=== PATIENT | female | born 1970 | race Caucasian/White ===

== ENCOUNTER 2016-07-07 13:45 | Emergency (ER) | payer OTHER ==
[2016-07-07 14:40] VITALS: BP 127/65
--- NOTE | 2016-07-07 14:41 | ER Document Report ---
ED Medical Screen (RME) - General Stated Complaint: POSSIBLE CONCUSSION Notes: pt was kneeling on her couch hanging a picture when she lost her balance and fell back and hit the back of her head on the edge of her coffee table. -LOC scalp hematoma confusion and drowsiness, dizziness for 15-20 minutesafter her fall nausea without vomiting headache is not on any blood thinners headache currently 3/5 took ibuprofen last night and today with minimal relief PMH: SLE TRAVEL OUTSIDE OF THE [place] IN LAST 30 DAYS: No - Related Data Allergies/Adverse Reactions: sulfamethoxazole [From ] Allergy (Verified 07/07/16 14:37) trimethoprim [From Febra] Allergy (Verified 07/07/16 14:37) Past Medical History Endocrine Medical History: Reports: Hx Diabetes Mellitus Type 2, Hx Hypothyroidism Psychiatric Medical History: Reports: Hx Attention Deficit Hyperactivity Disorder Past Surgical History: Reports: Hx Abdominal Surgery - gastric bypass,hernia, Hx Section, Hx Cholecystectomy, Hx Gastric Bypass Surgery, Hx Herniorrhaphy - With mesh, Hx Thyroid Surgery - Immunizations Immunizations up to date: Yes Hx Diphtheria, Pertussis, Tetanus Vaccination: No
--- NOTE | 2016-07-07 17:13 | ER Document Report ---
[id number] Notes: The patient is a 45-year-old female who presents with mild swelling at the back of her head where she hit it on a corner table last night. She did not lose consciousness. She took Motrin with relief of her symptoms and her headache resolved. She denies neck pain, left inner use, numbness, tingling, ataxia, blurry vision, nausea or vomiting. TRAVEL OUTSIDE OF THE [place] IN LAST 30 DAYS: No - Related Data Allergies/Adverse Reactions: sulfamethoxazole [From ] Allergy (Verified 07/07/16 14:37) trimethoprim [From Febra] Allergy (Verified 07/07/16 14:37) Past Medical History - General Information source: Patient - Social History Smoking Status: Current Every Day Smoker Chew tobacco use (# tins/day): No Frequency of alcohol use: None Drug Abuse: None Family History: Malignancy, Other Patient has suicidal ideation: No Patient has homicidal ideation: No Endocrine Medical History: Reports: Hx Diabetes Mellitus Type 2, Hx Hypothyroidism Renal/ Medical History: Denies: Hx Peritoneal Dialysis Psychiatric Medical History: Reports: Hx Attention Deficit Hyperactivity Disorder Past Surgical History: Reports: Hx Abdominal Surgery - gastric bypass,hernia, Hx Section, Hx Cholecystectomy, Hx Gastric Bypass Surgery, Hx Herniorrhaphy - With mesh, Hx Thyroid Surgery - Immunizations Immunizations up to date: Yes Hx Diphtheria, Pertussis, Tetanus Vaccination: No Review of Systems - Review of Systems Notes: REVIEW OF SYSTEMS: CONSTITUTIONAL: -fevers, -chills EENT: -eye pain, -difficulty swallowing, -nasal congestion CARDIOVASCULAR:-chest pain, -syncope. RESPIRATORY: -cough, -SOB GASTROINTESTINAL: -abdominal pain, - nausea, -vomiting, -diarrhea GENITOURINARY: -dysuria, -hematuria MUSCULOSKELETAL: -back pain, -neck pain SKIN: -rash or skin lesions. HEMATOLOGIC: -easy bruising or bleeding. LYMPHATIC: -swollen, enlarged glands. NEUROLOGICAL: -altered mental status or loss of consciousness, +headache, - neurologic symptoms PSYCHIATRIC: -anxiety, -depression. ALL OTHER SYSTEMS REVIEWED AND NEGATIVE. Physical Exam - Vital signs Vitals: Temp Pulse Resp BP Pulse Ox 98.1 F 80 18 127/65 H 96 07/07/16 14:37 07/07/16 14:37 07/07/16 14:37 07/07/16 14:37 07/07/16 14:37 - Notes Notes: PHYSICAL EXAMINATION: GENERAL: Well-appearing, well-nourished and in no acute distress. HEAD: Small hematoma over right parietal area, no open wounds, normocephalic. EYES: Pupils equal round and reactive to light, extraocular movements intact, sclera anicteric, conjunctiva are normal. ENT: nares patent, oropharynx clear without exudates. Moist mucous membranes. NECK: Normal range of motion, supple without lymphadenopathy LUNGS: Breath sounds clear to auscultation bilaterally and equal. No wheezes rales or rhonchi. HEART: Regular rate and rhythm without murmurs ABDOMEN: Soft, nontender, normoactive bowel sounds. No guarding, no rebound. No masses appreciated. EXTREMITIES: Normal range of motion, no pitting or edema. No cyanosis. NEUROLOGICAL: Cranial nerves grossly intact. Normal speech, normal gait. Normal sensory, motor, and reflex exams. PSYCH: Normal mood, normal affect. SKIN: Warm, Dry, normal turgor, no rashes or lesions noted. Course - Re-evaluation Re-evalutation: CT head ordered before I could see patient. No intracranial bleeding or skull fracture on CT had. Small right parietal hematoma. Instructed patient symptomatically management and given concussion precautions. She understands. - Vital Signs Vital signs: Temp Pulse Resp BP Pulse Ox 98.1 F 80 18 127/65 H 96 07/07/16 16:05 07/07/16 16:05 07/07/16 16:05 07/07/16 16:05 07/07/16 16:05 Discharge - Discharge Clinical Impression: Hematoma Head injury Qualifiers: Encounter type: initial encounter Qualified Code(s): S09.90XA - Unspecified injury of head, initial encounter Condition: Good Disposition: HOME, SELF-CARE Additional Instructions: Concussion You have suffered a concussion -- a temporary loss of certain brain functions due to a mild brain injury. The recovery is usually rapid and complete. The temporary problems occurring with a concussion can include loss of consciousness, dizziness, nausea, vomiting, and confusion. Repeat concussions can cause brain damage. In the future, avoid activities that will cause a blow to your head. Wear a helmet for sports such as snowboarding, biking, or skating. It's important that someone be with you for the first 24 hours. During this time, do not exercise or drive a vehicle. Do not take any pain medication stronger than acetaminophen unless prescribed by the physician. Any significant changes should be reported immediately to the physician. Signs of a problem may include: (1) Mental confusion (2) Incoordination or staggering (3) Repeated or forceful vomiting (4) Clear or bloody drainage from ear, mouth, or nose (5) Severe headache, not relieved by acetaminophen or prescribed pain medication (6) Failure to improve in 24 hours
== END 2016-07-07 16:30 | disposition home or self-care (01) ==
LOC: ER 13:45
DX: S09.90XA Unspecified injury of head, initial encounter (principal); R22.0 Localized swelling, mass and lump, head; R51 Headache; F17.210 Nicotine dependence, cigarettes, uncomplicated; X58.XXXA Exposure to other specified factors, initial encounter
CPT/HCPCS: 70450; 99283

== ENCOUNTER 2019-12-01 19:38 | Inpatient (IN) | payer OTHER ==
[2019-12-01] MEDS ORDERED: DEXTROSE 5%-WATER 250 ML with NOREPINEPHRINE BITARTRATE 4 MG IV PRN ×4 (20:09→22:57)
[2019-12-01] MEDS ORDERED: RINGERS LACTATED IV ONE (20:14)
[2019-12-01] MEDS ORDERED: VANCOMYCIN HCL INJ 1000 MG VIAL IV ONE (20:14)
[2019-12-01] MEDS ORDERED: PIPERACILLIN/TAZOBACTAM 4.5 GM VIAL IV ONE (20:14)
--- NOTE | 2019-12-01 20:23 | ER Document Report ---
ED General - General Chief Complaint: Respiratory Arrest Stated Complaint: RESPIRATORY DISTRESS TRAVEL OUTSIDE OF THE [place] IN LAST 30 DAYS: No - HPI Notes: Chief complaint: Cardiorespiratory arrest HPI: 49-year-old female with past history of gastric bypass surgery and SLE found down on the floor at home by family under undetermined circumstances. Family members felt that she was not breathing did not have a pulse and they initiated bystander CPR. EMS was called. Upon their arrival patient had a thready pulse and was still not breathing. They did not administer Narcan. They checked the blood sugar and reported this was 140. They attempted orotracheal intubation and patient vomited a large amount and I suspect that she aspirated. They subsequently placed an I-GEL airway. They were unable to obtain peripheral IV access and placed on intraosseous line. They administered a liter of saline and transported the patient. Her systolic blood pressure was 80 during transport. No other information is immediately available for this patient. - Related Data Allergies/Adverse Reactions: sulfamethoxazole [From ] Allergy (Verified 12/01/19 20:16) trimethoprim [From Febra] Allergy (Verified 12/01/19 20:16) Past Medical History - General Information source: Emergency Med Personnel, [facility] Records - Social History Smoking Status: Unknown if Ever Smoked Family History: Malignancy, Other Endocrine Medical History: Reports: Hx Diabetes Mellitus Type 2, Hx Hypothyroidism Renal/ Medical History: Denies: Hx Peritoneal Dialysis Musculoskeletal Medical History: Reports Hx Systemic Lupus Erythematosus Psychiatric Medical History: Reports: Hx Attention Deficit Hyperactivity Disorder Past Surgical History: Reports: Hx Abdominal Surgery - gastric bypass,hernia, Hx Section, Hx Cholecystectomy, Hx Gastric Bypass Surgery, Hx Herniorrhaphy - With mesh, Hx Thyroid Surgery - Immunizations Immunizations up to date: Yes Hx Diphtheria, Pertussis, Tetanus Vaccination: No Review of Systems - Review of Systems -: Yes ROS unobtainable due to patient's medical condition Physical Exam - Vital signs Vitals: Temp 93.4 F L 12/01/19 19:40 - Notes Notes: GENERAL: Obese middle-aged female with I-GEL airway in place being bagged on arrival. SKIN: Pale, cool and diaphoretic. Multiple abrasions noted over both upper extremities. HEAD: Normocephalic atraumatic. EYES: Pupils are mid position equal and sluggishly reactive to light. Gaze is conjugate. Conjunctivae and sclerae clear. EARS: CANALS AND TMS CLEAR. NOSE: CLEAR. MOUTH: I-GEL tube in mouth. Moist mucosa. Good dentition. No stridor or edema. No drooling. NECK: Semirigid c-collar in situ. No masses or thyromegaly. No adenopathy. Carotids 2+ without bruits. No JVD. BACK: Not examined initially. CHEST: Patient is being bagged at this time. Breath sounds clear and symmetrical. HEART: Regular rhythm. No murmur gallop or rub. ABDOMEN: Soft obese nontender without masses, organomegaly or rebound. Healed midline surgical scar present bowel sounds normally active. No bruits. GENITALIA: Normal female. EXTREMITIES: IO line is present in the left pretibial region. No edema. No calf tenderness. Cap refill less than 1.5 seconds. Dorsalis pedis and posterior tibial pulses 3+ and symmetrical. NEUROLOGICAL: GCS 3T. No posturing. Course - Re-evaluation Re-evalutation: 12/01/19 21:47 This lady was intubated upon presentation with report that she had had a cardiorespiratory arrest in the field. She was persistently unresponsive. Rapid sequence intubation was accomplished without difficulty. Patient is on mechanical ventilation. She has had 30 cc/kg of crystalloid per sepsis protocol. Blood cultures were drawn. She is hypothermic. We empirically gave her IV antibiotic coverage with Zosyn and vancomycin. Her lactate was approximately 3.5. She also has a new elevation of creatinine to 2.0 consistent with acute kidney injury. Her EKG showed some QT prolongation but no axis shift. She had no acute ST or T wave changes. Her initial troponin is within normal range. Her urine tox screen was remarkable for opiates. We subsequently found out that there were suicide notes in the home and patient had access to tramadol and this is a suspected agent that she ingested. She is continuing to require support with Levophed. Patient has been accepted for admission to the critical care unit. - Vital Signs Vital signs: Temp Pulse Resp BP Pulse Ox 93.4 F L 15 113/84 100 12/01/19 20:51 12/01/19 20:51 12/01/19 20:51 12/01/19 20:41 - Laboratory Result Diagrams: 12/01/19 20:22 12/01/19 20:22 Laboratory results interpreted by me: 12/01/19 12/01/19 12/01/19 20:09 20:22 20:22 RBC 3.56 L MCV 103 H MCH 34.7 H RDW 15.1 H Lymph % (Auto) 11.7 L Seg Neutrophils % 83.9 H Carbonic Acid ABG pH ABG pCO2 Sodium 136.0 L Chloride 96 L Creatinine 2.01 H Est GFR ( Amer) 32 L Est GFR (MDRD) Non-Af 26 L Glucose 132 H POC Glucose Lactic Acid AST 83 H Total Protein 9.1 H Urine Protein 100 H Salicylates Acetaminophen 12/01/19 12/01/19 12/01/19 20:22 20:22 20:32 RBC MCV MCH RDW Lymph % (Auto) Seg Neutrophils % Carbonic Acid 1.75 H ABG pH 7.18 L* ABG pCO2 58.1 H Sodium Chloride Creatinine Est GFR ( Amer) Est GFR (MDRD) Non-Af Glucose POC Glucose Lactic Acid 3.9 H AST Total Protein Urine Protein Salicylates < 1.0 L Acetaminophen < 10 L 12/01/19 21:06 RBC MCV MCH RDW Lymph % (Auto) Seg Neutrophils % Carbonic Acid ABG pH ABG pCO2 Sodium Chloride Creatinine Est GFR ( Amer) Est GFR (MDRD) Non-Af Glucose POC Glucose 114 H Lactic Acid AST Total Protein Urine Protein Salicylates Acetaminophen - EKG Interpretation by Me Additional EKG results interpreted by me: 12/01/19 20:29 Twelve-lead EKG from 1956 hrs. is reviewed contemporaneously by me showing normal sinus rhythm with a rate of 73 and a QRS axis of +17 degrees. QT interval is prolonged with a corrected QT of 543 ms. There are no acute ST/T wa ve changes present. When compared to prior tracing from 12/31/2013 we note interval development of QT prolongation. Indication for current study: Status post cardiopulmonary arrest. Procedures - Intubation Orotracheal Airway evaluation: Copious secretions, Neck immobility, Obese Mallampati Classification: Class 3 Medications: Etomidate, Succinylcholine Intubation method: Orotracheal Blade type: Other - [place] scope Blade size: 3 Equipment used: Glidescope ETT size: 7.5 ETT secured at: Teeth ETT secured at (cm): 22 Breath Sounds after Intubation: Equal End tidal CO2 confirmed: Yes Ventilator settings: SIMV Intubation Complications: No complications Critical Care Note - Critical Care Note Total time excluding time spent on procedures (mins): 75 - Patient presented status post cardiorespiratory arrest. I have intubated her. Sepsis protocol initiated. She is hypothermic. Levophed IV for shock. Discharge - Discharge Clinical Impression: Cardiopulmonary arrest with successful resuscitation Opiate overdose Qualifiers: Encounter type: initial encounter Injury intent: undetermined intent Qualified Code(s): T40.604A - Poisoning by unspecified narcotics, undetermined, initial encounter Condition: Critical Disposition: ADMITTED INPATIENT Admitting Provider: Malcolm Mccrary Unit Admitted: ICU
[2019-12-01 20:33] LABS: APPEARANCE,URINE CLEAR; BILIRUBIN,URINE NEGATIVE (NEGATIVE); COLOR,URINE YELLOW; GLUCOSE, URINE NEGATIVE (NEGATIVE); KETONES,URINE NEGATIVE (NEGATIVE); PROTEIN,URINE 100 mg/dL (NEGATIVE); URINE SPECIFIC GRAVITY 1.008; UROBILINOGEN,URINE NEGATIVE mg/dL (<2.0)
[2019-12-01 20:44] LABS: ABSOLUTE MONOCYTES (AUTO) 0.3 10^3/uL (0.1-1.4); ABSOLUTE NEUT (AUTO) 7.1 10^3/uL (1.7-8.2); BASOPHILS % (AUTO) 0.3 % (0-2); EOSINOPHILS % (AUTO) 0.1 % (0-6); HEMATOCRIT 36.6 % (36.0-47.0); HEMOGLOBIN 12.3 g/dL (12.0-15.5); LYMPHOCYTES % (AUTO) 11.7 % (13-45); MEAN CORPUSCULAR HEMOGLOBIN 34.7 pg (27.0-33.4); MEAN CORPUSCULAR HGB CONC 33.7 g/dL (32.0-36.0); MEAN CORPUSCULAR VOLUME 103 fl (80-97); PLATELET COUNT 239 10^3/uL (150-450); RED BLOOD COUNT 3.56 10^6/uL (3.72-5.28); RED CELL DISTRIBUTION WIDTH 15.1 % (11.5-14.0); SEGMENTED NEUTROPHILS % (AUTO) 83.9 % (42-78); TOTAL CELLS COUNTED % (AUTO) 100 %; WHITE BLOOD COUNT 8.5 10^3/uL (4.0-10.5)
[2019-12-01] MEDS ORDERED: ETOMIDATE INJ/PF 20 MG/10 ML SDV IV ONE (20:45)
[2019-12-01] MEDS ORDERED: SUCCINYLCHOLINE CHLORIDE INJ 200 MG/10 ML VIAL IV ONE (20:45)
[2019-12-01 20:51] LABS: INTERNATIONAL RATION (INR) 1.01; PROTHROMBIN TIME 13.3 SEC (11.4-15.4)
--- NOTE | 2019-12-01 20:53 | RADIOLOGY REPORT (SQ) ---
EXAM DESCRIPTION: XR CHEST 1 VIEW COMPLETED DATE/TME: 12/01/2019 20:10 CLINICAL HISTORY: 49 years, Female, post-intubation COMPARISON: Prior study from 04/23/2015 NUMBER OF VIEWS: 2 TECHNIQUE: 2 frontal radiographs of the chest were acquired. LIMITATIONS: None. FINDINGS: Endotracheal tube tip is located within the trachea, approximately 3.4 cm above the parveen. Enteric drainage tube tip curls within the gastric fundus. Cardiac and mediastinal contours are stable. Lungs are clear. No pleural effusion or pneumothorax. There is diffuse gaseous distention of visualized bowel loops throughout the imaged upper abdomen. The stomach is also distended with gas. IMPRESSION: Clear lungs. Endotracheal tube tip is located within the trachea, approximately 3.4 cm above the parveen. Diffuse dilatation of bowel loops throughout the imaged upper abdomen, indeterminate. copyright 2010 [employer]- All Rights Reserved
[2019-12-01 21:09] LABS: ALKALINE PHOSPHATASE 121 U/L (38-126); ANION GAP 13 (5-19); ASPARTATE AMINO TRANSFERASE 83 U/L (14-36); BILIRUBIN,DIRECT 0.3 mg/dL (0.0-0.4); BILIRUBIN,TOTAL 0.6 mg/dL (0.2-1.3); BLOOD UREA NITROGEN 14 mg/dL (7-20); CARBON DIOXIDE 27 mmol/L (22-30); CHLORIDE 96 mmol/L (98-107); GLUCOSE 132 mg/dL (75-110); POTASSIUM 4.2 mmol/L (3.6-5.0); TOTAL PROTEIN 9.1 g/dL (6.3-8.2)
[2019-12-01 21:11] LABS: ACETAMINOPHEN < 10 ug/mL (10-30); ALCOHOL < 10 mg/dL (NONE DETECTED); SALICYLATE < 1.0 mg/dL (2.0-20.0)
[2019-12-01 21:26] LABS: URINE AMPHETAMINES SCREEN NEGATIVE; URINE BARBITURATES SCREEN NEGATIVE; URINE BENZODIAZEPINES SCREEN NEGATIVE; URINE COCAINE SCREEN NEGATIVE; URINE MARIJUANA (THC) SCREEN NEGATIVE; URINE METHADONE SCREEN NEGATIVE; URINE PHENCYCLIDINE SCREEN NEGATIVE
[2019-12-01 21:27] LABS: ARTERIAL BLOOD BASE EXCESS -7.4 mmol/L; ARTERIAL BLOOD H2CO3 1.75 mmol/L (1.05-1.35); ARTERIAL BLOOD HCO3 21.4 mmol/L (20-24); ARTERIAL BLOOD O2 SATURATION 95.5 % (94-98); ARTERIAL BLOOD PCO2 58.1 mmHg (35-45); ARTERIAL BLOOD PO2 96.4 mmHg (80-100); ARTERIAL BLOOD TOTAL CO2 23.2 mmol/L (21-25)
[2019-12-01 21:29] LABS: ARTERIAL BLOOD FIO2 100%; ARTERIAL BLOOD PH 7.18 (7.35-7.45)
[2019-12-01] MEDS ORDERED: DEXTROSE 50%-WATER 25 GM/50 ML DISP.SYRIN IV PRN ×4 (22:57→23:03)
[2019-12-01] MEDS ORDERED: DEXTROSE 40% GEL 15 GM TUBE PO PRN ×4 (22:57→23:03)
[2019-12-01] MEDS ORDERED: GLUCAGON,HUMAN RECOMB 1 MG INJ SUBCUT PRN (22:57)
[2019-12-01] MEDS ORDERED: GLUCAGON,HUMAN RECOMB 1 MG INJ IM PRN (23:03)
[2019-12-01] MEDS ORDERED: AMPICILLIN SOD/SULBACTAM 3 GM VIAL IV ONE (23:10)
--- NOTE | 2019-12-01 23:23 | EKG REPORT ---
SEVERITY:- ABNORMAL ECG - SINUS RHYTHM NONSPECIFIC T ABNORMALITIES, LATERAL LEADS PROLONGED QT INTERVAL : Confirmed by: Beryl Downing 01-Dec-2019 23:22:35
[2019-12-01] MEDS ORDERED: HEPARIN SOD (PORCINE) 5,000 UNIT/ML 1 ML VIAL SUBCUT ONE (23:30)
[2019-12-01] MEDS ORDERED: PANTOPRAZOLE SODIUM 40 MG VIAL IV ONE (23:30)
--- NOTE | 2019-12-01 23:44 | RADIOLOGY REPORT (SQ) ---
INDICATION: trauma. TECHNIQUE: A single cross table lateral view(s) of the cervical spine. 2310 hours COMPARISON: None FINDINGS: Imaging skull base to C5. C6 and C7 are not adequately seen. No acute displaced fractures identified the visualized portion of the cervical spine. Alignment appears anatomic. . IMPRESSION: No acute displaced fracture is identified of the upper cervical spine.
[2019-12-02] MEDS ORDERED: ETOMIDATE INJ/PF 20 MG/10 ML SDV IV ONE (01:00)
[2019-12-02] MEDS ORDERED: NOREPINEPHRINE BITARTRATE INJ/PF 4 MG/4 ML SDV IV ONE (01:00)
[2019-12-02] MEDS ORDERED: SUCCINYLCHOLINE CHLORIDE INJ 200 MG/10 ML VIAL ONE (01:00)
[2019-12-02] MEDS: INSULIN REG, HUMAN 100 UNIT/ML 3 ML VIAL (PYX) SUBCUT SCH ×4 (01:00→18:25)
--- NOTE | 2019-12-02 01:13 | RADIOLOGY REPORT (SQ) ---
INDICATION: ams. Pain post fall COMPARISON: None CORRELATION: None TECHNIQUE: Noncontrast spiral axial CT images were obtained from the skull base to vertex. Noncontrast spiral axial CT imaging through the cervical spine with multiplanar reconstructions. This exam was performed according to our departmental dose-optimization program, which includes automated exposure control, adjustment of the mA and/or kV according to patient size and/or use of iterative reconstruction techniques. FINDINGS: BRAIN: There is no evidence of acute intracranial hemorrhage, midline shift, mass effect or mass lesion. Meade-white differentiation is normal. There is no evidence of acute large territory infarct. Ventricles and extracerebral spaces are within normal limits, for age. Vascular calcification The visualized paranasal sinuses are grossly clear. The orbits and eyeballs are unremarkable. The mastoid air cells are clear. Skull base and calvarium appear intact. CERVICAL SPINE: No acute displaced fracture is identified of the cervical spine. Alignment is anatomic. No focal alignment abnormality is identified. The uncovertebral joints and facets are within normal limits, for age. Surrounding soft tissues of the neck are unremarkable. Mild vascular calcification. Endotracheal tube and nasogastric tube are identified. Mild dependent airspace disease right upper lobe. IMPRESSION: No acute intracranial process is identified. No acute bony injury is seen to the cervical spine.
--- NOTE | 2019-12-02 01:28 | CRITICAL CARE ADMISSION REPORT ---
[facility] Date:: 12/01/19 Time:: 10:30 Reason for ICU Reason:: Respiratory Failure, Hypotension. HPI: 49 year-old female with a history of SLE, chronic back pain and gastric bypass surgery. She was found on the floor at home by her family and was not breathing. Family initiated CPR and activated EMS. EMS found patient to have a thready pulse but was still not breathing. Patient did vomit a large amount and aspiration is suspected. Patient was intubated on arrival in the emergency department. She had multiple episodes of hypotension and a Levophed drip was started. Critical care was called to evaluate the patient given her acute respiratory failure hypotension. Extensive conversation held with family including the patient's sister, and daughter and who is her next of kin. Family all agree that she would not have wanted to be intubated and they would like her to be extubated this evening. In review of the patient's prior stated wishes as well as a consensus from family members, the decision was made to remove ventilatory support. Family has been permitted to visit during what could be an end-of-life situation. They understand that when extubated, patient may very well survive and the outcome would be unknown. At this time, patient is arousable and remains intubated while awaiting family. History obtained from:: Chart documentation - Diagnosis/Plan (1) Respiratory failure requiring intubation Is this a current diagnosis for this admission?: Yes Plan: Initial ABG in ED showed a pH of 7.18 and a PCO2 of 58. SPO2 was also decreased. Patient's ventilation mode was changed to pressure control with a minute ventilation of 8 L/min. SPO2 has since improved. 1. Patient likely with acute aspiration pneumonia. Will start Unasyn. 2. Obtain ABG 30 minutes after transfer to intensive care unit to evaluate vent settings. 3. Obtain chest x-ray in a.m. Through verbal report from ED RN, patient may wish to be made DNR. I will reach out to her family this evening to discuss her CODE STATUS and options for withdrawing vent support if that is in line with her previously stated desires. (2) Cardiopulmonary arrest with successful resuscitation Is this a current diagnosis for this admission?: Yes Plan: As mentioned above, patient may have had wishes to be DNR. Family however, initiated CPR at home and resuscitative efforts such as intubation were continued once in the emergency department without any knowledge of her wishes. I will reach out to her family to discuss goals of care. I will also be speaking to the family to see if central venous access is desired and if so, will obtain consent. 1. Continue patient on Levophed for now. 2. Central line for vasoactive medications to be placed upon family's consent. 3. Maintain MAP greater than 70. (3) Opiate overdose Qualifiers: Encounter type: initial encounter Injury intent: undetermined intent Qualified Code(s): T40.604A - Poisoning by unspecified narcotics, undetermined, initial encounter Is this a current diagnosis for this admission?: Yes Plan: Patient reportedly took a large dose of tramadol and has been on chronic opioids for back pain. According to RN and Norberto Walls report, notes left and the patient home may indicate a suicide attempt. If patient's family desire extubation due to her previously stated wishes, we will administer Narcan prior to extubation. Past Medical History Endocrine Medical History: Reports: Diabetes Mellitus Type 2, Hypothyroidism Psychiatric Medical History: Reports: Attention Deficit Hyperactivity Disorder Past Surgical History Past Surgical History: Reports: Section, Cholecystectomy, Gastric Bypass Surgery, Herniorrhaphy - With mesh Social/Family History - Social History Social History Note: Report from Norberto Walls indicate possible suicide attempt with multiple suicide notes left in her home. Smoking Status: Unknown if Ever Smoked - Medication/Allergies Home Medications: Lamotrigine [Lamictal 100 mg Tablet] 200 mg PO QAM 12/31/13 Lamotrigine [Lamictal 100 mg Tablet] 400 mg PO QHS 12/31/13 Levothyroxine Sodium [Synthroid] 175 mcg PO DAILY 12/31/13 Metformin HCl [Glucophage] 1,000 mg PO DAILY 12/31/13 Zolpidem Tartrate [Ambien CR 12.5 mg Tablet] 12.5 mg PO QHS 12/31/13 Albuterol Sulfate [Proair HFA Inhalation Aerosol 8.5 gm MDI] 2 puff IH Q4 PRN #1 mdi 02/22/15 Cetirizine HCl [Zyrtec 10 mg Tablet] 10 mg PO DAILY 02/22/15 Cholecalciferol (Vitamin D3) [Vitamin D-3] 1.25 mg PO DAILY 02/22/15 Cyanocobalamin (Vitamin B-12) [Vitamin B-12] 1,000 mcg PO [id number] 02/22/15 Prednisone 60 mg PO DAILY #5 tablet 02/22/15 Hydrocodone/Acetaminophen [[place] 5-325 mg Tablet] 1 tab PO PRN PRN #10 tablet 02/09/16 Allergies/Adverse Reactions: sulfamethoxazole [From Septra] Allergy (Verified 12/01/19 20:16) trimethoprim [From Septra] Allergy (Verified 12/01/19 20:16) Review of Systems ROS unobtainable: Due to endotracheal tube Physical Exam Vital Signs: Temp Pulse Resp BP Pulse Ox 94.3 F L 16 167/90 H 94 12/01/19 22:21 12/01/19 22:21 12/01/19 22:21 12/01/19 22:21 Intake & Output 11/30/19 12/01/19 12/02/19 06:59 06:59 06:59 Intake Total 0 Output Total 1999 Balance -1999 Weight 87.4 kg Weight/Height Weight 87.4 kg Height 5 ft 6 in General appearance: PRESENT: no acute distress Head exam: PRESENT: atraumatic Eye exam: PRESENT: EOMI, PERRLA Mouth exam: PRESENT: dry mucosa Neck exam: PRESENT: other - Awaiting cervical spine clearance. Currently in cervical spine immobilizer. Respiratory exam: PRESENT: rhonchi. ABSENT: rales, wheezes Cardiovascular exam: PRESENT: RRR, +S1, +S2 Pulses: PRESENT: +2 pedal pulses bilateral Vascular exam: PRESENT: normal capillary refill GI/Abdominal exam: PRESENT: hypoactive bowel sounds, soft. ABSENT: tenderness Extremities exam: PRESENT: full ROM. ABSENT: joint swelling, pedal edema Musculoskeletal exam: PRESENT: full ROM, normal inspection Neurological exam: PRESENT: awake, CN II-XII grossly intact Tubes/Lines: PRESENT: Endotracheal Tube Laboratory/Radiographs Laboratory Results: 12/01/19 20:22 12/01/19 20:22 12/01/19 12/01/19 12/01/19 20:09 20:22 20:22 WBC 8.5 RBC 3.56 L Hgb 12.3 Hct 36.6 MCV 103 H MCH 34.7 H MCHC 33.7 RDW 15.1 H Plt Count 239 Seg Neutrophils % 83.9 H Carbonic Acid HCO3/H2CO3 Ratio ABG pH ABG pCO2 ABG pO2 ABG HCO3 ABG O2 Saturation ABG Base Excess FiO2 Sodium 136.0 L Potassium 4.2 Chloride 96 L Carbon Dioxide 27 Anion Gap 13 BUN 14 Creatinine 2.01 H Est GFR ( Amer) 32 L Glucose 132 H Lactic Acid Calcium 9.0 Total Bilirubin 0.6 AST 83 H Alkaline Phosphatase 121 Total Protein 9.1 H Albumin 5.0 Serum HCG, Qual Urine Color YELLOW Urine Appearance CLEAR Urine pH 5.0 Ur Specific [place] 1.008 Urine Protein 100 H Urine Glucose (UA) NEGATIVE Urine Ketones NEGATIVE Urine Blood NEGATIVE 12/01/19 12/01/19 12/01/19 20:22 20:22 20:32 WBC RBC Hgb Hct MCV MCH MCHC RDW Plt Count Seg Neutrophils % Carbonic Acid 1.75 H HCO3/H2CO3 Ratio 12:1 ABG pH 7.18 L* ABG pCO2 58.1 H ABG pO2 96.4 ABG HCO3 21.4 ABG O2 Saturation 95.5 ABG Base Excess -7.4 FiO2 100% Sodium Potassium Chloride Carbon Dioxide Anion Gap BUN Creatinine Est GFR ( Amer) Glucose Lactic Acid 3.9 H Calcium Total Bilirubin AST Alkaline Phosphatase Total Protein Albumin Serum HCG, Qual NEGATIVE Urine Color Urine Appearance Urine pH Ur Specific [place] Urine Protein Urine Glucose (UA) Urine Ketones Urine Blood 12/01/19 20:22 Troponin I 0.031 Impressions: Chest X-Ray 12/01/19 20:10 IMPRESSION: Clear lungs. Endotracheal tube tip is located within the trachea, approximately 3.4 cm above the parveen. Diffuse dilatation of bowel loops throughout the imaged upper abdomen, indeterminate. copyright 2011 [employer]- All Rights Reserved All labs, radiographs, diagnostic studies and EKGs were personally reviewed: Yes In addition, reports of radiographic and diagnostic studies were read: Yes Critical Time Critical Time (minutes): 75 -: The care of a critically ill patient is dynamic. This note represents a static moment in the admission process. Orders and treatments may be given simultaneously and urgently, and time is not human resources hr representative of the treatment process. This patient requires Critical Care secondary to life threatening organ or limb dysfunction. Without Critical Care services, the patient is at risk for increased mortality and morbidity.
[2019-12-02] MEDS ORDERED: NALOXONE HCL INJ 2 MG/2 ML DISP.SYRIN IV ONE (01:30)
[2019-12-02] MEDS: NALOXONE HCL INJ 2 MG/2 ML DISP.SYRIN ONE ×2 (01:44)
[2019-12-02] MEDS ORDERED: AMPICILLIN SOD/SULBACTAM 3 GM VIAL ONE (01:52)
[2019-12-02] MEDS ORDERED: IPRATROPIUM/ALBUTEROL 0.5-2.5 MG/3 ML AMPUL NEB ONE ×2 (02:45→03:00)
[2019-12-02] MEDS ORDERED: PANTOPRAZOLE SODIUM 40 MG VIAL IV ONE (03:48)
[2019-12-02 05:16] LABS: ALBUMIN 4.2 g/dL (3.5-5.0); ALKALINE PHOSPHATASE 97 U/L (38-126); ANION GAP 10 (5-19); ASPARTATE AMINO TRANSFERASE 74 U/L (14-36); BILIRUBIN,DIRECT 0.1 mg/dL (0.0-0.4); BILIRUBIN,TOTAL 0.6 mg/dL (0.2-1.3); BLOOD UREA NITROGEN 11 mg/dL (7-20); CALCIUM 8.4 mg/dL (8.4-10.2); CARBON DIOXIDE 27 mmol/L (22-30); CHLORIDE 95 mmol/L (98-107); GLUCOSE 116 mg/dL (75-110); POTASSIUM 4.3 mmol/L (3.6-5.0); TOTAL PROTEIN 7.7 g/dL (6.3-8.2)
[2019-12-02 05:18] LABS: HEMATOCRIT 34.2 % (36.0-47.0); HEMOGLOBIN 11.6 g/dL (12.0-15.5); MEAN CORPUSCULAR HGB CONC 33.9 g/dL (32.0-36.0); MEAN CORPUSCULAR VOLUME 100 fl (80-97); PLATELET COUNT 212 10^3/uL (150-450); RED BLOOD COUNT 3.41 10^6/uL (3.72-5.28); RED CELL DISTRIBUTION WIDTH 14.8 % (11.5-14.0); WHITE BLOOD COUNT 6.5 10^3/uL (4.0-10.5)
[2019-12-02] MEDS: HEPARIN SOD (PORCINE) 5,000 UNIT/ML 1 ML VIAL SUBCUT SCH ×3 (05:55→21:31)
[2019-12-02 06:00] LABS: ABSOLUTE LYMPHOCYTES# (MANUAL) 0.8 10^3/uL (0.5-4.7); ABSOLUTE MONOCYTES # (MANUAL) 0.4 10^3/uL (0.1-1.4); BAND NEUTROPHILS % (MANUAL) 6 % (3-5); BASOPHILS % (MANUAL) 0 % (0-2); EOSINOPHILS % (MANUAL) 0 % (0-6); LYMPHOCYTES % (MANUAL) 13 % (13-45); MONOCYTES % (MANUAL) 6 % (3-13); RBC MORPHOLOGY COMMENT NORMO-CYTIC/CHROMIC; SEGMENTED NEUTROPHILS % (MAN) 75 % (42-78); TOTAL CELLS COUNTED 100
[2019-12-02 06:01] LABS: PLATELET COMMENT ADEQUATE
[2019-12-02] MEDS: RINGERS SOLUTION,LACTATED 1,000 ML IV PRN ×3 (08:01→23:16)
--- NOTE | 2019-12-02 09:03 | PDOC CRITICAL CARE PROG REPORT ---
General Date:: 12/02/19 ICU Day:: 2 Hospital Day:: 2 Resuscitation Status: Do Not Resuscitate Events in the past 12 to 24 Hours:: Extubated and made DNR/DNI by family and her own wishes. Review of systems relevant to events:: Respiratory, rheumotalogical Reason for ICU Addmission:: Respiratory Failure, Hypotension. Intubated until this AM - Medications: Medications reviewed and adjusted accordingly: Yes Vasopressors:: None Sedation:: None Physical Exam Vital Signs: Temp Pulse Resp BP Pulse Ox 99.7 F 81 11 L 80/61 L 93 12/02/19 05:44 12/02/19 02:51 12/02/19 08:33 12/02/19 06:13 12/02/19 08:33 Intake & Output 12/01/19 12/02/19 12/03/19 06:59 06:59 06:59 Intake Total 2621 Output Total 3025 Balance -404 Weight 85.5 kg Weight/Height Weight 85.5 kg Height 5 ft 7 in General appearance: PRESENT: no acute distress Head exam: PRESENT: atraumatic, normocephalic Eye exam: PRESENT: conjunctiva pink, EOMI, PERRLA. ABSENT: scleral icterus Ear exam: PRESENT: normal external ear exam Mouth exam: PRESENT: moist, tongue midline Neck exam: ABSENT: carotid bruit, JVD, lymphadenopathy, thyromegaly Respiratory exam: PRESENT: clear to auscultation rasta, decreased breath sounds, other - Shallow Cardiovascular exam: PRESENT: RRR. ABSENT: diastolic murmur, rubs, systolic m urmur GI/Abdominal exam: PRESENT: normal bowel sounds, soft. ABSENT: distended, guarding, mass, organolmegaly, rebound, tenderness Rectal exam: PRESENT: deferred Gentrourinary exam: PRESENT: indwelling catheter Extremities exam: PRESENT: full ROM. ABSENT: calf tenderness, clubbing, pedal edema Musculoskeletal exam: PRESENT: normal inspection Neurological exam: PRESENT: altered, other - Arousable but still altered. Psychiatric exam: PRESENT: flat affect Skin exam: PRESENT: dry, intact, warm. ABSENT: cyanosis, rash Laboratory/Radiographs Laboratory Results: 12/02/19 04:37 12/02/19 04:37 12/01/19 12/01/19 12/01/19 20:09 20:22 20:22 WBC 8.5 RBC 3.56 L Hgb 12.3 Hct 36.6 MCV 103 H MCH 34.7 H MCHC 33.7 RDW 15.1 H Plt Count 239 Seg Neutrophils % 83.9 H Carbonic Acid HCO3/H2CO3 Ratio ABG pH ABG pCO2 ABG pO2 ABG HCO3 ABG O2 Saturation ABG Base Excess FiO2 Sodium 136.0 L Potassium 4.2 Chloride 96 L Carbon Dioxide 27 Anion Gap 13 BUN 14 Creatinine 2.01 H Est GFR ( Amer) 32 L Glucose 132 H Lactic Acid Calcium 9.0 Total Bilirubin 0.6 AST 83 H Alkaline Phosphatase 121 Total Protein 9.1 H Albumin 5.0 Serum HCG, Qual Urine Color YELLOW Urine Appearance CLEAR Urine pH 5.0 Ur Specific [place] 1.008 Urine Protein 100 H Urine Glucose (UA) NEGATIVE Urine Ketones NEGATIVE Urine Blood NEGATIVE 12/01/19 12/01/19 12/01/19 20:22 20:22 20:32 WBC RBC Hgb Hct MCV MCH MCHC RDW Plt Count Seg Neutrophils % Carbonic Acid 1.75 H HCO3/H2CO3 Ratio 12:1 ABG pH 7.18 L* ABG pCO2 58.1 H ABG pO2 96.4 ABG HCO3 21.4 ABG O2 Saturation 95.5 ABG Base Excess -7.4 FiO2 100% Sodium Potassium Chloride Carbon Dioxide Anion Gap BUN Creatinine Est GFR ( Amer) Glucose Lactic Acid 3.9 H Calcium Total Bilirubin AST Alkaline Phosphatase Total Protein Albumin Serum HCG, Qual NEGATIVE Urine Color Urine Appearance Urine pH Ur Specific [place] Urine Protein Urine Glucose (UA) Urine Ketones Urine Blood 12/02/19 12/02/19 12/02/19 01:06 04:37 04:37 WBC 6.5 RBC 3.41 L Hgb 11.6 L Hct 34.2 L MCV 100 H MCH 34.0 H MCHC 33.9 RDW 14.8 H Plt Count 212 Seg Neutrophils % Not Reportable Carbonic Acid HCO3/H2CO3 Ratio ABG pH ABG pCO2 ABG pO2 ABG HCO3 ABG O2 Saturation ABG Base Excess FiO2 Sodium Potassium Chloride Carbon Dioxide Anion Gap BUN Creatinine Est GFR ( Amer) Glucose Lactic Acid 3.2 H 2.8 H Calcium Total Bilirubin AST Alkaline Phosphatase Total Protein Albumin Serum HCG, Qual Urine Color Urine Appearance Urine pH Ur Specific [place] Urine Protein Urine Glucose (UA) Urine Ketones Urine Blood 12/02/19 04:37 WBC RBC Hgb Hct MCV MCH MCHC RDW Plt Count Seg Neutrophils % Carbonic Acid HCO3/H2CO3 Ratio ABG pH ABG pCO2 ABG pO2 ABG HCO3 ABG O2 Saturation ABG Base Excess FiO2 Sodium 132.1 L Potassium 4.3 Chloride 95 L Carbon Dioxide 27 Anion Gap 10 BUN 11 Creatinine 1.54 H Est GFR ( Amer) 44 L Glucose 116 H Lactic Acid Calcium 8.4 Total Bilirubin 0.6 AST 74 H Alkaline Phosphatase 97 Total Protein 7.7 Albumin 4.2 Serum HCG, Qual Urine Color Urine Appearance Urine pH Ur Specific [place] Urine Protein Urine Glucose (UA) Urine Ketones Urine Blood 12/01/19 12/02/19 20:22 04:37 Troponin I 0.031 NT-Pro-B Natriuret Pep 3010 H Impressions: Chest X-Ray 12/01/19 20:10 IMPRESSION: Clear lungs. Endotracheal tube tip is located within the trachea, approximately 3.4 cm above the parveen. Diffuse dilatation of bowel loops throughout the imaged upper abdomen, indeterminate. copyright 2011 [employer]- All Rights Reserved Cervical Spine X-Ray 12/01/19 22:29 IMPRESSION: No acute displaced fracture is identified of the upper cervical spine. Cervical Spine CT 12/01/19 23:45 IMPRESSION: No acute intracranial process is identified. No acute bony injury is seen to the cervical spine. Head CT 12/02/19 00:29 IMPRESSION: No acute intracranial process is identified. No acute bony injury is seen to the cervical spine. All labs, radiographs, diagnostic studies and EKGs were personally reviewed: Yes In addition, reports of radiographic and diagnostic studies were read: Yes Assessment and Plan - Diagnosis (1) SLE (systemic lupus erythematosus related syndrome) Is this a current diagnosis for this admission?: Yes Plan: Apparently this has been very debilitating for and conducive to her DNR staus. (2) Cardiopulmonary arrest with successful resuscitation Is this a current diagnosis for this admission?: Yes Plan: This was at home and begun by family. Her recovery has been within a few hours so I'm not sure how real this arrest was. It sounds like a respiratory event. (3) Opiate overdose Qualifiers: Encounter type: initial encounter Injury intent: undetermined intent Qualified Code(s): T40.604A - Poisoning by unspecified narcotics, undetermined, initial encounter Is this a current diagnosis for this admission?: Yes Plan: She is still sleepy but arousable. Not quite ready to downgrade. (4) Respiratory failure requiring intubation Is this a current diagnosis for this admission?: Yes Plan: She is now extubated. Plan Summary: Will allow more metabolism of medications before exploring how real a suicide attempt this may have been. Critical Time Critical Time (minutes): 35 Level of Care: ICU Anticipated discharge: Home Within: Other -: 1. The care of a critical patient is a dynamic process. This note is a franchise sales representative synopsis but static in nature. The timeframe for treatments given in order is not necessarily the actual time these treatments may have been done. 2. This patient requires critical care secondary to ongoing requirements for therapy not offered or safe outside the critical care environment. Transfer to a lower level of care will result in altered life or limb morbidity and morta lity. 3. Multidisciplinary rounds completed. 4. ABCDE bundle addressed.
[2019-12-02] MEDS: PANTOPRAZOLE SODIUM 40 MG VIAL IV SCH ×2 (11:02→21:31)
[2019-12-02 20:09] LABS: ARTERIAL BLOOD BASE EXCESS 3.1 mmol/L; ARTERIAL BLOOD H2CO3 1.62 mmol/L (1.05-1.35); ARTERIAL BLOOD HCO3 29.5 mmol/L (20-24); ARTERIAL BLOOD O2 SATURATION 96.5 % (94-98); ARTERIAL BLOOD PCO2 53.8 mmHg (35-45); ARTERIAL BLOOD PH 7.36 (7.35-7.45); ARTERIAL BLOOD PO2 90.3 mmHg (80-100); ARTERIAL BLOOD TOTAL CO2 31.2 mmol/L (21-25)
[2019-12-02 20:44] LABS: ARTERIAL BLOOD FIO2 90%
[2019-12-03] MEDS: INSULIN REG, HUMAN 100 UNIT/ML 3 ML VIAL (PYX) SUBCUT SCH ×5 (00:36→23:46)
[2019-12-03 04:33] LABS: ABSOLUTE LYMPHOCYTES (AUTO) 0.6 10^3/uL (0.5-4.7); ABSOLUTE MONOCYTES (AUTO) 0.2 10^3/uL (0.1-1.4); ABSOLUTE NEUT (AUTO) 6.2 10^3/uL (1.7-8.2); BASOPHILS % (AUTO) 0.1 % (0-2); EOSINOPHILS % (AUTO) 0.3 % (0-6); HEMATOCRIT 29.7 % (36.0-47.0); HEMOGLOBIN 10.3 g/dL (12.0-15.5); LYMPHOCYTES % (AUTO) 8.3 % (13-45); MEAN CORPUSCULAR HEMOGLOBIN 34.6 pg (27.0-33.4); MEAN CORPUSCULAR HGB CONC 34.7 g/dL (32.0-36.0); MEAN CORPUSCULAR VOLUME 100 fl (80-97); MONOCYTES % (AUTO) 2.4 % (3-13); PLATELET COUNT 163 10^3/uL (150-450); RED BLOOD COUNT 2.98 10^6/uL (3.72-5.28); RED CELL DISTRIBUTION WIDTH 15.1 % (11.5-14.0); SEGMENTED NEUTROPHILS % (AUTO) 88.9 % (42-78); TOTAL CELLS COUNTED % (AUTO) 100 %; WHITE BLOOD COUNT 6.9 10^3/uL (4.0-10.5)
[2019-12-03 04:50] LABS: ANION GAP 6 (5-19); BLOOD UREA NITROGEN 8 mg/dL (7-20); CALCIUM 8.3 mg/dL (8.4-10.2); CARBON DIOXIDE 31 mmol/L (22-30); CHLORIDE 96 mmol/L (98-107); POTASSIUM 4.2 mmol/L (3.6-5.0)
[2019-12-03 04:55] LABS: GLUCOSE 66 mg/dL (75-110)
[2019-12-03] MEDS: HEPARIN SOD (PORCINE) 5,000 UNIT/ML 1 ML VIAL SUBCUT SCH ×3 (05:04→21:11)
[2019-12-03] MEDS: RINGERS SOLUTION,LACTATED 1,000 ML IV PRN (07:30)
[2019-12-03] MEDS: PANTOPRAZOLE SODIUM 40 MG VIAL IV SCH (09:12)
--- NOTE | 2019-12-03 09:34 | EKG REPORT ---
SEVERITY:- ABNORMAL ECG - SINUS RHYTHM CONSIDER ANTEROSEPTAL INFARCT BORDERLINE PROLONGED QT INTERVAL : Confirmed by: Naomi Rodriguez MD 03-Dec-2019 09:33:23
[2019-12-03] MEDS: HYDROCORTISONE SOD SUCCINATE INJ/PF 100 MG/2 ML SDV IV SCH ×2 (14:07→21:11)
--- NOTE | 2019-12-03 14:38 | Progress Note ---
Provider Note Provider Note: Patient is now fully awake. When asked what happened she described many stresses, sister on hospice, daughter moving out, but not suicidal. "I didn't want to ". She is not suicidal now. Still a bit groggy. Will downgrade, feed and get OOB.
--- NOTE | 2019-12-03 21:20 | XCELERA REPORT ---
[address] [address] Transthoracic Echocardiogram Report Name: ANN MARIE HAND Age: 49 yrs Gender: Female : 1970 Patient Status: Inpatient Patient Location: ICU^603^A Study Date: 12/03/2019 10:00 AM Procedure: A two-dimensional transthoracic echocardiogram with color flow and Doppler was performed. Study Quality: Fair. Reason For Study: cardiac arrest / Elevated troponin History: cardiac arrest / Elevated troponin. Ordering Physician: SELVIN CALDWELL Performed By: Lesia Layne Interpretation Summary The left ventricle is normal in size. There is normal left ventricular wall thickness. LV EF is > 60% Left ventricular systolic function is normal. Doppler measurements suggest normal left ventricular diastolic function The left ventricular wall motion is normal. There is no thrombus. Probably no ASD ,VSD,or PFO seen. The right ventricle is grossly normal size. The right atrium is normal. The left atrial size is normal. There is no evidence of mitral valve prolapse. There is no vegetation seen on the mitral valve. There is no mitral valve stenosis. There is a trace amount of mitral regurgitation There is no aortic valvular vegetation. There is no aortic valve stenosis There is no LVOT obstruction. No aortic regurgitation is present. There is a trace amount of tricuspid regurgitation Tricuspid regurgitation jet envelope not well defined to measure RV systolic pressure accurately. There is no pulmonic valvular stenosis. The aortic root is normal size. The inferior vena cava appeared normal and decreased > 50% with respiration (RAP 5-10 mmHg) There is no pericardial effusion. MMode/2D Measurements & Calculations RVDd: 4.1 cm LVIDd: 3.7 cm FS: 31.5 % Ao root diam: 3.0 cm IVSd: 0.86 cm LVIDs: 2.5 cm EDV(Teich): 57.3 ml Ao root area: 6.9 cm2 LVPWd: 1.0 cm ESV(Teich): 22.8 ml EF(Teich): 60.2 % Doppler Measurements & Calculations MV E max calos: MV dec slope: Ao V2 max: LV V1 max P.1 cm/sec 120.3 cm/sec 4.3 mmHg MV A max calos: 321.2 cm/sec2 Ao max PG: LV V1 max: 71.3 cm/sec MV dec time: 0.27 sec 5.8 mmHg 104.0 cm/sec MV E/A: 1.2 PA V2 max: PI end-d calos: 77.6 cm/sec 90.4 cm/sec PA max P.4 mmHg Left Ventricle The left ventricle is normal in size. There is normal left ventricular wall thickness. LV EF is > 60%. Left ventricular systolic function is normal. Doppler measurements suggest normal left ventricular diastolic function. The left ventricular wall motion is normal. There is no thrombus. Probably no ASD ,VSD,or PFO seen. Right Ventricle The right ventricle is grossly normal size. The right ventricle is not well visualized secondary to technical limitations. Atria The right atrium is normal. The left atrial size is normal. Mitral Valve There is no evidence of mitral valve prolapse. There is no vegetation seen on the mitral valve. There is no mitral valve stenosis. There is a trace amount of mitral regurgitation. Aortic Valve There is no aortic valvular vegetation. There is no aortic valve stenosis. There is no LVOT obstruction. No aortic regurgitation is present. Tricuspid Valve There is no tricuspid stenosis. There is a trace amount of tricuspid regurgitation. Tricuspid regurgitation jet envelope not well defined to measure RV systolic pressure accurately. Pulmonic Valve There is no pulmonic valvular stenosis. There is a trace amount of pulmonic regurgitation. Great Vessels The aortic root is normal size. The inferior vena cava appeared normal and decreased > 50% with respiration (RAP 5-10 mmHg). Effusions There is no pericardial effusion. : SELVIN CALDWELL Lakshmi
[2019-12-04] MEDS: HEPARIN SOD (PORCINE) 5,000 UNIT/ML 1 ML VIAL SUBCUT SCH ×3 (05:22→22:02)
[2019-12-04] MEDS: HYDROCORTISONE SOD SUCCINATE INJ/PF 100 MG/2 ML SDV IV SCH (05:28)
[2019-12-04] MEDS: INSULIN REG, HUMAN 100 UNIT/ML 3 ML VIAL (PYX) SUBCUT SCH ×2 (06:14→11:41)
[2019-12-04] MEDS ORDERED: LAMOTRIGINE PO SCH (10:00)
[2019-12-04] MEDS: LAMOTRIGINE 100 MG TABLET PO SCH (10:18)
[2019-12-04] MEDS: HYDROXYCHLOROQUINE SULFATE 200 MG TABLET PO SCH ×2 (11:40→18:03)
--- NOTE | 2019-12-04 13:37 | PDOC PROGRESS REPORT ---
Subjective Progress Note for:: 12/04/19 Subjective:: As per admission note patient is 49 year-old female with a history of SLE, chronic back pain and gastric bypass surgery. She was found on the floor at home by her family and was not breathing. Family initiated CPR and activated EMS. EMS found patient to have a thready pulse but was still not breathing. Patient did vomit a large amount and aspiration is suspected. Patient was intubated on arrival in the emergency department. She had multiple episodes of hypotension and a Levophed drip was started. Critical care was called to evaluate the patient given her acute respiratory failure hypotension. 12/04/2019. No acute events overnight. Comfortably sitting with no apparent distress. Cooperative with physical examination, alert and oriented x3, denies any fever, chills, nausea, vomiting, diarrhea, constipation or urinary symptoms. Reason For Visit: RESPIRATORY FAILURE, HYPOTENSION, OPIOID OVERDOSE. Physical Exam Vital Signs: Temp Pulse Resp BP Pulse Ox 98.7 F 73 16 131/67 H 86 L 12/04/19 07:37 12/04/19 07:37 12/04/19 07:37 12/04/19 07:37 12/04/19 07:37 Intake & Output 12/03/19 12/04/19 12/05/19 06:59 06:59 06:59 Intake Total 1906 1996 120 Output Total 595 305 Balance 1311 1691 120 Weight 90.1 kg 91.2 kg General appearance: PRESENT: no acute distress, obese, well-developed, well-nou rished Head exam: PRESENT: atraumatic, normocephalic Respiratory exam: PRESENT: clear to auscultation rasta. ABSENT: rales, rhonchi, wheezes Cardiovascular exam: PRESENT: RRR. ABSENT: diastolic murmur, rubs, systolic murmur GI/Abdominal exam: PRESENT: normal bowel sounds, soft. ABSENT: distended, g uarding, mass, organolmegaly, rebound, tenderness Neurological exam: PRESENT: alert, awake, oriented to person, oriented to place, oriented to time, oriented to situation, CN II-XII grossly intact. ABSENT: motor sensory deficit Skin exam: PRESENT: dry, intact, warm. ABSENT: cyanosis, rash Results Laboratory Results: 12/03/19 04:12 12/03/19 04:12 12/01/19 12/02/19 12/02/19 20:22 04:37 20:39 Troponin I 0.031 0.382 NT-Pro-B Natriuret Pep 3010 H 12/03/19 04:12 Troponin I 0.297 NT-Pro-B Natriuret Pep Impressions: Chest X-Ray 12/01/19 20:10 IMPRESSION: Clear lungs. Endotracheal tube tip is located within the trachea, approximately 3.4 cm above the parveen. Diffuse dilatation of bowel loops throughout the imaged upper abdomen, indeterminate. copyright 2011 [employer]- All Rights Reserved Cervical Spine X-Ray 12/01/19 22:29 IMPRESSION: No acute displaced fracture is identified of the upper cervical spine. Cervical Spine CT 12/01/19 23:45 IMPRESSION: No acute intracranial process is identified. No acute bony injury is seen to the cervical spine. Head CT 12/02/19 00:29 IMPRESSION: No acute intracranial process is identified. No acute bony injury is seen to the cervical spine. Assessment and Plan - Diagnosis (1) Acute respiratory failure Qualifiers: Respiratory failure complication: unspecified whether with hypoxia or hypercapnia Qualified Code(s): J96.00 - Acute respiratory failure, unspecified whether with hypoxia or hypercapnia Is this a current diagnosis for this admission?: Yes Plan: Improving. SPO2 WNL on 4 L nasal cannula. Acute respiratory failure due to intentional opiate overdose. Patient intubated on the scene initially transferred to ICU, extubated on 12/03/2019 and transferred to floor. Monitor vitals. Continue supplemental oxygen. Continue nebs as needed. (2) Suicidal ideation Is this a current diagnosis for this admission?: Yes Plan: Presently denies any suicidal or homicidal ideation however as per admission note patient had intentional opiate overdose in a suicide note was found. Continue one-to-one monitoring. Monitor vitals. Will consult psychiatry for further evaluation. (3) Opiate overdose Qualifiers: Encounter type: initial encounter Injury intent: undetermined intent Qualified Code(s): T40.604A - Poisoning by unspecified narcotics, undetermined, initial encounter Is this a current diagnosis for this admission?: Yes Plan: Alert and oriented x3, in no apparent distress. SPO2 WNL on 4 L nasal cannula. Continue supplemental oxygen. Monitor for respiratory depression. Monitor vitals. Monitor for withdrawal. (4) Respiratory failure requiring intubation Is this a current diagnosis for this admission?: Yes Plan: Plan as per #1. (5) SLE (systemic lupus erythematosus related syndrome) Is this a current diagnosis for this admission?: Yes Plan: Does not seem to be acutely exacerbated. Restart home meds. Outpatient rheumatology and PCP follow-up.
[2019-12-04] MEDS: CLINDAMYCIN HCL 150 MG CAPSULE PO SCH ×2 (15:37→22:02)
[2019-12-04] MEDS ORDERED: ZOLPIDEM TARTRATE 12.5 MG PO SCH (22:00)
[2019-12-04] MEDS ORDERED: ZOLPIDEM TARTRATE 5 MG TABLET PO SCH (22:00)
[2019-12-05] MEDS: HEPARIN SOD (PORCINE) 5,000 UNIT/ML 1 ML VIAL SUBCUT SCH ×3 (05:15→21:28)
[2019-12-05] MEDS: CLINDAMYCIN HCL 150 MG CAPSULE PO SCH (05:15)
[2019-12-05 06:11] LABS: ABSOLUTE LYMPHOCYTES (AUTO) 0.8 10^3/uL (0.5-4.7); ABSOLUTE MONOCYTES (AUTO) 0.4 10^3/uL (0.1-1.4); ABSOLUTE NEUT (AUTO) 8.6 10^3/uL (1.7-8.2); BASOPHILS % (AUTO) 0.3 % (0-2); EOSINOPHILS % (AUTO) 0.4 % (0-6); HEMOGLOBIN 10.6 g/dL (12.0-15.5); LYMPHOCYTES % (AUTO) 8.1 % (13-45); MEAN CORPUSCULAR HEMOGLOBIN 34.1 pg (27.0-33.4); MEAN CORPUSCULAR HGB CONC 34.2 g/dL (32.0-36.0); MEAN CORPUSCULAR VOLUME 100 fl (80-97); MONOCYTES % (AUTO) 4.5 % (3-13); PLATELET COUNT 194 10^3/uL (150-450); RED BLOOD COUNT 3.11 10^6/uL (3.72-5.28); RED CELL DISTRIBUTION WIDTH 15.3 % (11.5-14.0); SEGMENTED NEUTROPHILS % (AUTO) 86.7 % (42-78); TOTAL CELLS COUNTED % (AUTO) 100 %; WHITE BLOOD COUNT 9.9 10^3/uL (4.0-10.5)
[2019-12-05 06:32] LABS: ANION GAP 8 (5-19); BLOOD UREA NITROGEN 9 mg/dL (7-20); CALCIUM 8.9 mg/dL (8.4-10.2); CARBON DIOXIDE 31 mmol/L (22-30); CHLORIDE 95 mmol/L (98-107); GLUCOSE 85 mg/dL (75-110); POTASSIUM 3.7 mmol/L (3.6-5.0)
[2019-12-05] MEDS: LAMOTRIGINE 100 MG TABLET PO SCH (09:01)
[2019-12-05] MEDS: HYDROXYCHLOROQUINE SULFATE 200 MG TABLET PO SCH ×2 (09:02→19:47)
[2019-12-05] MEDS: CEFTRIAXONE 1 GM/D5W RTU 1 GM/50 ML RTUPB IV SCH (11:09)
--- NOTE | 2019-12-05 11:20 | PDOC CONSULTATION ---
Consultation-Blank Consultation: Met with Patient at request of attending physician. Patient is status post overdose suicide attempt with subsequent mechanical intubation and extubation. Patient reported overdosing on ambien and lamictal but denied on taking any opioids at time of overdose, despite her positive urine toxicology screen for opiates. Patient reported she recalls coming to the decision to overdose secondary to feeling overwhelmed by her 23 year old daughter deciding to move out with her boyfriend, the of her dog, and the impending loss of her sister to cancer. Patient reported she was not taking her Lamictal appropriately prior to the suicide attempt, rather she was taking it intermittently when she felt as though she needed it. She denied previous suicide attempts or inpatient psychiatric hospitalizations, but reported a long history of Bipolar Disorder and being treated by Dr. Velazquez at [facility] for medication management and [facility] for therapy. Patient reported regret for the suicide attempt and indicated it was a moment of feeling overwhelmed. She stated she plans on staying with her sister and nephews upon discharge from hospital as she feels as great deal of support from them. She continued to state she felt as though her daughter did not love or care or about her despite the Patient's sister telling her otherwise. Patient reported she wished to continue medication management and individual therapy at [facility]. Patient was alert and oriented to person, place, time, and circumstance. Mood was reserved but euthymic with mood congruent affect. She denied suicidal/homicidal ideation, intent or plan. She denied auditory/visual hallucinations and delusions absent. Thought processes were linear, logical, and organized. Conversational speech was within normal limits for rate, tone, and prosody. Eye contact was well maintained. Intellectual abilities were estimated within the average range. Attention and concentration was within normal limits. Insight, judgment, and impulse control was fair but historically poor. Medication recommendation from consulting psychiatrist: 1. Add Depakote 250 mg twice per day 2. Discontinue Lamictal Impression/Plan: Patient is cleared from acute psychiatric services. Patient is s/p overdose suicide attempt (near miss). Patient reported she is regretful for her attempt and indicated she was overwhelmed in the moment. Patient identified a positive support system she can rely on and indicated a desire to return to [facility] for medication management and individual therapy. Patient reported the Lamictal was not an effective medication for her and was willing to try Depakote. Despite the seriousness of Patient's suicide attempt last week, at time of consult she did not meet criteria for inpatient psychiatric placement as she maintained insight to her attempt, demonstrated regret, and identified a safe outpatient treatment plan to help maintain her safety upon discharge. Thank you for this referral. Please contact the behavioral health team should you have any questions regarding this consult @ extension [phone].
--- NOTE | 2019-12-05 12:12 | PDOC PROGRESS REPORT ---
Subjective Progress Note for:: 12/05/19 Subjective:: As per admission note patient is 49 year-old female with a history of SLE, chronic back pain and gastric bypass surgery. She was found on the floor at home by her family and was not breathing. Family initiated CPR and activated EMS. EMS found patient to have a thready pulse but was still not breathing. Patient did vomit a large amount and aspiration is suspected. Patient was intubated on arrival in the emergency department. She had multiple episodes of hypotension and a Levophed drip was started. Critical care was called to evaluate the patient given her acute respiratory failure hypotension. 12/04/2019. No acute events overnight. Comfortably sitting with no apparent distress. Cooperative with physical examination, alert and oriented x3, denies any fever, chills, nausea, vomiting, diarrhea, constipation or urinary symptoms. 12/05/2019. No acute events overnight. Patient comfortably resting in bed no apparent distress, would like to go home however patient is still dependent on supplemental O2 feeling too weak to get off the bed. Denies any fever, chills, nausea, vomiting, diarrhea, constipation or any urinary symptoms. Patient has been evaluated by psych department patient is not deemed to be suicidal and does not need to be IVCd at this point as per psychiatry evaluation. Reason For Visit: RESPIRATORY FAILURE, HYPOTENSION, OPIOID OVERDOSE. Physical Exam Vital Signs: Temp Pulse Resp BP Pulse Ox 98.6 F 66 15 128/67 H 91 L 12/05/19 07:42 12/05/19 07:42 12/05/19 07:42 12/05/19 07:42 12/05/19 07:42 Intake & Output 12/04/19 12/05/19 12/06/19 06:59 06:59 06:59 Intake Total 1995 120 50 Output Total 305 Balance 1691 120 50 Weight 91.2 kg General appearance: PRESENT: no acute distress, obese, well-developed, well- nourished Head exam: PRESENT: atraumatic, normocephalic Respiratory exam: PRESENT: clear to auscultation rasta, crackles - Left lower lobe. ABSENT: rales, rhonchi, wheezes Cardiovascular exam: PRESENT: RRR. ABSENT: diastolic murmur, rubs, systolic murmur GI/Abdominal exam: PRESENT: normal bowel sounds, soft. ABSENT: distended, guarding, mass, organolmegaly, rebound, tenderness Neurological exam: PRESENT: alert, awake, oriented to person, oriented to place, oriented to time, oriented to situation, CN II-XII grossly intact. ABSENT: motor sensory deficit Psychiatric exam: PRESENT: depressed Skin exam: PRESENT: dry, intact, warm. ABSENT: cyanosis, rash Results Laboratory Results: 12/05/19 05:25 12/05/19 05:25 12/05/19 12/05/19 05:25 05:25 WBC 9.9 RBC 3.11 L Hgb 10.6 L Hct 31.0 L MCV 100 H MCH 34.1 H MCHC 34.2 RDW 15.3 H Plt Count 194 Seg Neutrophils % 86.7 H Sodium 134.3 L Potassium 3.7 Chloride 95 L Carbon Dioxide 31 H Anion Gap 8 BUN 9 Creatinine 1.04 Est GFR ( Amer) > 60 Glucose 85 Calcium 8.9 Magnesium 1.8 12/01/19 20:22 Blood Blood Culture - Final Staphylococcus Aureus Aerococcus Viridans 12/01/19 12/02/19 12/02/19 20:22 04:37 20:39 Troponin I 0.031 0.382 NT-Pro-B Natriuret Pep 3010 H 12/03/19 04:12 Troponin I 0.297 NT-Pro-B Natriuret Pep Impressions: Chest X-Ray 12/01/19 20:10 IMPRESSION: Clear lungs. Endotracheal tube tip is located within the trachea, approximately 3.4 cm above the parveen. Diffuse dilatation of bowel loops throughout the imaged upper abdomen, indeterminate. copyright 2011 [employer]- All Rights Reserved Cervical Spine X-Ray 12/01/19 22:29 IMPRESSION: No acute displaced fracture is identified of the upper cervical spine. Cervical Spine CT 12/01/19 23:45 IMPRESSION: No acute intracranial process is identified. No acute bony injury is seen to the cervical spine. Head CT 12/02/19 00:29 IMPRESSION: No acute intracranial process is identified. No acute bony injury is seen to the cervical spine. Assessment and Plan - Diagnosis (1) Acute respiratory failure Qualifiers: Respiratory failure complication: hypoxia and hypercapnia Qualified Code(s): J96.01 - Acute respiratory failure with hypoxia; J96.02 - Acute respiratory failure with hypercapnia Is this a current diagnosis for this admission?: Yes Plan: Improving. SPO2 WNL on 4 L nasal cannula. Acute respiratory failure due to intentional opiate overdose, aspiration myelitis or pneumonia. Patient intubated on the scene initially transferred to ICU, extubated on 12/03/2019 and transferred to floor. Continue ceftriaxone. Incentive spirometry. Monitor vitals. Continue supplemental oxygen. Continue duo nebs (2) Gram-positive cocci bacteremia Is this a current diagnosis for this admission?: Yes Plan: Blood culture admission 06/29+ for MSSA and Aerococcus viridans. No sign of systemic infection. Repeat cultures no growth so far. Afebrile. WBC WNL. Received 2 days of clindamycin. Currently on ceftriaxone day 1 for presumptive aspiration pneumonia/pneumonitis. (3) Suicidal ideation Is this a current diagnosis for this admission?: Yes Plan: Denies any suicidal homicidal ideation. As per psych evaluation patient is not a suicide risk at this point. Does not need to be IVCd. Please refer to psych note. As per admission note patient had intentional opiate overdose in a suicide note was found. Continue supportive measures. Outpatient psychiatry follow-up. (4) Opiate overdose Qualifiers: Encounter type: initial encounter Injury intent: undetermined intent Qualified Code(s): T40.604A - Poisoning by unspecified narcotics, undetermined, initial encounter Is this a current diagnosis for this admission?: Yes Plan: Alert and oriented x3, in no apparent distress. SPO2 WNL on 4 L nasal cannula. Continue supplemental oxygen. Monitor for respiratory depression. Monitor vitals. Monitor for withdrawal. (5) Respiratory failure requiring intubation Is this a current diagnosis for this admission?: Yes Plan: Plan as per #1. (6) SLE (systemic lupus erythematosus related syndrome) Is this a current diagnosis for this admission?: Yes Plan: Does not seem to be acutely exacerbated. Restart home meds. Outpatient rheumatology and PCP follow-up.
--- NOTE | 2019-12-05 13:14 | RADIOLOGY REPORT (SQ) ---
EXAM DESCRIPTION: CHEST 2 VIEWS IMAGES COMPLETED DATE/TIME: 12/05/2019 12:58 pm REASON FOR STUDY: Persistant hypoxia COMPARISON: 12/01/2019 NUMBER OF VIEWS: Two view TECHNIQUE: Frontal and lateral radiographic images of the chest acquired. LIMITATIONS: None. FINDINGS: LUNGS AND PLEURA: Airspace disease in the left lower lobe. No pneumothorax. MEDIASTINUM AND HILAR STRUCTURES: Stable heart size and mediastinal structures. HEART AND VASCULAR STRUCTURES: Stable appearance. SUPPORT DEVICES: Interval removal of endotracheal and nasogastric tubes. BONES: No acute findings. OTHER: No other significant finding. IMPRESSION: Atelectasis versus recurrent pneumonia left lower lobe status postextubation. TECHNICAL DOCUMENTATION: JOB ID: [id number] 2010 [employer]- All Rights Reserved Reading location - IP/workstation name: [email or web address]
[2019-12-05] MEDS: IPRATROPIUM/ALBUTEROL 0.5-2.5 MG/3 ML AMPUL NEB SCH ×2 (13:53→20:45)
[2019-12-06] MEDS: HEPARIN SOD (PORCINE) 5,000 UNIT/ML 1 ML VIAL SUBCUT SCH ×3 (05:10→22:12)
[2019-12-06] MEDS: IPRATROPIUM/ALBUTEROL 0.5-2.5 MG/3 ML AMPUL NEB SCH ×3 (08:51→20:06)
[2019-12-06 09:52] LABS: FREE T3 0.56 pg/mL (2.77-5.27)
[2019-12-06 09:55] LABS: FREE T4 (FREE THYROXINE) < 0.07 ng/dL (0.78-2.19)
[2019-12-06] MEDS: LAMOTRIGINE 100 MG TABLET PO SCH (10:22)
[2019-12-06] MEDS: HYDROXYCHLOROQUINE SULFATE 200 MG TABLET PO SCH ×2 (10:23→18:45)
[2019-12-06] MEDS: CEFTRIAXONE 1 GM/D5W RTU 1 GM/50 ML RTUPB IV SCH (10:23)
--- NOTE | 2019-12-06 11:10 | PDOC PROGRESS REPORT ---
Subjective Progress Note for:: 12/06/19 Subjective:: As per admission note patient is 49 year-old female with a history of SLE, chronic back pain and gastric bypass surgery. She was found on the floor at home by her family and was not breathing. Family initiated CPR and activated EMS. EMS found patient to have a thready pulse but was still not breathing. Patient did vomit a large amount and aspiration is suspected. Patient was intubated on arrival in the emergency department. She had multiple episodes of hypotension and a Levophed drip was started. Critical care was called to evaluate the patient given her acute respiratory failure hypotension. 12/04/2019. No acute events overnight. Comfortably sitting with no apparent distress. Cooperative with physical examination, alert and oriented x3, denies any fever, chills, nausea, vomiting, diarrhea, constipation or urinary symptoms. 12/05/2019. No acute events overnight. Patient comfortably resting in bed no apparent distress, would like to go home however patient is still dependent on supplemental O2 feeling too weak to get off the bed. Denies any fever, chills, nausea, vomiting, diarrhea, constipation or any urinary symptoms. Patient has been evaluated by psych department patient is not deemed to be suicidal and does not need to be IVCd at this point as per psychiatry evaluation. 12/06/2019. No acute events overnight. Patient comfortably sitting up in distress, patient still hypoxic on 6 L of oxygen on nasal cannula, complaining of feeling weak otherwise denies any chest pain, nausea, vomiting, diarrhea, constipation or any urinary symptoms. Reason For Visit: RESPIRATORY FAILURE, HYPOTENSION, OPIOID OVERDOSE. Physical Exam Vital Signs: Temp Pulse Resp BP Pulse Ox 97.9 F 79 18 135/70 H 93 12/05/19 19:17 12/05/19 20:46 12/06/19 03:00 12/05/19 19:17 12/06/19 06:10 Intake & Output 12/05/19 12/06/19 12/07/19 06:59 06:59 06:59 Intake Total 120 280 Balance 120 280 General appearance: PRESENT: obese Head exam: PRESENT: atraumatic, normocephalic Respiratory exam: PRESENT: clear to auscultation rasta, decreased breath sounds - Right lower lobe. ABSENT: rales, rhonchi, wheezes Cardiovascular exam: PRESENT: RRR. ABSENT: diastolic murmur, rubs, systolic murmur Rectal exam: PRESENT: deferred Extremities exam: PRESENT: full ROM. ABSENT: calf tenderness, clubbing, pedal edema Neurological exam: PRESENT: alert, awake, oriented to person, oriented to place, oriented to time, oriented to situation, CN II-XII grossly intact. ABSENT: motor sensory deficit Results Laboratory Results: 12/05/19 05:25 12/05/19 05:25 12/05/19 12/05/19 05:25 05:25 TSH 98.00 H Free T4 < 0.07 L Free T3 pg/mL 0.56 L 12/01/19 20:22 Blood Blood Culture - Final Staphylococcus Aureus Aerococcus Viridans 12/01/19 12/02/19 12/02/19 20:22 04:37 20:39 Troponin I 0.031 0.382 NT-Pro-B Natriuret Pep 3010 H 12/03/19 04:12 Troponin I 0.297 NT-Pro-B Natriuret Pep Impressions: Cervical Spine X-Ray 12/01/19 22:29 IMPRESSION: No acute displaced fracture is identified of the upper cervical spine. Cervical Spine CT 12/01/19 23:45 IMPRESSION: No acute intracranial process is identified. No acute bony injury is seen to the cervical spine. Head CT 12/02/19 00:29 IMPRESSION: No acute intracranial process is identified. No acute bony injury is seen to the cervical spine. Chest X-Ray 12/05/19 00:00 IMPRESSION: Atelectasis versus recurrent pneumonia left lower lobe status postextubation. Assessment and Plan - Diagnosis (1) Acute respiratory failure Qualifiers: Respiratory failure complication: hypoxia and hypercapnia Qualified Code(s): J96.01 - Acute respiratory failure with hypoxia; J96.02 - Acute respiratory failure with hypercapnia Is this a current diagnosis for this admission?: Yes Plan: Improving. SPO2 WNL on 4 L nasal cannula. Acute respiratory failure due to intentional opiate overdose, aspiration pneumonitis or pneumonia. Patient intubated on the scene initially transferred to ICU, extubated on 12/03/2019 and transferred to floor. Day 3 IV ceftriaxone. Incentive spirometry. Monitor vitals. Continue supplemental oxygen. Continue duo nebs (2) Gram-positive cocci bacteremia Is this a current diagnosis for this admission?: Yes Plan: Blood culture admission 06/29+ for MSSA and Aerococcus viridans. No sign of systemic infection. Repeat cultures no growth so far. Afebrile. WBC WNL. Received 2 days of clindamycin. Currently on ceftriaxone day 3 for presumptive aspiration pneumonia/pneumonitis. (3) Suicidal ideation Is this a current diagnosis for this admission?: Yes Plan: Denies any suicidal homicidal ideation. As per psych evaluation patient is not a suicide risk at this point. Does not need to be IVCd. Please refer to psych note. As per admission note patient had intentional opiate overdose in a suicide note was found. Continue supportive measures. Outpatient psychiatry follow-up. (4) Opiate overdose Qualifiers: Encounter type: initial encounter Injury intent: undetermined intent Qualified Code(s): T40.604A - Poisoning by unspecified narcotics, undetermined, initial encounter Is this a current diagnosis for this admission?: Yes Plan: Alert and oriented x3, in no apparent distress. SPO2 WNL on 4 L nasal cannula. Continue supplemental oxygen. Monitor for respiratory depression. Monitor vitals. Monitor for withdrawal. (5) Respiratory failure requiring intubation Is this a current diagnosis for this admission?: Yes Plan: Plan as per #1. (6) SLE (systemic lupus erythematosus related syndrome) Is this a current diagnosis for this admission?: Yes Plan: Does not seem to be acutely exacerbated. Restart home meds. Outpatient rheumatology and PCP follow-up. (7) Hypothyroidism Is this a current diagnosis for this admission?: Yes Plan: TSH 98, T4 0.07, T3 0.56. Random cortisol 19.3. We will start on levothyroxine 1.6 MCG per KG to be registered in 4 weeks by PCP. Patient already received 2 doses of 100 mg hydrocortisone IV every 8 on admission. (8) Pneumonia Qualifiers: Pneumonia type: aspiration pneumonia Is this a current diagnosis for this admission?: Yes Plan: Plan as per #1.
[2019-12-06] MEDS: LEVOTHYROXINE SODIUM 0.05 MG TABLET PO SCH (13:08)
[2019-12-06 18:05] LABS: ARTERIAL BLOOD BASE EXCESS 5.7 mmol/L; ARTERIAL BLOOD FIO2 50%; ARTERIAL BLOOD H2CO3 1.22 mmol/L (1.05-1.35); ARTERIAL BLOOD HCO3 29.6 mmol/L (20-24); ARTERIAL BLOOD O2 SATURATION 97.4 % (94-98); ARTERIAL BLOOD PCO2 40.6 mmHg (35-45); ARTERIAL BLOOD PH 7.48 (7.35-7.45); ARTERIAL BLOOD PO2 90.9 mmHg (80-100); ARTERIAL BLOOD TOTAL CO2 30.9 mmol/L (21-25)
[2019-12-06] MEDS ORDERED: HYDROCORTISONE SOD SUCCINATE INJ/PF 100 MG/2 ML SDV ONE (18:07)
[2019-12-06] MEDS ORDERED: HYDROCORTISONE SOD SUCCINATE INJ/PF 100 MG/2 ML SDV IV ONE (18:07)
[2019-12-06 18:28] LABS: HEMOGLOBIN 10.4 g/dL (12.0-15.5); MEAN CORPUSCULAR HEMOGLOBIN 34.4 pg (27.0-33.4); MEAN CORPUSCULAR HGB CONC 34.7 g/dL (32.0-36.0); MEAN CORPUSCULAR VOLUME 99 fl (80-97); PLATELET COUNT 201 10^3/uL (150-450); RED BLOOD COUNT 3.02 10^6/uL (3.72-5.28); RED CELL DISTRIBUTION WIDTH 15.2 % (11.5-14.0); WHITE BLOOD COUNT 5.6 10^3/uL (4.0-10.5)
--- NOTE | 2019-12-06 18:42 | RADIOLOGY REPORT (SQ) ---
EXAM DESCRIPTION: CHEST SINGLE VIEW IMAGES COMPLETED DATE/TIME: 12/06/2019 5:12 pm REASON FOR STUDY: hypoxia COMPARISON: 12/05/2019 EXAM PARAMETERS: NUMBER OF VIEWS: One view. TECHNIQUE: Single frontal radiographic view of the chest acquired. RADIATION DOSE: NA LIMITATIONS: None. FINDINGS: LUNGS AND PLEURA: There is improved aeration in the left lung base. No pleural effusion o r pneumothorax. MEDIASTINUM AND HILAR STRUCTURES: No masses. Contour normal. HEART AND VASCULAR STRUCTURES: Heart normal in size. Normal vasculature. BONES: No acute findings. HARDWARE: None in the chest. OTHER: No other significant finding. IMPRESSION: Improving aeration in the left lung base. TECHNICAL DOCUMENTATION: JOB ID: [id number] 2010 [employer]- All Rights Reserved Reading location - IP/workstation name: [email or web address]
[2019-12-06 18:44] LABS: ABSOLUTE LYMPHOCYTES# (MANUAL) 0.9 10^3/uL (0.5-4.7); ABSOLUTE MONOCYTES # (MANUAL) 0.3 10^3/uL (0.1-1.4); BAND NEUTROPHILS % (MANUAL) 2 % (3-5); BASOPHILS % (MANUAL) 0 % (0-2); EOSINOPHILS % (MANUAL) 3 % (0-6); LYMPHOCYTES % (MANUAL) 16 % (13-45); MONOCYTES % (MANUAL) 6 % (3-13); SEGMENTED NEUTROPHILS % (MAN) 73 % (42-78); TOTAL CELLS COUNTED 100
[2019-12-06 18:45] LABS: ALBUMIN 3.9 g/dL (3.5-5.0); ALKALINE PHOSPHATASE 98 U/L (38-126); ANION GAP 9 (5-19); ANISOCYTOSIS SLIGHT; ASPARTATE AMINO TRANSFERASE 28 U/L (14-36); BILIRUBIN,DIRECT 0.1 mg/dL (0.0-0.4); BILIRUBIN,TOTAL 0.5 mg/dL (0.2-1.3); BLOOD UREA NITROGEN 7 mg/dL (7-20); CALCIUM 8.7 mg/dL (8.4-10.2); CARBON DIOXIDE 29 mmol/L (22-30); CHLORIDE 97 mmol/L (98-107); GLUCOSE 185 mg/dL (75-110); PLATELET COMMENT ADEQUATE; POTASSIUM 3.1 mmol/L (3.6-5.0); TOTAL PROTEIN 7.2 g/dL (6.3-8.2)
[2019-12-06 18:47] LABS: RBC MORPHOLOGY COMMENT NORMO-CYTIC/CHROMIC
[2019-12-06] MEDS: POTASSI CL 20 MEQ/50 ML RIDER 20 MEQ/50 ML RTUPB IV SCH ×2 (20:24→22:13)
--- NOTE | 2019-12-06 21:49 | RADIOLOGY REPORT (SQ) ---
EXAM DESCRIPTION: CT HEAD WITHOUT IV CONTRAST COMPLETED DATE/TME: 12/06/2019 00:00 CLINICAL HISTORY: 49 years, Female, AMS EXAM DESCRIPTION: CLINICAL HISTORY: AMS COMPARISON: 12/02/2019 TECHNIQUE: Contiguous axial CT images of the head were obtained. Coronal and sagittal reconstructions were created from the axial data. This exam was performed according to our departmental dose-optimization program, which includes automated exposure control, adjustment of the mA and/or kV according to patient size and/or use of iterative reconstruction technique. FINDINGS: There is no evidence of acute mass, mass effect, midline shift or hemorrhage. The ventricles and extra-axial CSF spaces are unremarkable. The brain parenchyma appears normal for the patient's age. No acute abnormalities of the bones is seen. IMPRESSION: No acute intracranial abnormality.
[2019-12-06] MEDS ORDERED: POTASSIUM CHLORIDE 20 MEQ/50 ML RTU IV ONE (22:00)
[2019-12-07] MEDS: HEPARIN SOD (PORCINE) 5,000 UNIT/ML 1 ML VIAL SUBCUT SCH ×3 (06:00→21:52)
[2019-12-07] MEDS: LEVOTHYROXINE SODIUM 0.05 MG TABLET PO SCH (06:00)
[2019-12-07 06:02] LABS: HEMATOCRIT 29.8 % (36.0-47.0); HEMOGLOBIN 10.3 g/dL (12.0-15.5); MEAN CORPUSCULAR HEMOGLOBIN 34.4 pg (27.0-33.4); MEAN CORPUSCULAR HGB CONC 34.5 g/dL (32.0-36.0); MEAN CORPUSCULAR VOLUME 100 fl (80-97); PLATELET COUNT 203 10^3/uL (150-450); RED BLOOD COUNT 2.99 10^6/uL (3.72-5.28); RED CELL DISTRIBUTION WIDTH 15.2 % (11.5-14.0); WHITE BLOOD COUNT 6.8 10^3/uL (4.0-10.5)
[2019-12-07 06:26] LABS: ANION GAP 11 (5-19); BLOOD UREA NITROGEN 8 mg/dL (7-20); CALCIUM 8.8 mg/dL (8.4-10.2); CARBON DIOXIDE 28 mmol/L (22-30); CHLORIDE 97 mmol/L (98-107); GLUCOSE 152 mg/dL (75-110); POTASSIUM 3.9 mmol/L (3.6-5.0)
[2019-12-07] MEDS: IPRATROPIUM/ALBUTEROL 0.5-2.5 MG/3 ML AMPUL NEB SCH ×3 (08:24→20:18)
[2019-12-07] MEDS ORDERED: LEVOTHYROXINE SODIUM 0.05 MG TABLET PO ONE (08:30)
[2019-12-07] MEDS: CEFTRIAXONE 1 GM/D5W RTU 1 GM/50 ML RTUPB IV SCH (09:01)
[2019-12-07] MEDS: LAMOTRIGINE 100 MG TABLET PO SCH (09:01)
[2019-12-07] MEDS: HYDROXYCHLOROQUINE SULFATE 200 MG TABLET PO SCH ×2 (09:01→17:01)
--- NOTE | 2019-12-07 10:28 | PDOC PROGRESS REPORT ---
Subjective Progress Note for:: 12/07/19 Subjective:: As per admission note patient is 49 year-old female with a history of SLE, chronic back pain and gastric bypass surgery. She was found on the floor at home by her family and was not breathing. Family initiated CPR and activated EMS. EMS found patient to have a thready pulse but was still not breathing. Patient did vomit a large amount and aspiration is suspected. Patient was intubated on arrival in the emergency department. She had multiple episodes of hypotension and a Levophed drip was started. Critical care was called to evaluate the patient given her acute respiratory failure hypotension. 12/04/2019. No acute events overnight. Comfortably sitting with no apparent distress. Cooperative with physical examination, alert and oriented x3, denies any fever, chills, nausea, vomiting, diarrhea, constipation or urinary symptoms. 12/05/2019. No acute events overnight. Patient comfortably resting in bed no apparent distress, would like to go home however patient is still dependent on supplemental O2 feeling too weak to get off the bed. Denies any fever, chills, nausea, vomiting, diarrhea, constipation or any urinary symptoms. Patient has been evaluated by psych department patient is not deemed to be suicidal and does not need to be IVCd at this point as per psychiatry evaluation. 12/06/2019. No acute events overnight. Patient comfortably sitting up in distress, patient still hypoxic on 6 L of oxygen on nasal cannula, complaining of feeling weak otherwise denies any chest pain, nausea, vomiting, diarrhea, constipation or any urinary symptoms. 12/07/2019. Yesterday evening patient suddenly became very lethargic prior to that she was doing fine she was noted to be extremely hypothyroid to start on levothyroxine initially she was not given steroids as she had already received some and ICU. CBC CMP and ABG WNL except for mild hypokalemia, CT head was negative. After receiving a dose of hydrocortisone patient recovered back to her baseline. This morning resting in bed appears weak however wants to go home, denies any shortness of breath, chest pain, nausea, vomiting, diarrhea, constipation or any urinary symptoms. Patient does have history of thyroid cancer and status post colectomy however she has not been taking her l evothyroxine for a long time. Reason For Visit: RESPIRATORY FAILURE, HYPOTENSION, OPIOID OVERDOSE. Physical Exam Vital Signs: Temp Pulse Resp BP Pulse Ox 97.9 F 79 16 141/74 H 93 12/07/19 08:04 12/07/19 08:24 12/07/19 08:24 12/07/19 08:04 12/07/19 08:24 Intake & Output 12/06/19 12/07/19 12/08/19 06:59 06:59 06:59 Intake Total 280 626 Output Total 500 Balance 280 126 General appearance: PRESENT: no acute distress, obese, well-developed, well- nourished Respiratory exam: PRESENT: clear to auscultation rasta. ABSENT: rales, rhonchi, wheezes Cardiovascular exam: PRESENT: RRR. ABSENT: diastolic murmur, rubs, systolic murmur GI/Abdominal exam: PRESENT: normal bowel sounds, soft. ABSENT: distended, guarding, mass, organolmegaly, rebound, tenderness Neurological exam: PRESENT: alert, awake, oriented to person, oriented to place, oriented to time, oriented to situation, CN II-XII grossly intact. ABSENT: motor sensory deficit Psychiatric exam: PRESENT: flat affect Results Laboratory Results: 12/07/19 04:40 12/07/19 04:40 12/06/19 12/06/19 12/06/19 17:57 18:19 18:19 WBC 5.6 RBC 3.02 L Hgb 10.4 L Hct 30.0 L MCV 99 H MCH 34.4 H MCHC 34.7 RDW 15.2 H Plt Count 201 Seg Neutrophils % Not Reportable Carbonic Acid 1.22 HCO3/H2CO3 Ratio 24:1 ABG pH 7.48 H ABG pCO2 40.6 ABG pO2 90.9 ABG HCO3 29.6 H ABG O2 Saturation 97.4 ABG Base Excess 5.7 FiO2 50% Sodium 134.9 L Potassium 3.1 L Chloride 97 L Carbon Dioxide 29 Anion Gap 9 BUN 7 Creatinine 0.87 Est GFR ( Amer) > 60 Glucose 185 H Calcium 8.7 Phosphorus Magnesium 1.9 Total Bilirubin 0.5 AST 28 Alkaline Phosphatase 98 Total Protein 7.2 Albumin 3.9 12/06/19 12/07/19 12/07/19 18:19 04:40 04:40 WBC 6.8 RBC 2.99 L Hgb 10.3 L Hct 29.8 L MCV 100 H MCH 34.4 H MCHC 34.5 RDW 15.2 H Plt Count 203 Seg Neutrophils % Carbonic Acid HCO3/H2CO3 Ratio ABG pH ABG pCO2 ABG pO2 ABG HCO3 ABG O2 Saturation ABG Base Excess FiO2 Sodium 136.1 L Potassium 3.9 Chloride 97 L Carbon Dioxide 28 Anion Gap 11 BUN 8 Creatinine 0.74 Est GFR ( Amer) > 60 Glucose 152 H Calcium 8.8 Phosphorus 2.5 Magnesium 2.0 Total Bilirubin AST Alkaline Phosphatase Total Protein Albumin 12/01/19 20:15 Blood Blood Culture - Final NO GROWTH IN 5 DAYS 12/01/19 12/02/19 12/02/19 20:22 04:37 20:39 Troponin I 0.031 0.382 NT-Pro-B Natriuret Pep 3010 H 12/03/19 04:12 Troponin I 0.297 NT-Pro-B Natriuret Pep Impressions: Cervical Spine X-Ray 12/01/19 22:29 IMPRESSION: No acute displaced fracture is identified of the upper cervical spine. Cervical Spine CT 12/01/19 23:45 IMPRESSION: No acute intracranial process is identified. No acute bony injury is seen to the cervical spine. Chest X-Ray 12/06/19 00:00 IMPRESSION: Improving aeration in the left lung base. Head CT 12/06/19 00:00 IMPRESSION: No acute intracranial abnormality. Assessment and Plan - Diagnosis (1) Acute respiratory failure Qualifiers: Respiratory failure complication: hypoxia and hypercapnia Qualified Code(s): J96.01 - Acute respiratory failure with hypoxia; J96.02 - Acute respiratory failure with hypercapnia Is this a current diagnosis for this admission?: Yes Plan: Improving. SPO2 WNL on 2 L nasal cannula. Acute respiratory failure due to intentional opiate overdose, aspiration pneumonitis or pneumonia. Patient intubated on the scene initially transferred to ICU, extubated on 12/03/2019 and transferred to floor. Day 4 IV ceftriaxone. Incentive spirometry. Monitor vitals. Continue supplemental oxygen. Continue duo nebs (2) Hypothyroidism Is this a current diagnosis for this admission?: Yes Plan: History of thyroid cancer status post thyroidectomy. She has not been taking her levothyroxine for a long time. Was noted to have TSH 98, T4 0.07, T3 0.56. Random cortisol 19.3. Continue levothyroxine 1.6 MCG per KG to be registered in 4 weeks by PCP. Patient already received 2 doses of 100 mg hydrocortisone IV every 8 on admission. Received a dose of 100 mg of hydrocortisone 12/06/2019. (3) Gram-positive cocci bacteremia Is this a current diagnosis for this admission?: Yes Plan: Blood culture admission 06/29+ for MSSA and Aerococcus viridans. No sign of systemic infection. Repeat cultures no growth so far. Afebrile. WBC WNL. Received days of clindamycin. Currently on ceftriaxone day 3 for presumptive aspiration pneumonia/pneumonitis. (4) Suicidal ideation Is this a current diagnosis for this admission?: Yes Plan: Denies any suicidal homicidal ideation. As per psych evaluation patient is not a suicide risk at this point. Does not need to be IVCd. Please refer to psych note. As per admission note patient had intentional opiate overdose in a suicide note was found. Continue supportive measures. Outpatient psychiatry follow-up. (5) Opiate overdose Qualifiers: Encounter type: initial encounter Injury intent: undetermined intent Qualified Code(s): T40.604A - Poisoning by unspecified narcotics, undetermined, initial encounter Is this a current diagnosis for this admission?: Yes Plan: Alert and oriented x3, in no apparent distress. SPO2 WNL on 4 L nasal cannula. Continue supplemental oxygen. Monitor for respiratory depression. Monitor vitals. Monitor for withdrawal. (6) Respiratory failure requiring intubation Is this a current diagnosis for this admission?: Yes Plan: Plan as per #1. (7) SLE (systemic lupus erythematosus related syndrome) Is this a current diagnosis for this admission?: Yes Plan: Does not seem to be acutely exacerbated. Restart home meds. Outpatient rheumatology and PCP follow-up. (8) Pneumonia Qualifiers: Pneumonia type: aspiration pneumonia Is this a current diagnosis for this admission?: Yes Plan: Plan as per #1.
[2019-12-07] MEDS: NORMAL SALINE 1000 ML 1,000 ML IV PRN ×2 (11:39→21:52)
[2019-12-07] MEDS ORDERED: METHYLPREDNISOLONE INJ 40 MG/1 ML SDV IV SCH (14:00)
[2019-12-07] MEDS ORDERED: HYDROCORTISONE SOD SUCCINATE INJ/PF 100 MG/2 ML SDV IV SCH (14:00)
[2019-12-07] MEDS ORDERED: THIAMINE HCL 100 MG, FOLIC ACID 1 MG in NORMAL SALINE 250 ML IV ONE (15:26)
[2019-12-07 15:50] LABS: IRON(TIBC) 46.8 ug/dL (37-170)
[2019-12-07 16:06] LABS: ABSOLUTE RETICS # 0.034 10^6/uL (0.028-0.122); RETICULOCYTE COUNT (AUTO) 1.14 % (0.66-2.85)
[2019-12-07] MEDS ORDERED: CYANOCOBALAMIN (VITAMIN B-12) INJ 1000 MCG/1 ML VIAL IM ONE (16:30)
[2019-12-07] MEDS ORDERED: MULTIVITAMINS W-IRON TABLET, CHEWABLE PO ONE (16:30)
[2019-12-08] MEDS: LEVOTHYROXINE SODIUM 0.05 MG TABLET PO SCH (06:03)
[2019-12-08] MEDS: HEPARIN SOD (PORCINE) 5,000 UNIT/ML 1 ML VIAL SUBCUT SCH ×3 (06:04→21:33)
[2019-12-08] MEDS: IPRATROPIUM/ALBUTEROL 0.5-2.5 MG/3 ML AMPUL NEB SCH ×3 (08:08→20:37)
[2019-12-08] MEDS: DEXTROSE 5%-NORMAL SALINE 1,000 ML IV PRN ×2 (08:42→21:33)
[2019-12-08] MEDS: MULTIVITAMINS W-IRON TABLET, CHEWABLE PO SCH (09:47)
[2019-12-08] MEDS: LAMOTRIGINE 100 MG TABLET PO SCH (09:47)
[2019-12-08] MEDS: CYANOCOBALAMIN (VITAMIN B-12) INJ 1000 MCG/1 ML VIAL IM SCH (09:48)
[2019-12-08] MEDS: HYDROXYCHLOROQUINE SULFATE 200 MG TABLET PO SCH ×2 (09:48→17:00)
[2019-12-08] MEDS: FERROUS SULFATE 325 MG TABLET PO SCH (09:48)
[2019-12-08] MEDS: CEFTRIAXONE 1 GM/D5W RTU 1 GM/50 ML RTUPB IV SCH (09:48)
[2019-12-08] MEDS: CHOLECALCIFEROL (D3) 1,000 UNIT (25 MCG) TABLET PO SCH (12:49)
--- NOTE | 2019-12-08 13:42 | PDOC PROGRESS REPORT ---
Subjective Progress Note for:: 12/08/19 Subjective:: As per admission note patient is 49 year-old female with a history of SLE, chronic back pain and gastric bypass surgery. She was found on the floor at home by her family and was not breathing. Family initiated CPR and activated EMS. EMS found patient to have a thready pulse but was still not breathing. Patient did vomit a large amount and aspiration is suspected. Patient was intubated on arrival in the emergency department. She had multiple episodes of hypotension and a Levophed drip was started. Critical care was called to evaluate the patient given her acute respiratory failure hypotension. 12/04/2019. No acute events overnight. Comfortably sitting with no apparent distress. Cooperative with physical examination, alert and oriented x3, denies any fever, chills, nausea, vomiting, diarrhea, constipation or urinary symptoms. 12/05/2019. No acute events overnight. Patient comfortably resting in bed no apparent distress, would like to go home however patient is still dependent on supplemental O2 feeling too weak to get off the bed. Denies any fever, chills, nausea, vomiting, diarrhea, constipation or any urinary symptoms. Patient has been evaluated by psych department patient is not deemed to be suicidal and does not need to be IVCd at this point as per psychiatry evaluation. 12/06/2019. No acute events overnight. Patient comfortably sitting up in distress, patient still hypoxic on 6 L of oxygen on nasal cannula, complaining of feeling weak otherwise denies any chest pain, nausea, vomiting, diarrhea, constipation or any urinary symptoms. 12/07/2019. Yesterday evening patient suddenly became very lethargic prior to that she was doing fine she was noted to be extremely hypothyroid to start on levothyroxine initially she was not given steroids as she had already received some and ICU. CBC CMP and ABG WNL except for mild hypokalemia, CT head was negative. After receiving a dose of hydrocortisone patient recovered back to her baseline. This morning resting in bed appears weak however wants to go home, denies any shortness of breath, chest pain, nausea, vomiting, diarrhea, constipation or any urinary symptoms. Patient does have history of thyroid cancer and status post colectomy however she has not been taking her l evothyroxine for a long time. 12/08/2019. Much improved compared to yesterday. This morning patient resting in bed, alert and orientated x3, complaining of generalized weakness and low appetite and inquiring when she can go home, overnight she was noted to be hallucinating as per primary nurse and yesterday evening was noted to be very withdrawn lethargic and have nystagmus. She was also noted to be retaining urine, a Gordillo catheter was placed last night however patient would like to be removed because she wants to be able to ambulate. She denies any shortness of breath, chest pain, abdominal pain, nausea, vomiting, diarrhea, constipation or any urinary symptoms. Reason For Visit: RESPIRATORY FAILURE, HYPOTENSION, OPIOID OVERDOSE. Physical Exam Vital Signs: Temp Pulse Resp BP Pulse Ox 98.7 F 63 16 146/66 H 94 12/07/19 20:29 12/08/19 08:08 12/08/19 08:08 12/07/19 20:29 12/08/19 08:08 Intake & Output 12/07/19 12/08/19 12/09/19 06:59 06:59 06:59 Intake Total 626 1037 917 Output Total 500 2750 Balance 126 -1713 917 General appearance: PRESENT: obese Head exam: PRESENT: atraumatic, normocephalic Respiratory exam: PRESENT: clear to auscultation rasta. ABSENT: rales, rhonchi, w heezes Cardiovascular exam: PRESENT: RRR. ABSENT: diastolic murmur, rubs, systolic murmur Pulses: PRESENT: normal dorsalis pedis pul GI/Abdominal exam: PRESENT: normal bowel sounds, soft. ABSENT: distended, guarding, mass, organolmegaly, rebound, tenderness Neurological exam: PRESENT: alert, awake, oriented to person, oriented to place, oriented to time, oriented to situation, CN II-XII grossly intact. ABSENT: motor sensory deficit Psychiatric exam: PRESENT: depressed, flat affect Results Laboratory Results: 12/07/19 04:40 12/07/19 04:40 12/07/19 12/07/19 12/07/19 04:40 04:40 04:40 Retic Count (auto) 1.14 Iron 46.8 TIBC 293 % Saturation 16 Transferrin 220.18 Ferritin 242.00 H C-Reactive Protein Vitamin B12 267.0 Folate 5.30 12/07/19 04:40 Retic Count (auto) Iron TIBC % Saturation Transferrin Ferritin C-Reactive Protein 145.6 H Vitamin B12 Folate 12/01/19 12/02/19 12/02/19 20:22 04:37 20:39 Troponin I 0.031 0.382 NT-Pro-B Natriuret Pep 3010 H 12/03/19 04:12 Troponin I 0.297 NT-Pro-B Natriuret Pep Impressions: Cervical Spine X-Ray 12/01/19 22:29 IMPRESSION: No acute displaced fracture is identified of the upper cervical spine. Cervical Spine CT 12/01/19 23:45 IMPRESSION: No acute intracranial process is identified. No acute bony injury is seen to the cervical spine. Chest X-Ray 12/06/19 00:00 IMPRESSION: Improving aeration in the left lung base. Head CT 12/06/19 00:00 IMPRESSION: No acute intracranial abnormality. Assessment and Plan - Diagnosis (1) Acute respiratory failure Qualifiers: Respiratory failure complication: hypoxia and hypercapnia Qualified Code(s): J96.01 - Acute respiratory failure with hypoxia; J96.02 - Acute respiratory failure with hypercapnia Is this a current diagnosis for this admission?: Yes Plan: Improving. SPO2 WNL on 2 L nasal cannula. Acute respiratory failure due to intentional opiate overdose, aspiration pneumonitis or pneumonia. Patient intubated on the scene initially transferred to ICU, extubated on 12/03/2019 and transferred to floor. Day 5 IV ceftriaxone. Continue incentive spirometry, supplemental oxygen and duo nebs. (2) Physical deconditioning Is this a current diagnosis for this admission?: Yes Plan: Unfortunately patient has very complicated past medical history. 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 Patient also suffers from bipolar depression, has history of gastric bypass and alpha-1 antitrypsin deficiency. Patient not able to ambulate or get off the bed without maximal assistance and I believe is not safe for her to be discharged home yet, I have suggested for patient to be transferred to short-term SNF however she refuses and would like to go home instead. Patient physical deconditioning is most likely to multiple underlying comorbidities as well as nutritional status. Patient endorses low appetite and refuses most of her meals. Continue aggressive PT OT. Will start on appetite stimulant. Continue replacing B12 and other vitamins. Follow-up dietitian recommendations. Once patient is able to ambulate safely she could be discharged home with home health and home physical therapy. (3) SLE (systemic lupus erythematosus related syndrome) Is this a current diagnosis for this admission?: Yes Plan: Does not seem to be acutely exacerbated based on physical examination however patient noted to have visual hallucinations intermittently and was also noted to have some diagnosed on 12/07/2019. Not sure if these are psychiatric manifestation of systemic lupus erythematosus as there are no obvious sources of hallucination and nystagmus. CBC and CMP, CT head and ABG are WNL however patient noted to have low B12 and vitamin D level elevated CRP and sed rate. C3, C4, CH50, and ilno-[id number] DNA antibodies are pending. I have called [facility] to try to talk to obtain a customer facilities supervisor consult unfortunately none was available as it is a weekend. Patient will greatly benefit from a rheumatology consult or evaluation. Continue hydroxychloroquine and methotrexate. (4) Hypothyroidism Is this a current diagnosis for this admission?: Yes Plan: History of thyroid cancer status post thyroidectomy. She has not been taking her levothyroxine for a long time. Was noted to have TSH 98, T4 0.07, T3 0.56. Random cortisol 19.3. Continue levothyroxine 1.6 MCG per KG to be registered in 4 weeks by PCP. Patient already received 2 doses of 100 mg hydrocortisone IV every 8 on admission. Received two dose of 100 mg of hydrocortisone 12/06/2019 and 12/07/2019. (5) Gram-positive cocci bacteremia Is this a current diagnosis for this admission?: Yes Plan: Blood culture admission 06/29+ for MSSA and Aerococcus viridans. No sign of systemic infection. Repeat cultures no growth so far. Afebrile. WBC WNL. Received one days of clindamycin. Currently on ceftriaxone day 4 for presumptive aspiration pneumonia/pneumonitis. (6) Suicidal ideation Is this a current diagnosis for this admission?: Yes Plan: Denies any suicidal homicidal ideation. As per psych evaluation patient is not a suicide risk at this point. Does not need to be IVCd. Please refer to psych note. As per admission note patient had intentional opiate overdose in a suicide note was found. Continue supportive measures. Outpatient psychiatry follow-up. (7) Opiate overdose Qualifiers: Encounter type: initial encounter Injury intent: undetermined intent Qualified Code(s): T40.604A - Poisoning by unspecified narcotics, undetermined, initial encounter Is this a current diagnosis for this admission?: Yes Plan: Alert and oriented x3, in no apparent distress. SPO2 WNL on 4 L nasal cannula. Continue supplemental oxygen. Monitor for respiratory depression. Monitor vitals. Monitor for withdrawal. (8) Pneumonia Qualifiers: Pneumonia type: aspiration pneumonia Is this a current diagnosis for this admission?: Yes Plan: Plan as per #1. (9) B12 deficiency due to diet Is this a current diagnosis for this admission?: Yes Plan: Mostly due to dietary deficiency complicated by gastric bypass. Patient noted to have macrocytic anemia and low normal B12 level. Patient has history of gastric bypass and not sure if he adequately replaced this her vitamins. Pending methylmalonic acid level. Continue daily B12 and folic acid replacement. Daily multivitamins. Registered dietitian has been consulted. (10) Vitamin D deficiency Is this a current diagnosis for this admission?: Yes Plan: Most likely due to low p.o. intake complicated by history of gastric bypass. Continue daily vitamin D replacement. (11) Respiratory failure requiring intubation Is this a current diagnosis for this admission?: Yes Plan: Plan as per #1. (12) History of urinary retention Is this a current diagnosis for this admission?: Yes Plan: History of urinary retention likely complication of SLE. Unfortunately patient does not like to have Gordillo cath in place. Continue timed voiding and bladder scan and intermittent straight cath if necessary. Avoid meds with anticholinergic activity. Outpatient urology follow-up.
[2019-12-08] MEDS ORDERED: MEGESTROL ACETATE 20 MG TABLET PO ONE (15:15)
[2019-12-08] MEDS: METHYLPREDNISOLONE INJ 40 MG/1 ML SDV IV SCH (21:33)
[2019-12-09] MEDS: LEVOTHYROXINE SODIUM 0.05 MG TABLET PO SCH (05:07)
[2019-12-09] MEDS: HEPARIN SOD (PORCINE) 5,000 UNIT/ML 1 ML VIAL SUBCUT SCH ×3 (05:07→22:09)
[2019-12-09] MEDS: METHYLPREDNISOLONE INJ 40 MG/1 ML SDV IV SCH ×3 (05:07→22:09)
[2019-12-09] MEDS: IPRATROPIUM/ALBUTEROL 0.5-2.5 MG/3 ML AMPUL NEB SCH ×3 (08:26→20:22)
[2019-12-09] MEDS: HYDROXYCHLOROQUINE SULFATE 200 MG TABLET PO SCH ×2 (09:19→17:01)
[2019-12-09] MEDS: CHOLECALCIFEROL (D3) 1,000 UNIT (25 MCG) TABLET PO SCH (09:19)
[2019-12-09] MEDS: LAMOTRIGINE 100 MG TABLET PO SCH (09:19)
[2019-12-09] MEDS: MULTIVITAMINS W-IRON TABLET, CHEWABLE PO SCH (09:19)
[2019-12-09] MEDS: FERROUS SULFATE 325 MG TABLET PO SCH (09:19)
[2019-12-09] MEDS: MEGESTROL ACETATE 20 MG TABLET PO SCH (09:20)
[2019-12-09] MEDS: CYANOCOBALAMIN (VITAMIN B-12) INJ 1000 MCG/1 ML VIAL IM SCH (09:20)
[2019-12-09] MEDS: CEFTRIAXONE 1 GM/D5W RTU 1 GM/50 ML RTUPB IV SCH (09:20)
[2019-12-09] MEDS: DEXTROSE 5%-NORMAL SALINE 1,000 ML IV PRN ×2 (09:25→22:10)
[2019-12-09] MEDS: LIOTHYRONINE SODIUM 25 MCG TABLET PO SCH (17:01)
--- NOTE | 2019-12-09 17:10 | PDOC PROGRESS REPORT ---
Subjective Progress Note for:: 12/09/19 Subjective:: As per admission note patient is 49 year-old female with a history of SLE, chronic back pain and gastric bypass surgery. She was found on the floor at home by her family and was not breathing. Family initiated CPR and activated EMS. EMS found patient to have a thready pulse but was still not breathing. Patient did vomit a large amount and aspiration is suspected. Patient was intubated on arrival in the emergency department. She was rapidly extubated at family request as the patient had previously made clear that intubation/aggressive interventions were not in line with her wishes. Patient was seen on morning rounds. She was found sitting upright in bed, comfortably, on room air; she has not required any supplemental oxygen or assistance for the prior 24 hours. She is alert and oriented to self, [place], and year but with noted delay in responses with sluggish speech and movement. She reports that her sister is present and "creating a scene," notably, she has not had any visitors and earlier in the day she told nursing staff that she needed her shoes to go outside to speak with the police (per nursing, multiple hallucination/delusion events). She reports that she is feeling well and denies questions or concerns. ROS is limited r/t mental status; patient does appear to be comfortable and is not noted to be in any acute distress. Spoke with the patient's sister, Myla, by phone ([phone]). Myla reports that the patient has had several weeks to months of memory difficulty, slurred speech, stumbling/shuffling gait. She states that she researched thyroid psychosis online and found that many of the symptoms described are similar to what she is observed with her sister over the last several weeks. We discussed her current clinical status and plan, as well as, placement needs. Myla states that the patient's current needs exceed what can be provided at home; requests assistance in SNF placement (undecided short vs LTC at this time). Reason For Visit: RESPIRATORY FAILURE, HYPOTENSION, OPIOID OVERDOSE. Physical Exam Vital Signs: Temp Pulse Resp BP Pulse Ox 98.5 F 72 12 149/66 H 98 12/09/19 15:36 12/09/19 15:36 12/09/19 15:36 12/09/19 15:36 06/15/20 15:36 Intake & Output 12/08/19 12/09/19 12/10/19 06:59 06:59 06:59 Intake Total 1037 2157 999 Output Total 2750 3800 Balance -1713 -1643 999 Weight 81.6 kg 81.6 kg General appearance: PRESENT: no acute distress, disheveled, well-developed, well-nourished Head exam: PRESENT: atraumatic, normocephalic Eye exam: PRESENT: conjunctiva pink, EOMI, PERRLA. ABSENT: scleral icterus Mouth exam: PRESENT: moist, tongue midline Respiratory exam: PRESENT: clear to auscultation rasta, symmetrical, unlabored, other - room air. ABSENT: rales, rhonchi, wheezes Cardiovascular exam: PRESENT: RRR. ABSENT: diastolic murmur, rubs, systolic murmur Vascular exam: PRESENT: normal capillary refill Rectal exam: PRESENT: deferred Gentrourinary exam: PRESENT: indwelling catheter Extremities exam: PRESENT: full ROM. ABSENT: calf tenderness, clubbing, pedal edema Neurological exam: PRESENT: alert, awake, oriented to person, oriented to place, oriented to time, CN II-XII grossly intact, other - delayed responses; sluggish movements. ABSENT: motor sensory deficit Psychiatric exam: PRESENT: flat affect. ABSENT: homicidal ideation, suicidal ideation Skin exam: PRESENT: dry, intact, warm. ABSENT: cyanosis, rash Results Laboratory Results: 12/07/19 04:40 12/07/19 04:40 12/04/19 10:56 Blood Blood Culture - Final NO GROWTH IN 5 DAYS 12/04/19 10:40 Blood Blood Culture - Final NO GROWTH IN 5 DAYS 12/01/19 12/02/19 12/02/19 20:22 04:37 20:39 Troponin I 0.031 0.382 NT-Pro-B Natriuret Pep 3010 H 12/03/19 04:12 Troponin I 0.297 NT-Pro-B Natriuret Pep Impressions: Cervical Spine X-Ray 12/01/19 22:29 IMPRESSION: No acute displaced fracture is identified of the upper cervical spine. Cervical Spine CT 12/01/19 23:45 IMPRESSION: No acute intracranial process is identified. No acute bony injury is seen to the cervical spine. Chest X-Ray 12/06/19 00:00 IMPRESSION: Improving aeration in the left lung base. Head CT 12/06/19 00:00 IMPRESSION: No acute intracranial abnormality. Assessment and Plan - Diagnosis (1) Acute respiratory failure Qualifiers: Respiratory failure complication: hypoxia and hypercapnia Qualified Code(s): J96.01 - Acute respiratory failure with hypoxia; J96.02 - Acute respiratory failure with hypercapnia Is this a current diagnosis for this admission?: Yes Plan: Resolved. SPO2 WNL on Room Air >24 hrs Acute respiratory failure due to intentional opiate overdose, aspiration pneumonitis or pneumonia. Patient intubated on the scene initially transferred to ICU, extubated on 12/01/2019 and transferred to floor. Day 6 IV ceftriaxone. Continue incentive spirometry, supplemental oxygen and duo nebs. (2) Hypothyroidism Is this a current diagnosis for this admission?: Yes Plan: History of thyroid cancer status post thyroidectomy. She has not been taking her levothyroxine for a long time. Was noted to have TSH 98, T4 0.07, T3 0.56. Random cortisol 19.3. Continue levothyroxine 125 MCG daily; will plan to decrease dose slightly once Cytomel is onboard. Start Cytomel 25 mg daily; should see a more rapid improvement w/ addition of T3. Close endocrinology follow up. (3) Adrenal insufficiency Is this a current diagnosis for this admission?: Yes Plan: Strongly suggested by improved BP response with addition of IV hydrocortisone while in ICU Patient initially requires pressor support. Random cortisol 19.3. Continue IV solu-medrol Slow wean to p.o. prednisone; plan to d/c on prednisone with close endocrinology follow up. (4) Gram-positive cocci bacteremia Is this a current diagnosis for this admission?: Yes Plan: Blood culture admission 06/29+ for MSSA and Aerococcus viridans. No sign of systemic infection. Repeat cultures no growth so far. Afebrile. WBC WNL. Received one days of clindamycin. Currently on ceftriaxone day 6 for presumptive aspiration pneumonia/pneumonitis. (5) SLE (systemic lupus erythematosus related syndrome) Is this a current diagnosis for this admission?: Yes Plan: Does not seem to be acutely exacerbated based on physical examination however patient noted to have visual hallucinations intermittently and was also noted to have some diagnosed on 12/07/2019. Not sure if these are psychiatric manifestation of systemic lupus erythematosus as there are no obvious sources of hallucination and nystagmus. May also be related to profound hypothyroidism or BiPolar diagnosis. CBC and CMP, CT head and ABG are WNL however patient noted to have low B12 and vitamin D level elevated CRP and sed rate. C3, C4, CH50, and [id number] DNA antibodies are pending. Continue hydroxychloroquine and methotrexate. Outpatient rheumatology follow up. (6) B12 deficiency due to diet Is this a current diagnosis for this admission?: Yes Plan: Mostly due to dietary deficiency complicated by gastric bypass. Patient noted to have macrocytic anemia and low normal B12 level. Patient has history of gastric bypass and not sure if he adequately replaced this her vitamins. Pending methylmalonic acid level. Continue daily B12 and folic acid replacement. Daily multivitamins. Registered dietitian has been consulted. (7) History of urinary retention Is this a current diagnosis for this admission?: Yes Plan: History of urinary retention likely complication of SLE. Gordillo is discontinued. Continue timed voiding and bladder scan and intermittent straight cath if necessary. Avoid meds with anticholinergic activity. Outpatient urology follow-up. (8) Opiate overdose Qualifiers: Encounter type: initial encounter Injury intent: undetermined intent Qualified Code(s): T40.604A - Poisoning by unspecified narcotics, undetermined, initial encounter Is this a current diagnosis for this admission?: Yes Plan: Alert and oriented x3, in no apparent distress. SPO2 WNL on RA Monitor for respiratory depression. Monitor vitals. Monitor for withdrawal. (9) Physical deconditioning Is this a current diagnosis for this admission?: Yes Plan: Unfortunately patient has very complicated past medical history. As per family patient suffers from very resistant form of SLE has not responded to any medication and has been followed by cutting table operator as outpatient. Patient also suffers from bipolar depression, has history of gastric bypass and alpha-1 antitrypsin deficiency. Patient not able to ambulate or get off the bed without maximal assistance and I believe is not safe for her to be discharged home yet. Suggested for patient to be transferred to short-term SNF however she refuses and would like to go home instead. Did speak with patient's sister (patient lives w/ sister) today. Patient currently exceeds their capabilities; will require short term rehab. Continue aggressive PT OT. Continue appetite stimulant. Continue replacing B12 and other vitamins. Adjustment to thyroid medications today. Follow-up dietitian recommendations. (10) Vitamin D deficiency Is this a current diagnosis for this admission?: Yes Plan: Most likely due to low p.o. intake complicated by history of gastric bypass. Continue daily vitamin D replacement. (11) Pneumonia Qualifiers: Pneumonia type: aspiration pneumonia Is this a current diagnosis for this admission?: Yes Plan: Plan as per #1. (12) Respiratory failure requiring intubation Is this a current diagnosis for this admission?: Yes Plan: Plan as per #1. (13) Cardiopulmonary arrest with successful resuscitation Is this a current diagnosis for this admission?: Yes Plan: This was at home and begun by family. (+) pulse upon EMS arrival Intubated on scene; extubated on arrival to ICU (14) Suicidal ideation Is this a current diagnosis for this admission?: Yes Plan: Denies any suicidal homicidal ideation. As per psych evaluation patient is not a suicide risk at this point. Does not need to be IVCd. Please refer to psych note. As per admission note patient had intentional opiate overdose and a suicide note was found. Continue supportive measures. Outpatient psychiatry follow-up. - Plan Summary Summary: Case reviewed/Plan developed with Dr. Bartlett. - Time Time Spent with patient: 35 or more minutes Medications reviewed and adjusted accordingly: Yes Anticipated discharge: SNF
[2019-12-10] MEDS: LEVOTHYROXINE SODIUM 0.05 MG TABLET PO SCH (06:01)
[2019-12-10] MEDS: METHYLPREDNISOLONE INJ 40 MG/1 ML SDV IV SCH ×3 (06:02→21:45)
[2019-12-10] MEDS: HEPARIN SOD (PORCINE) 5,000 UNIT/ML 1 ML VIAL SUBCUT SCH ×3 (06:02→21:45)
[2019-12-10 06:12] LABS: HEMOGLOBIN 10.9 g/dL (12.0-15.5); MEAN CORPUSCULAR HEMOGLOBIN 33.9 pg (27.0-33.4); MEAN CORPUSCULAR VOLUME 100 fl (80-97); PLATELET COUNT 250 10^3/uL (150-450); RED BLOOD COUNT 3.21 10^6/uL (3.72-5.28); RED CELL DISTRIBUTION WIDTH 14.7 % (11.5-14.0); WHITE BLOOD COUNT 6.1 10^3/uL (4.0-10.5)
[2019-12-10 06:43] LABS: ANION GAP 10 (5-19); BLOOD UREA NITROGEN 5 mg/dL (7-20); CALCIUM 9.2 mg/dL (8.4-10.2); CARBON DIOXIDE 26 mmol/L (22-30); CHLORIDE 102 mmol/L (98-107); GLUCOSE 191 mg/dL (75-110); POTASSIUM 3.6 mmol/L (3.6-5.0)
[2019-12-10] MEDS: IPRATROPIUM/ALBUTEROL 0.5-2.5 MG/3 ML AMPUL NEB SCH ×3 (09:14→20:31)
[2019-12-10 09:42] LABS: COMPLEMENT C4 36 mg/dL (14-44)
[2019-12-10] MEDS: CEFTRIAXONE 1 GM/D5W RTU 1 GM/50 ML RTUPB IV SCH (09:54)
[2019-12-10] MEDS: MEGESTROL ACETATE 20 MG TABLET PO SCH (09:55)
[2019-12-10] MEDS: CHOLECALCIFEROL (D3) 1,000 UNIT (25 MCG) TABLET PO SCH (09:55)
[2019-12-10] MEDS: LIOTHYRONINE SODIUM 25 MCG TABLET PO SCH (09:55)
[2019-12-10] MEDS: MULTIVITAMINS W-IRON TABLET, CHEWABLE PO SCH (09:55)
[2019-12-10] MEDS: CYANOCOBALAMIN (VITAMIN B-12) INJ 1000 MCG/1 ML VIAL IM SCH (09:56)
[2019-12-10] MEDS: HYDROXYCHLOROQUINE SULFATE 200 MG TABLET PO SCH ×2 (09:56→17:33)
[2019-12-10] MEDS: FERROUS SULFATE 325 MG TABLET PO SCH (09:56)
--- NOTE | 2019-12-10 14:13 | PDOC PROGRESS REPORT ---
Subjective Progress Note for:: 12/10/19 Subjective:: As per admission note patient is 49 year-old female with a history of SLE, chronic back pain and gastric bypass surgery. She was found on the floor at home by her family and was not breathing. Family initiated CPR and activated EMS. EMS found patient to have a thready pulse but was still not breathing. Patient did vomit a large amount and aspiration is suspected. Patient was intubated on arrival in the emergency department. She was rapidly extubated at family request as the patient had previously made clear that intubation/aggressive interventions were not in line with her wishes. Patient was seen on morning rounds. She was found sitting upright in bed, comfortably, on room air; she has not required any supplemental oxygen or assistance for >48 hours. She is A&Ox4 today. She had a normal discussion with me about recommendations to transfer to SNF for rehab (she was agreeable) and then unexpectedly began talking about Dr. Pedroza being upset with her and her sister for "breaking the rules" and asks for me to take away her sister's cigarettes. She then indicates that "the man" is in the room with us and she wants the cigarettes (not present) hidden before he sees them. Per nursing, patient has had several similar episodes today. ROS is limited r/t mental status; patient does appear to be comfortable and is not noted to be in any acute distress. Spoke with the patient's sister, Myla, by phone ([phone]) yesterday. Myla reports that the patient has had several weeks to months of memory difficulty, slurred speech, stumbling/shuffling gait. She states that she researched thyroid psychosis online and found that many of the symptoms described are similar to what she is observed with her sister over the last several weeks. We discussed her current clinical status and plan, as well as, placement needs. Myla states that the patient's current needs exceed what can be provided at home; requests assistance in SNF placement (undecided short vs LTC at this time). Reason For Visit: RESPIRATORY FAILURE, HYPOTENSION, OPIOID OVERDOSE. Physical Exam Vital Signs: Temp Pulse Resp BP Pulse Ox 98.7 F 70 16 150/71 H 98 12/10/19 11:52 12/10/19 11:52 12/10/19 11:52 12/10/19 11:52 12/10/19 11:52 Intake & Output 12/09/19 12/10/19 12/11/19 06:59 06:59 06:59 Intake Total 2157 3120 50 Output Total 3800 2450 850 Balance -1643 670 -800 Weight 81.6 kg 81.6 kg General appearance: PRESENT: no acute distress, cooperative, well-developed, well-nourished Head exam: PRESENT: atraumatic, normocephalic Eye exam: PRESENT: conjunctiva pink, EOMI, PERRLA. ABSENT: scleral icterus Ear exam: PRESENT: normal external ear exam Mouth exam: PRESENT: moist, tongue midline Respiratory exam: PRESENT: clear to auscultation rasta, symmetrical, unlabored. ABSENT: rales, rhonchi, wheezes Cardiovascular exam: PRESENT: RRR, +S1, +S2. ABSENT: diastolic murmur, rubs, systolic murmur Pulses: PRESENT: normal dorsalis pedis pul Vascular exam: PRESENT: normal capillary refill Gentrourinary exam: ABSENT: indwelling catheter Extremities exam: PRESENT: full ROM. ABSENT: calf tenderness, clubbing, pedal edema Neurological exam: PRESENT: alert, awake, oriented to person, oriented to place, oriented to time, oriented to situation, CN II-XII grossly intact, other. ABSENT: motor sensory deficit Psychiatric exam: PRESENT: appropriate affect, normal mood. ABSENT: homicidal ideation, suicidal ideation Focused psych exam: PRESENT: delusional - visual hallucinations, paranoid Skin exam: PRESENT: dry, intact, warm. ABSENT: cyanosis, rash Results Laboratory Results: 12/10/19 04:57 12/10/19 04:57 12/10/19 12/10/19 04:57 04:57 WBC 6.1 RBC 3.21 L Hgb 10.9 L Hct 32.0 L MCV 100 H MCH 33.9 H MCHC 34.0 RDW 14.7 H Plt Count 250 Sodium 137.7 Potassium 3.6 Chloride 102 Carbon Dioxide 26 Anion Gap 10 BUN 5 L Creatinine 0.88 Est GFR ( Amer) > 60 Glucose 191 H Calcium 9.2 12/04/19 10:56 Blood Blood Culture - Final NO GROWTH IN 5 DAYS 12/04/19 10:40 Blood Blood Culture - Final NO GROWTH IN 5 DAYS 06/01/1212/02/19 12/02/19 20:22 04:37 20:39 Troponin I 0.031 0.382 NT-Pro-B Natriuret Pep 3010 H 12/03/19 04:12 Troponin I 0.297 NT-Pro-B Natriuret Pep Impressions: Cervical Spine X-Ray 12/01/19 22:29 IMPRESSION: No acute displaced fracture is identified of the upper cervical spine. Cervical Spine CT 12/01/19 23:45 IMPRESSION: No acute intracranial process is identified. No acute bony injury is seen to the cervical spine. Chest X-Ray 12/06/19 00:00 IMPRESSION: Improving aeration in the left lung base. Head CT 12/06/19 00:00 IMPRESSION: No acute intracranial abnormality. Assessment and Plan - Diagnosis (1) Hypothyroidism Qualifiers: Hypothyroidism type: acquired Qualified Code(s): E03.9 - Hypothyroidism, unspecified Is this a current diagnosis for this admission?: Yes Plan: History of thyroid cancer status post thyroidectomy. She has not been taking her levothyroxine for a long time. Was noted to have TSH 98, T4 0.07, T3 0.56. Random cortisol 19.3. Continue levothyroxine 100 MCG daily; decrease dose now that Cytomel is onboard. Continue Cytomel 25 mg daily; should see a more rapid improvement w/ addition of T3. Close endocrinology follow up. (2) Adrenal insufficiency Is this a current diagnosis for this admission?: Yes Plan: Strongly suggested by improved BP response with addition of IV hydrocortisone while in ICU Patient initially requires pressor support. Random cortisol 19.3. Continue IV solu-medrol; dose decreased today Slow wean to p.o. prednisone; plan to d/c on prednisone with close endocrinology follow up. (3) Acute respiratory failure Qualifiers: Respiratory failure complication: hypoxia and hypercapnia Qualified Code(s): J96.01 - Acute respiratory failure with hypoxia; J96.02 - Acute respiratory failure with hypercapnia Is this a current diagnosis for this admission?: Yes Plan: Resolved. SPO2 WNL on Room Air >48 hrs Acute respiratory failure due to intentional opiate overdose, aspiration pneumonitis or pneumonia. Patient intubated on the scene initially transferred to ICU, extubated on 12/01/2019 and transferred to floor. Received Rocephin x 7 days Continue incentive spirometry, supplemental oxygen and duo nebs. (4) Gram-positive cocci bacteremia Is this a current diagnosis for this admission?: Yes Plan: Blood culture admission 06/29+ for MSSA and Aerococcus viridans. No sign of systemic infection. Repeat cultures no growth so far. Afebrile. WBC WNL. Received one day of clindamycin. Received 7 days of Rocephin for presumptive aspiration pneumonia/pneumonitis. (5) SLE (systemic lupus erythematosus related syndrome) Is this a current diagnosis for this admission?: Yes Plan: Does not seem to be acutely exacerbated based on physical examination however patient noted to have visual hallucinations intermittently and was also noted to have some diagnosed on 12/07/2019. Not sure if these are psychiatric manifestation of systemic lupus erythematosus as there are no obvious sources of hallucination and nystagmus. May also be related to profound hypothyroidism or BiPolar diagnosis. CBC and CMP, CT head and ABG are WNL however patient noted to have low B12 and vitamin D level elevated CRP and sed rate. C3, C4, CH50, and ogjy-bgypry-jcnpglxt DNA antibodies are pending. Continue hydroxychloroquine and methotrexate. Outpatient rheumatology follow up. (6) B12 deficiency due to diet Is this a current diagnosis for this admission?: Yes Plan: Mostly due to dietary deficiency complicated by gastric bypass. Patient noted to have macrocytic anemia and low normal B12 level. Patient has history of gastric bypass and not sure if he adequately replaced this her vitamins. Pending methylmalonic acid level. Continue daily B12 and folic acid replacement. Daily multivitamins. Registered dietitian has been consulted. (7) History of urinary retention Is this a current diagnosis for this admission?: Yes Plan: History of urinary retention likely complication of SLE. Gordillo is discontinued. Continue timed voiding and bladder scan and intermittent straight cath if necessary. Avoid meds with anticholinergic activity. Outpatient urology follow-up. (8) Opiate overdose Qualifiers: Encounter type: initial encounter Injury intent: undetermined intent Qualified Code(s): T40.604A - Poisoning by unspecified narcotics, undetermined, initial encounter Is this a current diagnosis for this admission?: Yes Plan: Alert and oriented x3, in no apparent distress. SPO2 WNL on RA Monitor for respiratory depression. Monitor vitals. Monitor for withdrawal. (9) Physical deconditioning Is this a current diagnosis for this admission?: Yes Plan: Unfortunately patient has very complicated past medical history. As per family patient suffers from very resistant form of SLE has not responded to any medication and has been followed by global sales manager as outpatient. Patient also suffers from bipolar depression, has history of gastric bypass and alpha-1 antitrypsin deficiency. Patient not able to ambulate or get off the bed without maximal assistance and I believe is not safe for her to be discharged home yet. Spoke with patient's sister (patient lives w/ sister) yesterday. Patient currently exceeds their capabilities; will require short term rehab. Continue aggressive PT OT. Continue appetite stimulant. Continue replacing B12 and other vitamins. Adjustment to thyroid medications yesterday Follow-up dietitian recommendations. (10) Vitamin D deficiency Is this a current diagnosis for this admission?: Yes Plan: Most likely due to low p.o. intake complicated by history of gastric bypass. Continue daily vitamin D replacement. (11) Pneumonia Qualifiers: Pneumonia type: aspiration pneumonia Is this a current diagnosis for this admission?: Yes Plan: Plan as per #1. (12) Respiratory failure requiring intubation Is this a current diagnosis for this admission?: Yes Plan: Plan as per #1. (13) Cardiopulmonary arrest with successful resuscitation Is this a current diagnosis for this admission?: Yes Plan: This was at home and begun by family. (+) pulse upon EMS arrival Intubated on scene; extubated on arrival to ICU (14) Suicidal ideation Is this a current diagnosis for this admission?: Yes Plan: Denies any suicidal homicidal ideation. As per psych evaluation patient is not a suicide risk at this point. Does not need to be IVCd. Please refer to psych note. As per admission note patient had intentional opiate overdose and a suicide note was found. Continue supportive measures. Outpatient psychiatry follow-up. - Time Time Spent with patient: 35 or more minutes Medications reviewed and adjusted accordingly: Yes Anticipated discharge: SNF
[2019-12-10] MEDS ORDERED: DIVALPROEX SODIUM 250 MG TAB.SR.24H PO ONE (15:30)
[2019-12-10] MEDS: DEXTROSE 5%-NORMAL SALINE 1,000 ML IV PRN (16:22)
[2019-12-10] MEDS: DIVALPROEX SODIUM 250 MG TAB.SR.24H PO SCH (17:32)
[2019-12-11] MEDS ORDERED: LEVOTHYROXINE SODIUM 0.05 MG TABLET PO SCH (06:00)
[2019-12-11] MEDS: LEVOTHYROXINE SODIUM 0.1 MG TABLET PO SCH (06:13)
[2019-12-11] MEDS: METHYLPREDNISOLONE INJ 40 MG/1 ML SDV IV SCH ×3 (06:14→22:17)
[2019-12-11] MEDS: HEPARIN SOD (PORCINE) 5,000 UNIT/ML 1 ML VIAL SUBCUT SCH ×3 (06:14→22:16)
[2019-12-11] MEDS: DEXTROSE 5%-NORMAL SALINE 1,000 ML IV PRN (06:15)
[2019-12-11] MEDS ORDERED: DEXTROSE 5%-NORMAL SALINE 1,000 ML IV PRN (08:28)
[2019-12-11] MEDS: IPRATROPIUM/ALBUTEROL 0.5-2.5 MG/3 ML AMPUL NEB SCH ×3 (09:02→19:55)
[2019-12-11] MEDS: MEGESTROL ACETATE 20 MG TABLET PO SCH (09:35)
[2019-12-11] MEDS: LIOTHYRONINE SODIUM 25 MCG TABLET PO SCH (09:35)
[2019-12-11] MEDS: CYANOCOBALAMIN (VITAMIN B-12) INJ 1000 MCG/1 ML VIAL IM SCH (09:36)
[2019-12-11] MEDS: HYDROXYCHLOROQUINE SULFATE 200 MG TABLET PO SCH ×2 (09:36→17:51)
[2019-12-11] MEDS: CHOLECALCIFEROL (D3) 1,000 UNIT (25 MCG) TABLET PO SCH (09:37)
[2019-12-11] MEDS: MULTIVITAMINS W-IRON TABLET, CHEWABLE PO SCH (09:37)
[2019-12-11] MEDS: FERROUS SULFATE 325 MG TABLET PO SCH (09:37)
[2019-12-11] MEDS: DIVALPROEX SODIUM 250 MG TAB.SR.24H PO SCH ×2 (09:38→17:50)
[2019-12-11 10:16] LABS: FREE T3 2.07 pg/mL (2.77-5.27); FREE T4 (FREE THYROXINE) 0.42 ng/dL (0.78-2.19)
[2019-12-11 10:29] LABS: THYROID STIMULATING HORMONE 84.3 uIU/mL (0.47-4.68)
--- NOTE | 2019-12-11 14:01 | RADIOLOGY REPORT (SQ) ---
EXAM DESCRIPTION: MRI HEAD WITHOUT IMAGES COMPLETED DATE/TIME: 12/11/2019 1:11 pm REASON FOR STUDY: persistent AMS (Recent Arrest, SLE, hypothyroid) COMPARISON: None. TECHNIQUE: Multiplanar imaging includes non-contrasted T1, T2, FLAIR, and diffusion with ADC map seq uences. Images stored on PACS. LIMITATIONS: None. FINDINGS: ANATOMY: No anomalies. Normal vascular flow voids. Pituitary fossa normal. CSF SPACES: Normal in size and contour. No hemorrhage. CEREBRUM: Sulci and gyri normal in size and contour. Normal white matter signal on FLAIR imaging. No evidence of hemorrhage, mass, or extraaxial fluid collection. POSTERIOR FOSSA: No signal alteration. No hemorrhage. No edema, masses or mass effect. Internal ioana tory canals, cerebello-pontine angles, mastoids normal. DIFFUSION IMAGING: Negative for acute or sub-acute infarction. ORBITS: No masses. Globes normal. PARANASAL SINUSES: No fluid levels. Mucosa normal. OTHER: No other significant finding. IMPRESSION: NORMAL MRI OF THE BRAIN WITHOUT INTRAVENOUS GADOLINIUM CONTRAST. EVIDENCE OF ACUTE STROKE: NO. TECHNICAL DOCUMENTATION: JOB ID: [id number] 2010 [employer]- All Rights Reserved Reading location - IP/workstation name: [email or web address]
--- NOTE | 2019-12-11 17:13 | PDOC PROGRESS REPORT ---
Subjective Progress Note for:: 12/11/19 Subjective:: As per admission note patient is 49 year-old female with a history of SLE, chronic back pain and gastric bypass surgery. She was found on the floor at home by her family and was not breathing. Family initiated CPR and activated EMS. EMS found patient to have a thready pulse but was still not breathing. Patient did vomit a large amount and aspiration is suspected. Patient was intubated on arrival in the emergency department. She was rapidly extubated at family request as the patient had previously made clear that intubation/aggressive interventions were not in line with her wishes. Patient was seen on morning rounds. She was found sitting in the recliner, comfortably, on room air; she has not required any supplemental oxygen or assistance for >72 hours. She is A&Ox4 today. She had a normal and detailed discussion with me about her prior treatment for lupus and hypothyroidism. We discussed her overdose and stressors leading up to this. She talked with me about her sister who is terminally ill. She is able to name the medications that she is currently receiving. She was also able to talk with me about the indications for the MRI. She is noted to have increased eye contact, coordination, and motor activity (now talking and gesturing with her hands). She was noted to be ambulating in the hallway with physical therapy prior to my arrival. Overall, her mentation is significantly improved. At the end of our discussion he asked her what happened last night as the nurses had said that she had been upset with something she saw. The patient then began to describe, in detail, seeing multiple rabbits, mice, and cats in her room and in the hallway. She tells me that she was not imagining things and does not understand why the nurses are telling her that those were not present. She states that she wishes that she had at her phone so that she could have taken a picture to prove this to me. She states that there are not any animals present right now, however, she believes that they are hiding behind the bed because occasionally she can hear them, "and see the little cat ears above the bed frame." She reports fatigue but otherwise denies all symptoms of fever, chest pain, dyspnea, cough, abdominal pain, nausea vomiting diarrhea. She has no other questions or concerns at this time. Reason For Visit: RESPIRATORY FAILURE, HYPOTENSION, OPIOID OVERDOSE. Physical Exam Vital Signs: Temp Pulse Resp BP Pulse Ox 98.7 F 75 16 142/83 H 100 12/11/19 15:29 12/11/19 15:29 12/11/19 15:29 12/11/19 15:29 12/11/19 15:29 Intake & Output 12/10/19 12/11/19 12/12/19 06:59 06:59 06:59 Intake Total 3120 2050 1140 Output Total 2450 1900 700 Balance 670 150 440 Weight 81.6 kg 82 kg General appearance: PRESENT: no acute distress, cooperative, well-developed, well-nourished Head exam: PRESENT: atraumatic, normocephalic Eye exam: PRESENT: conjunctiva pink, EOMI, PERRLA. ABSENT: scleral icterus Mouth exam: PRESENT: moist, tongue midline Respiratory exam: PRESENT: clear to auscultation rasta, symmetrical, unlabored. ABSENT: rales, rhonchi, wheezes Cardiovascular exam: PRESENT: RRR, +S1, +S2. ABSENT: diastolic murmur, rubs, systolic murmur Pulses: PRESENT: normal dorsalis pedis pul Vascular exam: PRESENT: normal capillary refill Extremities exam: PRESENT: full ROM. ABSENT: calf tenderness, clubbing, pedal edema Neurological exam: PRESENT: alert, awake, oriented to person, oriented to place, oriented to time, oriented to situation, CN II-XII grossly intact, other - Significantly improved mentation today; however, persistent delusion expressed a t the end of our conversation. ABSENT: motor sensory deficit Psychiatric exam: PRESENT: appropriate affect, normal mood. ABSENT: homicidal ideation, suicidal ideation Focused psych exam: PRESENT: delusional Skin exam: PRESENT: dry, intact, warm. ABSENT: cyanosis, rash Results Laboratory Results: 12/10/19 04:57 12/10/19 04:57 12/11/19 12/11/19 09:18 09:18 C-Reactive Protein 17.1 H TSH 84.30 H Free T4 0.42 L Free T3 pg/mL 2.07 L 12/01/19 12/02/19 12/02/19 20:22 04:37 20:39 Troponin I 0.031 0.382 NT-Pro-B Natriuret Pep 3010 H 12/03/19 04:12 Troponin I 0.297 NT-Pro-B Natriuret Pep Impressions: Cervical Spine X-Ray 12/01/19 22:29 IMPRESSION: No acute displaced fracture is identified of the upper cervical spine. Cervical Spine CT 12/01/19 23:45 IMPRESSION: No acute intracranial process is identified. No acute bony injury is seen to the cervical spine. Chest X-Ray 12/06/19 00:00 IMPRESSION: Improving aeration in the left lung base. Head CT 12/06/19 00:00 IMPRESSION: No acute intracranial abnormality. Head MRI 12/11/19 00:00 IMPRESSION: NORMAL MRI OF THE BRAIN WITHOUT INTRAVENOUS GADOLINIUM CONTRAST. EVIDENCE OF ACUTE STROKE: NO. Assessment and Plan - Diagnosis (1) Hypothyroidism Qualifiers: Hypothyroidism type: acquired Qualified Code(s): E03.9 - Hypothyroidism, unspecified Is this a current diagnosis for this admission?: Yes Plan: History of thyroid cancer status post thyroidectomy. She has not been taking her levothyroxine for a long time. Was noted to have TSH 98, T4 0.07, T3 0.56. Random cortisol 19.3. Improving TSH 84.3, T4 0.42, T3 2.07 Continue levothyroxine 100 MCG daily Continue Cytomel 25 mg daily; patient appears to have improved mentation/motor function w/ addition of T3. Close endocrinology follow up. (2) Adrenal insufficiency Is this a current diagnosis for this admission?: Yes Plan: Strongly suggested by improved BP response with addition of IV hydrocortisone while in ICU Patient initially requires pressor support. Random cortisol 19.3. Continue IV solu-medrol; continue to wean Slow wean to p.o. prednisone; plan to d/c on prednisone with close endocrinology follow up. (3) Acute respiratory failure Qualifiers: Respiratory failure complication: hypoxia and hypercapnia Qualified Code(s): J96.01 - Acute respiratory failure with hypoxia; J96.02 - Acute respiratory failure with hypercapnia Is this a current diagnosis for this admission?: Yes Plan: Resolved. SPO2 WNL on Room Air >48 hrs Acute respiratory failure due to intentional opiate overdose, aspiration pneumonitis or pneumonia. Patient intubated on the scene initially transferred to ICU, extubated on 12/01/2019 and transferred to floor. Received Rocephin x 7 days Continue incentive spirometry, supplemental oxygen and duo nebs. (4) Gram-positive cocci bacteremia Is this a current diagnosis for this admission?: Yes Plan: Blood culture admission 06/29+ for MSSA and Aerococcus viridans. No sign of systemic infection. Repeat cultures no growth so far. Afebrile. WBC WNL. Received one day of clindamycin. Received 7 days of Rocephin for presumptive aspiration pneumonia/pneumonitis. (5) SLE (systemic lupus erythematosus related syndrome) Is this a current diagnosis for this admission?: Yes Plan: Does not seem to be acutely exacerbated based on physical examination however patient noted to have visual hallucinations intermittently and was also noted to have some diagnosed on 12/07/2019. Not sure if these are psychiatric manifestation of systemic lupus erythematosus as there are no obvious sources of hallucination and nystagmus. May also be related to profound hypothyroidism or BiPolar diagnosis. CBC and CMP, CT head and ABG are WNL however patient noted to have low B12 and vitamin D level elevated CRP and sed rate. C3, C4 and [id number] DNA antibodies are normal Copper pending SED and CRP are trending down Continue hydroxychloroquine and methotrexate. Outpatient rheumatology follow up. (6) B12 deficiency due to diet Is this a current diagnosis for this admission?: Yes Plan: Mostly due to dietary deficiency complicated by gastric bypass. Patient noted to have macrocytic anemia and low normal B12 level. Patient has history of gastric bypass and not sure if he adequately replaced this her vitamins. Pending methylmalonic acid level. Received daily B12 x 3 doses. Will require continued monitoring and monthly outpatient injections Continue folic acid replacement. Daily multivitamins. Registered dietitian has been consulted. (7) History of urinary retention Is this a current diagnosis for this admission?: Yes Plan: History of urinary retention likely complication of SLE. Gordillo is discontinued. Continue timed voiding and bladder scan and intermittent straight cath if necessary. Avoid meds with anticholinergic activity. Outpatient urology follow-up. (8) Opiate overdose Qualifiers: Encounter type: initial encounter Injury intent: undetermined intent Qualified Code(s): T40.604A - Poisoning by unspecified narcotics, undetermined, initial encounter Is this a current diagnosis for this admission?: Yes Plan: Alert and oriented x3, in no apparent distress. SPO2 WNL on RA Monitor for respiratory depression. Monitor vitals. Monitor for withdrawal. (9) Physical deconditioning Is this a current diagnosis for this admission?: Yes Plan: Improved mobility with physical therapy observed today Unfortunately patient has very complicated past medical history. As per family patient suffers from very resistant form of SLE has not responded to any medication and has been followed by director child abuse therapy as outpatient. Patient also suffers from bipolar depression, has history of gastric bypass and alpha-1 antitrypsin deficiency. Patient not able to ambulate or get off the bed without maximal assistance and I believe is not safe for her to be discharged home yet. Spoke with patient's sister (patient lives w/ sister) yesterday. Patient currently exceeds their capabilities; will require short term rehab. Continue aggressive PT OT. Continue appetite stimulant. Continue replacing B12 and other vitamins. Adjustment to thyroid medications Follow-up dietitian recommendations. (10) Vitamin D deficiency Is this a current diagnosis for this admission?: Yes Plan: Most likely due to low p.o. intake complicated by history of gastric bypass. Continue daily vitamin D replacement. (11) Pneumonia Qualifiers: Pneumonia type: aspiration pneumonia Is this a current diagnosis for this admission?: Yes Plan: Plan as per #1. (12) Respiratory failure requiring intubation Is this a current diagnosis for this admission?: Yes Plan: Plan as per #1. (13) Cardiopulmonary arrest with successful resuscitation Is this a current diagnosis for this admission?: Yes Plan: This was at home and begun by family. (+) pulse upon EMS arrival Intubated on scene; extubated on arrival to ICU (14) Suicidal ideation Is this a current diagnosis for this admission?: Yes Plan: Denies any suicidal homicidal ideation. As per psych evaluation patient is not a suicide risk at this point. Does not need to be IVCd. Please refer to psych note. As per admission note patient had intentional opiate overdose and a suicide note was found. Continue supportive measures. Outpatient psychiatry follow-up. (15) Encephalopathy Is this a current diagnosis for this admission?: Yes Plan: Unclear etiology; likely multifactorial secondary to profound hypothyroidism, SLE, and potentially anoxic brain injury with underlying bipolar disorder. MRI head is benign. Thyroid panel is improved, though not yet within normal ranges. Sed and CRP are trending down. Continue medications as above. Monitor for evidence of infectious process. Supportive care. - Time Time Spent with patient: 35 or more minutes Medications reviewed and adjusted accordingly: Yes Anticipated discharge: Home with Homehealth - vs SNF Within: within 72 hours
[2019-12-12] MEDS: HEPARIN SOD (PORCINE) 5,000 UNIT/ML 1 ML VIAL SUBCUT SCH ×3 (05:27→23:09)
[2019-12-12] MEDS: LEVOTHYROXINE SODIUM 0.1 MG TABLET PO SCH (05:28)
[2019-12-12] MEDS: METHYLPREDNISOLONE INJ 40 MG/1 ML SDV IV SCH ×2 (05:28→14:30)
[2019-12-12] MEDS: IPRATROPIUM/ALBUTEROL 0.5-2.5 MG/3 ML AMPUL NEB SCH (08:57)
[2019-12-12] MEDS: CHOLECALCIFEROL (D3) 1,000 UNIT (25 MCG) TABLET PO SCH (09:33)
[2019-12-12] MEDS: MULTIVITAMINS W-IRON TABLET, CHEWABLE PO SCH (09:33)
[2019-12-12] MEDS: FERROUS SULFATE 325 MG TABLET PO SCH (09:33)
[2019-12-12] MEDS: HYDROXYCHLOROQUINE SULFATE 200 MG TABLET PO SCH ×2 (09:33→17:42)
[2019-12-12] MEDS: DIVALPROEX SODIUM 250 MG TAB.SR.24H PO SCH ×2 (09:33→17:42)
[2019-12-12] MEDS: LIOTHYRONINE SODIUM 25 MCG TABLET PO SCH (09:34)
[2019-12-12] MEDS: MEGESTROL ACETATE 20 MG TABLET PO SCH (09:34)
[2019-12-12] MEDS ORDERED: MAGNESIUM HYDROXIDE SUSP 30 ML UDCUP PO PRN (10:14)
[2019-12-12] MEDS: POLYETHYLENE GLYCOL 3350 POWDER 17 GM/1 PACKET PO SCH (12:53)
[2019-12-12] MEDS: TAMSULOSIN HCL 0.4 MG CAP.SR.24H PO SCH (17:42)
--- NOTE | 2019-12-12 18:00 | PDOC PROGRESS REPORT ---
Subjective Progress Note for:: 12/12/19 Subjective:: As per admission note patient is 49 year-old female with a history of SLE, chronic back pain and gastric bypass surgery. She was found on the floor at home by her family and was not breathing. Family initiated CPR and activated EMS. EMS found patient to have a thready pulse but was still not breathing. Patient did vomit a large amount and aspiration is suspected. Patient was intubated on arrival in the emergency department. She was rapidly extubated at family request as the patient had previously made clear that intubation/aggressive interventions were not in line with her wishes. Patient was seen on morning rounds. She was found sitting in the recliner, comfortably, on room air. She is A&Ox4 today. Her mentation continues to improve; dramatic progress made as compared to earlier this week. Today she tells me that the animal she hallucinated yesterday was likely due to her being tired. Per nursing, she has had no further visual or auditory hallucinations. We discussed disposition. Patient is agreeable to going to rehab. However, she is hopeful to be discharged directly to home with home health services. I believe that this may be a reasonable option given another few days to recover; she is encouraged to discuss this with her sister. She denies fever, chest pain, dyspnea, cough, abdominal pain, nausea vomiting diarrhea. She has no other questions or concerns at this time. Reason For Visit: RESPIRATORY FAILURE, HYPOTENSION, OPIOID OVERDOSE. Physical Exam Vital Signs: Temp Pulse Resp BP Pulse Ox 98.9 F 77 16 130/61 H 100 12/12/19 15:16 12/12/19 15:16 12/12/19 15:16 12/12/19 15:16 12/12/19 15:16 Intake & Output 12/11/19 12/12/19 12/13/19 06:59 06:59 06:59 Intake Total 2049 2019 469 Output Total 1900 2600 450 Balance 150 -580 19 Weight 82 kg 82 kg General appearance: PRESENT: no acute distress, cooperative, well-developed, well-nourished Head exam: PRESENT: atraumatic, normocephalic Eye exam: PRESENT: conjunctiva pink, EOMI, PERRLA. ABSENT: scleral icterus Mouth exam: PRESENT: moist, tongue midline Respiratory exam: PRESENT: clear to auscultation rasta, symmetrical, unlabored. ABSENT: rales, rhonchi, wheezes Cardiovascular exam: PRESENT: RRR, +S1, +S2. ABSENT: diastolic murmur, rubs, systolic murmur Vascular exam: PRESENT: normal capillary refill Extremities exam: PRESENT: full ROM. ABSENT: calf tenderness, clubbing, pedal edema Musculoskeletal exam: PRESENT: ambulatory - With front wheel walker Neurological exam: PRESENT: alert, awake, oriented to person, oriented to place, oriented to time, oriented to situation, CN II-XII grossly intact. ABSENT: motor sensory deficit Psychiatric exam: PRESENT: appropriate affect, normal mood. ABSENT: homicidal ideation, suicidal ideation Skin exam: PRESENT: dry, intact, warm. ABSENT: cyanosis, rash Results Laboratory Results: 12/10/19 04:57 12/10/19 04:57 12/07/19 16:25 Blood Blood Culture - Final NO GROWTH IN 5 DAYS 12/07/19 15:55 Blood Blood Culture - Final NO GROWTH IN 5 DAYS 12/01/19 12/02/19 12/02/19 20:22 04:37 20:39 Troponin I 0.031 0.382 NT-Pro-B Natriuret Pep 3010 H 12/03/19 04:12 Troponin I 0.297 NT-Pro-B Natriuret Pep Impressions: Cervical Spine X-Ray 12/01/19 22:29 IMPRESSION: No acute displaced fracture is identified of the upper cervical spine. Cervical Spine CT 12/01/19 23:45 IMPRESSION: No acute intracranial process is identified. No acute bony injury is seen to the cervical spine. Chest X-Ray 12/06/19 00:00 IMPRESSION: Improving aeration in the left lung base. Head CT 12/06/19 00:00 IMPRESSION: No acute intracranial abnormality. Head MRI 12/11/19 00:00 IMPRESSION: NORMAL MRI OF THE BRAIN WITHOUT INTRAVENOUS GADOLINIUM CONTRAST. EVIDENCE OF ACUTE STROKE: NO. Assessment and Plan - Diagnosis (1) Hypothyroidism Qualifiers: Hypothyroidism type: acquired Qualified Code(s): E03.9 - Hypothyroidism, unspecified Is this a current diagnosis for this admission?: Yes Plan: History of thyroid cancer status post thyroidectomy. She has not been taking her levothyroxine for a long time. Was noted to have TSH 98, T4 0.07, T3 0.56. Random cortisol 19.3. Improving TSH 84.3, T4 0.42, T3 2.07 Continue levothyroxine; decrease dose again to 75 mcg daily. Plan for this to be her discharge dose. Will require close laboratory follow up. Continue Cytomel 25 mg daily; patient appears to have improved mentation/motor function w/ addition of T3. Close endocrinology follow up. (2) Adrenal insufficiency Is this a current diagnosis for this admission?: Yes Plan: Strongly suggested by improved BP response with addition of IV hydrocortisone while in ICU Patient initially requires pressor support. Random cortisol 19.3. Continue IV solu-medrol; continue to wean Slow wean to p.o. prednisone; plan to d/c on prednisone with close endocrinology follow up. (3) Acute respiratory failure Qualifiers: Respiratory failure complication: hypoxia and hypercapnia Qualified Code(s): J96.01 - Acute respiratory failure with hypoxia; J96.02 - Acute respiratory failure with hypercapnia Is this a current diagnosis for this admission?: Yes Plan: Resolved. SPO2 WNL on Room Air >48 hrs Acute respiratory failure due to intentional opiate overdose, aspiration pneumonitis or pneumonia. Patient intubated on the scene initially transferred to ICU, extubated on 12/01/2019 and transferred to floor. Received Rocephin x 7 days Continue incentive spirometry, supplemental oxygen and duo nebs. (4) Gram-positive cocci bacteremia Is this a current diagnosis for this admission?: Yes Plan: Blood culture admission 06/29+ for MSSA and Aerococcus viridans. No sign of systemic infection. Repeat cultures no growth so far. Afebrile. WBC WNL. Received one day of clindamycin. Received 7 days of Rocephin for presumptive aspiration pneumonia/pneumonitis. (5) SLE (systemic lupus erythematosus related syndrome) Is this a current diagnosis for this admission?: Yes Plan: Does not seem to be acutely exacerbated based on physical examination however patient noted to have visual hallucinations intermittently and was also noted to have some diagnosed on 12/07/2019. Not sure if these are psychiatric manifestation of systemic lupus erythematosus as there are no obvious sources of hallucination and nystagmus. May also be related to profound hypothyroidism or BiPolar diagnosis. CBC and CMP, CT head and ABG are WNL however patient noted to have low B12 and vitamin D level elevated CRP and sed rate. C3, C4 and htvq-[id number]-ftvcqxqu DNA antibodies are normal Copper pending SED and CRP are trending down Continue hydroxychloroquine and methotrexate. Outpatient rheumatology follow up. (6) B12 deficiency due to diet Is this a current diagnosis for this admission?: Yes Plan: Mostly due to dietary deficiency complicated by gastric bypass. Patient noted to have macrocytic anemia and low normal B12 level. Patient has history of gastric bypass and not sure if he adequately replaced this her vitamins. Pending methylmalonic acid level. Received daily B12 x 3 doses. Will require continued monitoring and monthly outpatient injections Continue folic acid replacement. Daily multivitamins. Registered dietitian has been consulted. (7) History of urinary retention Is this a current diagnosis for this admission?: Yes Plan: History of urinary retention likely complication of SLE. Gordillo is discontinued. Continue timed voiding and bladder scan and intermittent straight cath if necessary. Avoid meds with anticholinergic activity. Outpatient urology follow-up. (8) Opiate overdose Qualifiers: Encounter type: initial encounter Injury intent: undetermined intent Qualified Code(s): T40.604A - Poisoning by unspecified narcotics, undetermined, initial encounter Is this a current diagnosis for this admission?: Yes Plan: Alert and oriented x3, in no apparent distress. SPO2 WNL on RA Monitor for respiratory depression. Monitor vitals. Monitor for withdrawal. (9) Physical deconditioning Is this a current diagnosis for this admission?: Yes Plan: Improved mobility with physical therapy observed today Unfortunately patient has very complicated past medical history. As per family patient suffers from very resistant form of SLE has not responded to any medication and has been followed by floriculture teacher as outpatient. Patient also suffers from bipolar depression, has history of gastric bypass and alpha-1 antitrypsin deficiency. Patient not able to ambulate or get off the bed without maximal assistance and I believe is not safe for her to be discharged home yet. Spoke with patient's sister (patient lives w/ sister) yesterday. Patient curren tly exceeds their capabilities; will require short term rehab. Continue aggressive PT OT. Continue appetite stimulant. Continue replacing B12 and other vitamins. Adjustment to thyroid medications Follow-up dietitian recommendations. (10) Vitamin D deficiency Is this a current diagnosis for this admission?: Yes Plan: Most likely due to low p.o. intake complicated by history of gastric bypass. Continue daily vitamin D replacement. (11) Pneumonia Qualifiers: Pneumonia type: aspiration pneumonia Is this a current diagnosis for this admission?: Yes Plan: Plan as per #1. (12) Respiratory failure requiring intubation Is this a current diagnosis for this admission?: Yes Plan: Plan as per #1. (13) Cardiopulmonary arrest with successful resuscitation Is this a current diagnosis for this admission?: Yes Plan: This was at home and begun by family. (+) pulse upon EMS arrival Intubated on scene; extubated on arrival to ICU (14) Suicidal ideation Is this a current diagnosis for this admission?: Yes Plan: Denies any suicidal homicidal ideation. As per psych evaluation patient is not a suicide risk at this point. Does not need to be IVCd. Please refer to psych note. As per admission note patient had intentional opiate overdose and a suicide note was found. Continue supportive measures. Outpatient psychiatry follow-up. (15) Encephalopathy Is this a current diagnosis for this admission?: Yes Plan: Significantly improved; likely multifactorial secondary to profound hypothyroidism, SLE, and potentially anoxic brain injury with underlying bipolar disorder. MRI head is benign. Thyroid panel is improved, though not yet within normal ranges. Sed and CRP are trending down. Continue medications as above. Monitor for evidence of infectious process. Supportive care. - Time Time Spent with patient: 35 or more minutes Medications reviewed and adjusted accordingly: Yes Anticipated discharge: Home with Homehealth Within: within 72 hours
[2019-12-12] MEDS: TRAZODONE HCL 50 MG TABLET PO SCH (23:10)
[2019-12-13] MEDS ORDERED: LEVOTHYROXINE SODIUM 0.1 MG TABLET PO SCH (06:00)
[2019-12-13] MEDS: HEPARIN SOD (PORCINE) 5,000 UNIT/ML 1 ML VIAL SUBCUT SCH ×3 (06:06→22:05)
[2019-12-13] MEDS: LEVOTHYROXINE SODIUM 0.075 MG TABLET PO SCH (06:07)
[2019-12-13] MEDS ORDERED: METHYLPREDNISOLONE INJ 40 MG/1 ML SDV IV SCH (10:00)
[2019-12-13] MEDS: MULTIVITAMINS W-IRON TABLET, CHEWABLE PO SCH (10:57)
[2019-12-13] MEDS: DIVALPROEX SODIUM 250 MG TAB.SR.24H PO SCH ×2 (10:57→18:08)
[2019-12-13] MEDS: CHOLECALCIFEROL (D3) 1,000 UNIT (25 MCG) TABLET PO SCH (10:58)
[2019-12-13] MEDS: FERROUS SULFATE 325 MG TABLET PO SCH (10:58)
[2019-12-13] MEDS: LIOTHYRONINE SODIUM 25 MCG TABLET PO SCH (11:01)
[2019-12-13] MEDS: HYDROXYCHLOROQUINE SULFATE 200 MG TABLET PO SCH ×2 (11:01→18:09)
[2019-12-13] MEDS: POLYETHYLENE GLYCOL 3350 POWDER 17 GM/1 PACKET PO SCH (11:01)
[2019-12-13] MEDS: MEGESTROL ACETATE 20 MG TABLET PO SCH (11:01)
[2019-12-13 11:37] LABS: METHYLMALONIC ACID TEST 142 nmol/L (0-378)
--- NOTE | 2019-12-13 13:35 | PDOC PROGRESS REPORT ---
Subjective Progress Note for:: 12/13/19 Subjective:: As per admission note patient is 49 year-old female with a history of SLE, chronic back pain and gastric bypass surgery. She was found on the floor at home by her family and was not breathing. Family initiated CPR and activated EMS. EMS found patient to have a thready pulse but was still not breathing. Patient did vomit a large amount and aspiration is suspected. Patient was intubated on arrival in the emergency department. She was rapidly extubated at family request as the patient had previously made clear that intubation/aggressive interventions were not in line with her wishes. Patient was seen on morning rounds. She was found resting in bed, comfortably, on room air. She is A&Ox4. We discussed her disposition. Patient reports that the home she was living and is no longer available; family was renting and her landlord is not renewing their lease. She had intended to return to her sister's house with home health services. Per patient, her sister is hesitant and would like for us to place her in short-term rehab. I expressed my opinion that the patient was likely over qualified for rehab (independent of ADLs, walking 50 feet with front wheel walker). I recommended that she speak with her sister further and to discuss, frankly, with discharge team her homeless status. She denies fever, chest pain, dyspnea, cough, abdominal pain, nausea vomiting diarrhea. She has no other questions or concerns at this time. Reason For Visit: RESPIRATORY FAILURE, HYPOTENSION, OPIOID OVERDOSE. Physical Exam Vital Signs: Temp Pulse Resp BP Pulse Ox 98.9 F 83 16 123/55 L 94 12/13/19 07:19 12/13/19 07:19 12/13/19 07:19 12/13/19 07:19 12/13/19 07:19 Intake & Output 12/12/19 12/13/19 12/14/19 06:59 06:59 06:59 Intake Total 20199 Output Total 2600 1850 Balance -580 -421 Weight 82 kg 81.4 kg General appearance: PRESENT: no acute distress, well-developed, well-nourished Head exam: PRESENT: atraumatic, normocephalic Eye exam: PRESENT: conjunctiva pink, EOMI, PERRLA. ABSENT: scleral icterus Mouth exam: PRESENT: moist, tongue midline Respiratory exam: PRESENT: clear to auscultation rasta. ABSENT: rales, rhonchi, wheezes Cardiovascular exam: PRESENT: RRR. ABSENT: diastolic murmur, rubs, systolic murmur Vascular exam: PRESENT: normal capillary refill Extremities exam: PRESENT: full ROM. ABSENT: calf tenderness, clubbing, pedal edema Musculoskeletal exam: PRESENT: ambulatory - w/ FWW Neurological exam: PRESENT: alert, awake, oriented to person, oriented to place, oriented to time, oriented to situation, CN II-XII grossly intact. ABSENT: motor sensory deficit Psychiatric exam: PRESENT: appropriate affect, normal mood. ABSENT: homicidal ideation, suicidal ideation Skin exam: PRESENT: dry, intact, warm. ABSENT: cyanosis, rash Results Laboratory Results: 12/10/19 04:57 12/10/19 04:57 12/07/19 16:25 Blood Blood Culture - Final NO GROWTH IN 5 DAYS 12/07/19 15:55 Blood Blood Culture - Final NO GROWTH IN 5 DAYS 12/01/19 12/02/19 12/02/19 20:22 04:37 20:39 Troponin I 0.031 0.382 NT-Pro-B Natriuret Pep 3010 H 12/03/19 04:12 Troponin I 0.297 NT-Pro-B Natriuret Pep Impressions: Cervical Spine X-Ray 12/01/19 22:29 IMPRESSION: No acute displaced fracture is identified of the upper cervical spine. Cervical Spine CT 12/01/19 23:45 IMPRESSION: No acute intracranial process is identified. No acute bony injury is seen to the cervical spine. Chest X-Ray 12/06/19 00:00 IMPRESSION: Improving aeration in the left lung base. Head CT 12/06/19 00:00 IMPRESSION: No acute intracranial abnormality. Head MRI 12/11/19 00:00 IMPRESSION: NORMAL MRI OF THE BRAIN WITHOUT INTRAVENOUS GADOLINIUM CONTRAST. EVIDENCE OF ACUTE STROKE: NO. Assessment and Plan - Diagnosis (1) Hypothyroidism Qualifiers: Hypothyroidism type: acquired Qualified Code(s): E03.9 - Hypothyroidism, unspecified Is this a current diagnosis for this admission?: Yes Plan: History of thyroid cancer status post thyroidectomy. She has not been taking her levothyroxine for a long time. Was noted to have TSH 98, T4 0.07, T3 0.56. Random cortisol 19.3. Improving TSH 84.3, T4 0.42, T3 2.07 Continue levothyroxine at 75 mcg daily. Plan for this to be her discharge dose. Will require close laboratory follow up. Continue Cytomel 25 mg daily; patient appears to have improved mentation/motor function w/ addition of T3. Close endocrinology follow up. (2) Adrenal insufficiency Is this a current diagnosis for this admission?: Yes Plan: Strongly suggested by improved BP response with addition of IV hydrocortisone while in ICU Patient initially requires pressor support. Random cortisol 19.3. Transition to p.o. prednisone today Plan to d/c on prednisone with close endocrinology follow up. (3) Acute respiratory failure Qualifiers: Respiratory failure complication: hypoxia and hypercapnia Qualified Code(s): J96.01 - Acute respiratory failure with hypoxia; J96.02 - Acute respiratory failure with hypercapnia Is this a current diagnosis for this admission?: Yes Plan: Resolved. SPO2 WNL on Room Air >48 hrs Acute respiratory failure due to intentional opiate overdose, aspiration pneumonitis or pneumonia. Patient intubated on the scene initially transferred to ICU, extubated on 12/01/2019 and transferred to floor. Received Rocephin x 7 days Continue incentive spirometry and ambulation (4) Gram-positive cocci bacteremia Is this a current diagnosis for this admission?: Yes Plan: Resolved. Blood culture admission 06/29+ for MSSA and Aerococcus viridans. No sign of systemic infection. Repeat cultures no growth so far. Afebrile. WBC WNL. Received one day of clindamycin. Received 7 days of Rocephin for presumptive aspiration pneumonia/pneumonitis. (5) SLE (systemic lupus erythematosus related syndrome) Is this a current diagnosis for this admission?: Yes Plan: Does not seem to be acutely exacerbated based on physical examination however patient noted to have visual hallucinations intermittently and was also noted to have some diagnosed on 12/07/2019. Not sure if these are psychiatric manifestation of systemic lupus erythematosus as there are no obvious sources of hallucination and nystagmus. May also be r elated to profound hypothyroidism or BiPolar diagnosis. CBC and CMP, CT head and ABG are WNL however patient noted to have low B12 and vitamin D level elevated CRP and sed rate. C3, C4 and dpff-[id number] DNA antibodies are normal Copper pending SED and CRP are trending down Continue hydroxychloroquine and methotrexate. Outpatient rheumatology follow up. (6) B12 deficiency due to diet Is this a current diagnosis for this admission?: Yes Plan: Mostly due to dietary deficiency complicated by gastric bypass. Patient noted to have macrocytic anemia and low normal B12 level. Patient has history of gastric bypass and not sure if he adequately replaced this her vitamins. Pending methylmalonic acid level. Received daily B12 x 3 doses. Will require continued monitoring and monthly outpatient injections Continue folic acid replacement. Daily multivitamins. Registered dietitian has been consulted. (7) History of urinary retention Is this a current diagnosis for this admission?: Yes Plan: History of urinary retention likely complication of SLE. Gordillo is discontinued. Continue timed voiding and bladder scan and intermittent straight cath if neces wm. Avoid meds with anticholinergic activity. Outpatient urology follow-up. (8) Opiate overdose Qualifiers: Encounter type: initial encounter Injury intent: undetermined intent Qualified Code(s): T40.604A - Poisoning by unspecified narcotics, undetermined, initial encounter Is this a current diagnosis for this admission?: Yes Plan: Resolved. Mental Health has cleared patient. (9) Physical deconditioning Is this a current diagnosis for this admission?: Yes Plan: Improved mobility with physical therapy observed; ~50 feet with FWW and contact guard. Unfortunately patient has very complicated past medical history. As per family patient suffers from very resistant form of SLE has not responded to any medication and has been followed by bankruptcy legal assistant as outpatient. Patient also suffers from bipolar depression, has history of gastric bypass and alpha-1 antitrypsin deficiency. Continue aggressive PT OT. Continue appetite stimulant. Continue replacing B12 and other vitamins. Adjustment to thyroid medications Follow-up dietitian recommendations. (10) Vitamin D deficiency Is this a current diagnosis for this admission?: Yes Plan: Most likely due to low p.o. intake complicated by history of gastric bypass. Continue daily vitamin D replacement. (11) Pneumonia Qualifiers: Pneumonia type: aspiration pneumonia Is this a current diagnosis for this admission?: Yes Plan: Resolved. (12) Respiratory failure requiring intubation Is this a current diagnosis for this admission?: Yes Plan: Resolved. (13) Cardiopulmonary arrest with successful resuscitation Is this a current diagnosis for this admission?: Yes Plan: This was at home and begun by family. (+) pulse upon EMS arrival Intubated on scene; extubated on arrival to ICU (14) Suicidal ideation Is this a current diagnosis for this admission?: Yes Plan: Denies any currentsuicidal homicidal ideation. As per psych evaluation patient is not a suicide risk at this point. Does not need to be IVCd. Please refer to psych note. As per admission note patient had intentional opiate overdose and a suicide note was found; patient confirms this was an intentional attempt. Continue supportive measures. Outpatient psychiatry follow-up. (15) Encephalopathy Is this a current diagnosis for this admission?: Yes Plan: Appears to have resolved; likely multifactorial secondary to profound hypothyroidism, SLE, and potentially anoxic brain injury with underlying bipolar disorder. MRI head is benign. Thyroid panel is improved, though not yet within normal ranges. Sed and CRP are trending down. Continue medications as above. Monitor for evidence of infectious process. Have asked the mental health team to reevaluate the patient with regard to capacity. Believe the patient is demonstrating capacity, higher level thinking, future planning, and insight as to what led to her suicide attempt. She did recently have some visual and auditory hallucinations, however, these have abated; >48 hrs since last occurrence. Capacity screening will assist with placement needs/disposition. Supportive care. - Time Time Spent with patient: 35 or more minutes Medications reviewed and adjusted accordingly: Yes Anticipated discharge: Home with Homehealth Within: within 72 hours
[2019-12-13] MEDS: PREDNISONE 20 MG TABLET PO SCH (15:26)
[2019-12-13] MEDS: TAMSULOSIN HCL 0.4 MG CAP.SR.24H PO SCH (18:08)
--- NOTE | 2019-12-13 18:23 | PSYCHOLOGICAL NOTE ---
Psych Note - Psych Note Date seen by psych provider: 12/13/19 Time seen by psych provider: 15:45 - [id number] Psych Note: Presenting Problem: Patient is a 49 year old female who is admitted to hospitalist services. She was seen by [facility]al Health 12/05/2019 after overdose (Lamictal, Ambien), intubated and extubated. Patient was remorseful regarding overdose and provided stress triggers of 23 year old daughter moved out with her boyfriend, of her dog and impending loss of younger sister to Cancer since she has now gone into Hospice. Medications were adjusted (Added Depakote 250MG BID as only psychiatric medication) and she was cleared. Her outpatient medication provider is Dr. Velazquez at [facility] she admitted to not taking her Lamictal as prescribed for awhile, her therapist is Jessica Olvera at [facility] and she planned on living with sister and nephews at discharge. A psychiatric consult was ordered today to address hallucinations (hospitalist noted had been absent for the last 24 hours) and capacity. Hospitalist noted she felt patient had capacity but family had concerns. Patient recalled her initial Behavioral Health evaluation with Dr. Alarcon. She stated she felt "good." She identified she was diagnosed with Bipolar back in 2005. She stated she had been stable for so long that much of her family didn't even recall her mental health breaks back in the early when she was first diagnosed. She stated she felt the Depakote worked better than the Lamictal, but admitted "I had stopped all my medications even medical which was not the best idea." She denied seeing people or hearing things. She did not appear to be responding to internal stimuli given her ability to carry on linear dialogue conversation and be engaged in evaluation. When confronted about telling her sister there were people in her room and hallway and the nurses were in on it she acted as though she did not remember it and commented "I was told they were giving me Ativan at night I remember telling my sister that." She stated she thought she saw a mouse in the sink but otherwise nothing. Patient identified stress triggers over the past 3 years: started when of 28 years left her 3 years ago to live in [place] to take care of his parents, then her daughter moved out 3 weeks ago after they had an argument, she lost the horse she was tending to because her arthritis wouldn't allow for her to take care of him anymore and her Cockapoo had to be put down the week before last. Patient stated "I just want to live in a geriatric community (she described it as a square with multiple little apartments) where older ladies have Geraniums or other galindo in the window sill and I can have my dog (Bailey)." She commented "but that is 55 and over and I'm 49." Patient stated "my older sister is not sure she can take me in, she thinks it may be too hard." She noted she was caregiver to her younger sister with Cancer until mid April when the discussion of hospice came up. She discussed and processed how difficult it is for her to not be in the caregiver role and what does that mean for her (patient) now. Encouraged her to focus on herself and the things she would like to do to occupy her time. She noted her therapist Jessica is in [facility] and she would need to reconnect with her as she was very helpful during her sister's transition to hospice. 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 She was able to state her medical issues that she is treated for: Rheumatoid Arthritis, Lupus, Diabetes, and Bipolar. Patient was alert and oriented to self, person, place, time and situation. Mood was euthymic with congruent affect. She denied current SI/HI and had previously admitted to the overdose attempt in a previous evaluation. Patient did not appear to be responding to internal stimuli as evidenced by fair eye contact, answering questions appropriately when addressed, being engaged and ability to carry on dialogue conversation. Thought processes were linear and organized. Conversational speech was within normal limits for rate, tone and prosody. Intellectual abilities are estimated to be average. Insight, judgment and impulse control were fair as evidenced by being engaged and processing how her life will be different now that she is not a caregiver. Clinical Presentation: Family Concern for Capacity Continued Hallucinations Diagnosis: History of Bipolar Disorder Impression/Plan: Patient is cleared from acute psychiatric issues. She does not appear to lack capacity based on screening question responses (accurate) and interaction during evaluation which was appropriate. She denied SI/HI and no observed psychosis as evidenced by fair eye contact, being engaged in evaluation, answering questions appropriately when addressed and ability to carry on linear dialogue conversation. Consulted with Dr. Alarcon regarding the management and care of patient. Hospitalist made aware of recommendations.
[2019-12-13] MEDS: TRAZODONE HCL 50 MG TABLET PO SCH (22:05)
[2019-12-14] MEDS: HEPARIN SOD (PORCINE) 5,000 UNIT/ML 1 ML VIAL SUBCUT SCH ×3 (05:33→21:33)
[2019-12-14] MEDS: LEVOTHYROXINE SODIUM 0.075 MG TABLET PO SCH (05:34)
[2019-12-14] MEDS: CHOLECALCIFEROL (D3) 1,000 UNIT (25 MCG) TABLET PO SCH (10:53)
[2019-12-14] MEDS: DIVALPROEX SODIUM 250 MG TAB.SR.24H PO SCH ×2 (10:54→18:02)
[2019-12-14] MEDS: PREDNISONE 20 MG TABLET PO SCH (10:54)
[2019-12-14] MEDS: FERROUS SULFATE 325 MG TABLET PO SCH (10:55)
[2019-12-14] MEDS: POLYETHYLENE GLYCOL 3350 POWDER 17 GM/1 PACKET PO SCH (10:56)
[2019-12-14] MEDS: LIOTHYRONINE SODIUM 25 MCG TABLET PO SCH (10:59)
[2019-12-14] MEDS: HYDROXYCHLOROQUINE SULFATE 200 MG TABLET PO SCH ×2 (10:59→18:01)
[2019-12-14] MEDS: MEGESTROL ACETATE 20 MG TABLET PO SCH (10:59)
[2019-12-14] MEDS: MULTIVITAMINS W-IRON TABLET, CHEWABLE PO SCH (11:03)
--- NOTE | 2019-12-14 11:47 | PDOC PROGRESS REPORT ---
Subjective Progress Note for:: 12/14/19 Subjective:: As per admission note patient is 49 year-old female with a history of SLE, chronic back pain and gastric bypass surgery. She was found on the floor at home by her family and was not breathing. Family initiated CPR and activated EMS. EMS found patient to have a thready pulse but was still not breathing. Patient did vomit a large amount and aspiration is suspected. Patient was intubated on arrival in the emergency department. She was rapidly extubated at family request as the patient had previously made clear that intubation/aggressive interventions were not in line with her wishes. Patient was seen on morning rounds. She was found resting in bed, comfortably, on room air. She is A&Ox4. She states she is feeling well today. She is frustrated that she is not yet ready for discharge. When asked about possible hallucinations as reported by nursing overnight, patient states that the nurses misunderstood; reports that she woke from a dream and was briefly disoriented while trying to get up to the bathroom; "You know how sometimes you wake up and don't know where you are? I thought I was with my niece to go to a concert. And then I realized I was here. And this morning I remembered that all the concerts have been cancelled because of COVID." She denies fever, chest pain, dyspnea, cough, abdominal pain, nausea vomiting diarrhea. She has no other questions or concerns at this time. Hopeful that her sister, Myla, can visit (we are attempting to gain approval) so that her sister can see how well she is doing; would like to discharge to stay with Myla. Reason For Visit: RESPIRATORY FAILURE, HYPOTENSION, OPIOID OVERDOSE. Physical Exam Vital Signs: Temp Pulse Resp BP Pulse Ox 98.3 F 79 16 112/54 L 99 12/14/19 00:00 12/14/19 00:00 12/14/19 00:00 12/14/19 00:00 12/14/19 00:00 Intake & Output 12/13/19 12/14/19 12/15/19 06:59 06:59 06:59 Intake Total 1429 600 Output Total 1850 Balance -421 600 Weight 81.4 kg 81.4 kg General appearance: PRESENT: no acute distress, cooperative, well-developed, well-nourished Head exam: PRESENT: atraumatic, normocephalic Eye exam: PRESENT: conjunctiva pink, EOMI, PERRLA. ABSENT: scleral icterus Mouth exam: PRESENT: moist, tongue midline Respiratory exam: PRESENT: clear to auscultation rasta, symmetrical, unlabored. ABSENT: rales, rhonchi, wheezes Cardiovascular exam: PRESENT: RRR. ABSENT: diastolic murmur, rubs, systolic murmur Vascular exam: PRESENT: normal capillary refill Extremities exam: PRESENT: full ROM. ABSENT: calf tenderness, clubbing, pedal edema Neurological exam: PRESENT: alert, awake, oriented to person, oriented to place, oriented to time, oriented to situation, CN II-XII grossly intact, other - likely continued confusion at night. ABSENT: motor sensory deficit Psychiatric exam: PRESENT: appropriate affect, normal mood. ABSENT: homicidal ideation, suicidal ideation Skin exam: PRESENT: dry, intact, warm. ABSENT: cyanosis, rash Results Laboratory Results: 12/10/19 04:57 12/10/19 04:57 12/01/19 12/02/19 12/02/19 20:22 04:37 20:39 Troponin I 0.031 0.382 NT-Pro-B Natriuret Pep 3010 H 12/03/19 04:12 Troponin I 0.297 NT-Pro-B Natriuret Pep Impressions: Cervical Spine X-Ray 12/01/19 22:29 IMPRESSION: No acute displaced fracture is identified of the upper cervical spine. Cervical Spine CT 12/01/19 23:45 IMPRESSION: No acute intracranial process is identified. No acute bony injury is seen to the cervical spine. Chest X-Ray 12/06/19 00:00 IMPRESSION: Improving aeration in the left lung base. Head CT 12/06/19 00:00 IMPRESSION: No acute intracranial abnormality. Head MRI 12/11/19 00:00 IMPRESSION: NORMAL MRI OF THE BRAIN WITHOUT INTRAVENOUS GADOLINIUM CONTRAST. EVIDENCE OF ACUTE STROKE: NO. Assessment and Plan - Diagnosis (1) Hypothyroidism Qualifiers: Hypothyroidism type: acquired Qualified Code(s): E03.9 - Hypothyroidism, unspecified Is this a current diagnosis for this admission?: Yes Plan: History of thyroid cancer status post thyroidectomy. She has not been taking her levothyroxine for a long time. Was noted to have TSH 98, T4 0.07, T3 0.56. Random cortisol 19.3. Improving TSH 84.3, T4 0.42, T3 2.07 Plan to recheck thyroid panel on Monday Continue levothyroxine at 75 mcg daily. Plan for this to be her discharge dose. Will require close laboratory follow up. Continue Cytomel 25 mg daily; patient appears to have improved mentation/motor function w/ addition of T3. Close endocrinology follow up. (2) Adrenal insufficiency Is this a current diagnosis for this admission?: Yes Plan: Strongly suggested by improved BP response with addition of IV hydrocortisone w hile in ICU Patient initially requires pressor support. Random cortisol 19.3. Have transitioned to p.o. prednisone; continue slow wean as blood pressure allows. Possible d/c on prednisone with close endocrinology follow up. (3) SLE (systemic lupus erythematosus related syndrome) Is this a current diagnosis for this admission?: Yes Plan: Does not seem to be acutely exacerbated based on physical examination however patient noted to have visual hallucinations intermittently and was also noted to have some diagnosed on 12/07/2019. Not sure if these are psychiatric manifestation of systemic lupus erythematosus as there are no obvious sources of hallucination and nystagmus. May also be related to profound hypothyroidism or BiPolar diagnosis. CBC and CMP, CT head and ABG are WNL however patient noted to have low B12 and vitamin D level elevated CRP and sed rate. C3, C4 and yajd-gnjvgl-vrtztwjh DNA antibodies are normal Copper pending SED and CRP are trending down Continue hydroxychloroquine and methotrexate. Outpatient rheumatology follow up. (4) Encephalopathy Is this a current diagnosis for this admission?: Yes Plan: Significantly improved. Possible new baseline. Nursing reports continued hallucinations at night; patient has been able to explain each situation during my visit the following day (? skilled confabulating by patient) Multifactorial secondary to profound hypothyroidism, SLE, and potentially anoxic brain injury with underlying bipolar disorder. MRI head is benign. Thyroid panel is improved, though not yet within normal ranges. Sed and CRP are trending down. Continue medications as above. Monitor for evidence of infectious process. Mental Health services have re-visited the patient; no concerns regarding cap acity from their perspective. Supportive care. (5) History of urinary retention Is this a current diagnosis for this admission?: Yes Plan: Resolved; has not required straight cath >48 hrs. History of urinary retention likely complication of SLE. Gordillo is discontinued. Continue timed voiding and bladder scan and intermittent straight cath if necessary. continue Flomax Avoid meds with anticholinergic activity. Outpatient urology follow-up. (6) Acute respiratory failure Qualifiers: Respiratory failure complication: hypoxia and hypercapnia Qualified Code(s) : J96.01 - Acute respiratory failure with hypoxia; J96.02 - Acute respiratory failure with hypercapnia Is this a current diagnosis for this admission?: Yes Plan: Resolved. SPO2 WNL on Room Air >48 hrs Acute respiratory failure due to intentional opiate overdose, aspiration pneumonitis or pneumonia. Patient intubated on the scene initially transferred to ICU, extubated on 12/01/2019 and transferred to floor. Received Rocephin x 7 days Continue incentive spirometry and ambulation (7) Gram-positive cocci bacteremia Is this a current diagnosis for this admission?: Yes Plan: Resolved. Blood culture admission 06/29+ for MSSA and Aerococcus viridans. No sign of systemic infection. Repeat cultures no growth so far. Afebrile. WBC WNL. Received one day of clindamycin. Received 7 days of Rocephin for presumptive aspiration pneumonia/pneumonitis. (8) B12 deficiency due to diet Is this a current diagnosis for this admission?: Yes Plan: Mostly due to dietary deficiency complicated by gastric bypass. Patient noted to have macrocytic anemia and low normal B12 level. Patient has history of gastric bypass and not sure if he adequately replaced this her vitamins. Pending methylmalonic acid level. Received daily B12 x 3 doses. Will require continued monitoring and monthly outpatient injections Continue folic acid replacement. Daily multivitamins. Registered dietitian has been consulted. (9) Opiate overdose Qualifiers: Encounter type: initial encounter Injury intent: undetermined intent Qu alified Code(s): T40.604A - Poisoning by unspecified narcotics, undetermined, initial encounter Is this a current diagnosis for this admission?: Yes Plan: Resolved. Mental Health has cleared patient. (10) Physical deconditioning Is this a current diagnosis for this admission?: Yes Plan: Improved mobility with physical therapy observed; ~50 feet with FWW and contact guard. Unfortunately patient has very complicated past medical history. As per family patient suffers from very resistant form of SLE has not responded to any medication and has been followed by certified caregiver as outpatient. Patient also suffers from bipolar depression, has history of gastric bypass and alpha-1 antitrypsin deficiency. Continue aggressive PT OT. Continue appetite stimulant. Continue replacing B12 and other vitamins. Adjustment to thyroid medications Follow-up dietitian recommendations. (11) Vitamin D deficiency Is this a current diagnosis for this admission?: Yes Plan: Most likely due to low p.o. intake complicated by history of gastric bypass. Continue daily vitamin D replacement. (12) Pneumonia Qualifiers: Pneumonia type: aspiration pneumonia Is this a current diagnosis for this admission?: Yes Plan: Resolved. (13) Respiratory failure requiring intubation Is this a current diagnosis for this admission?: Yes Plan: Resolved. (14) Cardiopulmonary arrest with successful resuscitation Is this a current diagnosis for this admission?: Yes Plan: This was at home and begun by family. (+) pulse upon EMS arrival Intubated on scene; extubated on arrival to ICU (15) Suicidal ideation Is this a current diagnosis for this admission?: Yes Plan: Denies any currentsuicidal homicidal ideation. As per psych evaluation patient is not a suicide risk at this point. Does not need to be IVCd. Please refer to psych note. As per admission note patient had intentional opiate overdose and a suicide note was found; patient confirms this was an intentional attempt. Continue supportive measures. Outpatient psychiatry follow-up. - Time Time Spent with patient: 25-34 minutes Medications reviewed and adjusted accordingly: Yes Anticipated discharge: Home with Homehealth Within: within 48 hours
[2019-12-14] MEDS: TAMSULOSIN HCL 0.4 MG CAP.SR.24H PO SCH (18:02)
[2019-12-14] MEDS: TRAZODONE HCL 50 MG TABLET PO SCH (22:53)
[2019-12-15] MEDS: LEVOTHYROXINE SODIUM 0.075 MG TABLET PO SCH (05:37)
[2019-12-15] MEDS: HEPARIN SOD (PORCINE) 5,000 UNIT/ML 1 ML VIAL SUBCUT SCH ×3 (05:37→22:24)
[2019-12-15] MEDS ORDERED: TRAZODONE HCL 50 MG TABLET PO PRN (09:48)
[2019-12-15 11:14] LABS: FREE T3 1.86 pg/mL (2.77-5.27); FREE T4 (FREE THYROXINE) 0.46 ng/dL (0.78-2.19)
[2019-12-15 11:27] LABS: THYROID STIMULATING HORMONE 91.4 uIU/mL (0.47-4.68)
[2019-12-15] MEDS: CHOLECALCIFEROL (D3) 1,000 UNIT (25 MCG) TABLET PO SCH (11:32)
[2019-12-15] MEDS: FERROUS SULFATE 325 MG TABLET PO SCH (11:33)
[2019-12-15] MEDS: PREDNISONE 20 MG TABLET PO SCH (11:33)
[2019-12-15] MEDS: DIVALPROEX SODIUM 250 MG TAB.SR.24H PO SCH ×2 (11:33→17:40)
[2019-12-15] MEDS: MULTIVITAMINS W-IRON TABLET, CHEWABLE PO SCH (11:34)
[2019-12-15] MEDS: POLYETHYLENE GLYCOL 3350 POWDER 17 GM/1 PACKET PO SCH (11:34)
[2019-12-15] MEDS: LIOTHYRONINE SODIUM 25 MCG TABLET PO SCH (11:37)
[2019-12-15] MEDS: HYDROXYCHLOROQUINE SULFATE 200 MG TABLET PO SCH ×2 (11:38→17:41)
[2019-12-15] MEDS: MEGESTROL ACETATE 20 MG TABLET PO SCH (11:38)
--- NOTE | 2019-12-15 13:32 | PDOC PROGRESS REPORT ---
Subjective Progress Note for:: 12/15/19 Subjective:: As per admission note patient is 49 year-old female with a history of SLE, chronic back pain and gastric bypass surgery. She was found on the floor at home by her family and was not breathing. Family initiated CPR and activated EMS. EMS found patient to have a thready pulse but was still not breathing. Patient did vomit a large amount and aspiration is suspected. Patient was intubated on arrival in the emergency department. She was rapidly extubated at family request as the patient had previously made clear that intubation/aggressive interventions were not in line with her wishes. Patient was seen on morning rounds. She was found sitting up to the recliner, comfortably, on room air. She is A&Ox4. She states she is feeling well today. She is frustrated/irritable that she is not yet ready for discharge. Discussed that I will call her music therapist public school system tomorrow and if can arrange for close follow up, will likely be able to discharge her. She denies fever, chest pain, dyspnea, cough, abdominal pain, nausea vomiting diarrhea. She has no other questions or concerns at this time. Happy that her sister was able to visit; per patient her sister is now agreeable to her returning home. Reason For Visit: RESPIRATORY FAILURE, HYPOTENSION, OPIOID OVERDOSE. Physical Exam Vital Signs: Temp Pulse Resp BP Pulse Ox 98.2 F 71 12 129/64 H 100 12/15/19 11:17 12/15/19 11:17 12/15/19 11:17 12/15/19 11:17 12/15/19 11:17 Intake & Output 12/14/19 12/15/19 12/16/19 06:59 06:59 06:59 Intake Total 600 620 Balance 600 620 Weight 81.4 kg 81.4 kg General appearance: PRESENT: no acute distress, cooperative, well-developed, well-nourished Head exam: PRESENT: atraumatic, normocephalic Eye exam: PRESENT: conjunctiva pink, EOMI, PERRLA. ABSENT: scleral icterus Mouth exam: PRESENT: moist, tongue midline Respiratory exam: PRESENT: clear to auscultation rasta, symmetrical, unlabored. ABSENT: rales, rhonchi, wheezes Cardiovascular exam: PRESENT: RRR, +S1, +S2. ABSENT: diastolic murmur, rubs, systolic murmur Vascular exam: PRESENT: normal capillary refill Extremities exam: PRESENT: full ROM. ABSENT: calf tenderness, clubbing, pedal edema Musculoskeletal exam: PRESENT: ambulatory Neurological exam: PRESENT: alert, awake, oriented to person, oriented to place, oriented to time, oriented to situation, CN II-XII grossly intact. ABSENT: motor sensory deficit Psychiatric exam: PRESENT: agitated, appropriate affect, normal mood. ABSENT: homicidal ideation, suicidal ideation Skin exam: PRESENT: dry, intact, warm. ABSENT: cyanosis, rash Results Laboratory Results: 12/10/19 04:57 12/10/19 04:57 12/15/19 12/15/19 10:07 10:07 C-Reactive Protein 8.8 TSH 91.40 H Free T4 0.46 L Free T3 pg/mL 1.86 L 12/01/19 12/02/19 12/02/19 20:22 04:37 20:39 Troponin I 0.031 0.382 NT-Pro-B Natriuret Pep 3010 H 12/03/19 04:12 Troponin I 0.297 NT-Pro-B Natriuret Pep Impressions: Cervical Spine X-Ray 12/01/19 22:29 IMPRESSION: No acute displaced fracture is identified of the upper cervical spine. Cervical Spine CT 12/01/19 23:45 IMPRESSION: No acute intracranial process is identified. No acute bony injury is seen to the cervical spine. Chest X-Ray 12/06/19 00:00 IMPRESSION: Improving aeration in the left lung base. Head CT 12/06/19 00:00 IMPRESSION: No acute intracranial abnormality. Head MRI 12/11/19 00:00 IMPRESSION: NORMAL MRI OF THE BRAIN WITHOUT INTRAVENOUS GADOLINIUM CONTRAST. EVIDENCE OF ACUTE STROKE: NO. Assessment and Plan - Diagnosis (1) Hypothyroidism Qualifiers: Hypothyroidism type: acquired Qualified Code(s): E03.9 - Hypothyroidism, unspecified Is this a current diagnosis for this admission?: Yes Plan: History of thyroid cancer status post thyroidectomy. She has not been taking her levothyroxine for a long time. Was noted to have TSH 98, T4 0.07, T3 0.56. Random cortisol 19.3. Improving TSH 84.3, T4 0.42, T3 2.07 Recheck slightly decreased TSH 91.4, T4 0.46, T3 1.86 Increase to levothyroxine at 125 mcg daily. (1.6 mcg/kg/day) Increase to Cytomel 50 mg daily; patient appears to have improved mentation/motor function w/ addition of T3. We will attempt to call the patient's primary music therapist public school system tomorrow; ifwe can establish close follow-up, she may still be eligible for discharge as her mentation is now stable w/ consistent improvements. (2) Adrenal insufficiency Is this a current diagnosis for this admission?: Yes Plan: Strongly suggested by improved BP response with addition of IV hydrocortisone while in ICU Patient initially requires pressor support. Random cortisol 19.3. Have transitioned to p.o. prednisone; dose reduction today. Possible d/c on prednisone with close endocrinology follow up. (3) SLE (systemic lupus erythematosus related syndrome) Is this a current diagnosis for this admission?: Yes Plan: Does not seem to be acutely exacerbated based on physical examination however patient noted to have visual hallucinations intermittently and was also noted to have some diagnosed on 12/07/2019. Not sure if these are psychiatric manifestation of systemic lupus erythematosus as there are no obvious sources of hallucination and nystagmus. May also be related to profound hypothyroidism or BiPolar diagnosis. CBC and CMP, CT head and ABG are WNL however patient noted to have low B12 and vitamin D level elevated CRP and sed rate. C3, C4 and aihy-rqneuz-yarordos DNA antibodies are normal Copper pending SED and CRP are trending down Continue hydroxychloroquine and methotrexate. Outpatient rheumatology follow up. (4) Encephalopathy Is this a current diagnosis for this admission?: Yes Plan: Significantly improved. Possible new baseline. Nursing reports continued hallucinations at night; patient has been able to explain each situation during my visit the following day (? skilled confabulating by patient) Multifactorial secondary to profound hypothyroidism, SLE, and potentially anoxic brain injury with underlying bipolar disorder. MRI head is benign. Thyroid panel is improved, though not yet within normal ranges. Sed and CRP are trending down. Continue medications as above. Monitor for evidence of infectious process. Mental Health services have re-visited the patient; no concerns regarding capacity from their perspective. Supportive care. (5) History of urinary retention Is this a current diagnosis for this admission?: Yes Plan: Resolved; has not required straight cath >48 hrs. History of urinary retention likely complication of SLE. Gordillo is discontinued. Continue timed voiding and bladder scan and intermittent straight cath if necessary. continue Flomax Avoid meds with anticholinergic activity. Outpatient urology follow-up. (6) Acute respiratory failure Qualifiers: Respiratory failure complication: hypoxia and hypercapnia Qualified Co de(s): J96.01 - Acute respiratory failure with hypoxia; J96.02 - Acute respiratory failure with hypercapnia Is this a current diagnosis for this admission?: Yes Plan: Resolved. SPO2 WNL on Room Air >48 hrs Acute respiratory failure due to intentional opiate overdose, aspiration pneumonitis or pneumonia. Patient intubated on the scene initially transferred to ICU, extubated on 12/01/2019 and transferred to floor. Received Rocephin x 7 days Continue incentive spirometry and ambulation (7) Gram-positive cocci bacteremia Is this a current diagnosis for this admission?: Yes Plan: Resolved. Blood culture admission 06/29+ for MSSA and Aerococcus viridans. No sign of systemic infection. Repeat cultures no growth so far. Afebrile. WBC WNL. Received one day of clindamycin. Received 7 days of Rocephin for presumptive aspiration pneumonia/pneumonitis. (8) B12 deficiency due to diet Is this a current diagnosis for this admission?: Yes Plan: Mostly due to dietary deficiency complicated by gastric bypass. Patient noted to have macrocytic anemia and low normal B12 level. Patient has history of gastric bypass and not sure if he adequately replaced this her vitamins. Pending methylmalonic acid level. Received daily B12 x 3 doses. Will require continued monitoring and monthly o utpatient injections Continue folic acid replacement. Daily multivitamins. Registered dietitian has been consulted. (9) Opiate overdose Qualifiers: Encounter type: initial encounter Injury intent: undetermined intent Qualified Code(s): T40.604A - Poisoning by unspecified narcotics, undetermined, initial encounter Is this a current diagnosis for this admission?: Yes Plan: Resolved. Mental Health has cleared patient. (10) Physical deconditioning Is this a current diagnosis for this admission?: Yes Plan: Improved mobility with physical therapy observed; ~50 feet with FWW and contact guard. Unfortunately patient has very complicated past medical history. As per family patient suffers from very resistant form of SLE has not responded to any medication and has been followed by track watchman as outpatient. Patient also suffers from bipolar depression, has history of gastric bypass and alpha-1 antitrypsin deficiency. Continue aggressive PT OT. Continue appetite stimulant. Continue replacing B12 and other vitamins. Adjustment to thyroid medications Follow-up dietitian recommendations. (11) Vitamin D deficiency Is this a current diagnosis for this admission?: Yes Plan: Most likely due to low p.o. intake complicated by history of gastric bypass. Continue daily vitamin D replacement. (12) Pneumonia Qualifiers: Pneumonia type: aspiration pneumonia Is this a current diagnosis for this admission?: Yes Plan: Resolved. (13) Respiratory failure requiring intubation Is this a current diagnosis for this admission?: Yes Plan: Resolved. (14) Cardiopulmonary arrest with successful resuscitation Is this a current diagnosis for this admission?: Yes Plan: This was at home and begun by family. (+) pulse upon EMS arrival Intubated on scene; extubated on arrival to ICU (15) Suicidal ideation Is this a current diagnosis for this admission?: Yes Plan: Denies any currentsuicidal homicidal ideation. As per psych evaluation patient is not a suicide risk at this point. Does not need to be IVCd. Please refer to psych note. As per admission note patient had intentional opiate overdose and a suicide note was found; patient confirms this was an intentional attempt. Continue supportive measures. Outpatient psychiatry follow-up. - Time Time Spent with patient: 35 or more minutes Medications reviewed and adjusted accordingly: Yes Anticipated discharge: Home with Homehealth Within: within 24 hours
[2019-12-15] MEDS: TAMSULOSIN HCL 0.4 MG CAP.SR.24H PO SCH (17:40)
[2019-12-15] MEDS: TRAZODONE HCL 50 MG TABLET PO SCH (22:24)
[2019-12-16] MEDS: HEPARIN SOD (PORCINE) 5,000 UNIT/ML 1 ML VIAL SUBCUT SCH (06:00)
[2019-12-16] MEDS ORDERED: LEVOTHYROXINE SODIUM 0.075 MG TABLET PO SCH (06:00)
[2019-12-16] MEDS ORDERED: LEVOTHYROXINE SODIUM 0.1 MG TABLET PO SCH (06:00)
[2019-12-16] MEDS ORDERED: LEVOTHYROXINE SODIUM 0.025 MG TABLET PO SCH (06:00)
[2019-12-16 07:16] LABS: FREE T3 2.41 pg/mL (2.77-5.27); FREE T4 (FREE THYROXINE) 0.42 ng/dL (0.78-2.19)
[2019-12-16 07:29] LABS: THYROID STIMULATING HORMONE 63.6 uIU/mL (0.47-4.68)
[2019-12-16] MEDS: MEGESTROL ACETATE 20 MG TABLET PO SCH (09:19)
[2019-12-16] MEDS: FERROUS SULFATE 325 MG TABLET PO SCH (09:20)
[2019-12-16] MEDS: DIVALPROEX SODIUM 250 MG TAB.SR.24H PO SCH (09:20)
[2019-12-16] MEDS: CHOLECALCIFEROL (D3) 1,000 UNIT (25 MCG) TABLET PO SCH (09:20)
[2019-12-16] MEDS: MULTIVITAMINS W-IRON TABLET, CHEWABLE PO SCH (09:21)
[2019-12-16] MEDS: POLYETHYLENE GLYCOL 3350 POWDER 17 GM/1 PACKET PO SCH (09:21)
[2019-12-16] MEDS: HYDROXYCHLOROQUINE SULFATE 200 MG TABLET PO SCH (09:21)
[2019-12-16] MEDS ORDERED: PREDNISONE 20 MG TABLET PO SCH (10:00)
[2019-12-16] MEDS ORDERED: LIOTHYRONINE SODIUM 25 MCG TABLET PO SCH (10:00)
[2019-12-16 11:11] VITALS: BP 110/67
--- NOTE | 2019-12-16 12:13 | PDOC DISCHARGE SUMMARY ---
Impression - Admit/DC Date/PCP Admission Date/Primary Care Provider: 12/01/19 22:04 Discharge Date: 12/16/19 - Discharge Diagnosis (1) Hypothyroidism Is this a current diagnosis for this admission?: Yes (2) Adrenal insufficiency Is this a current diagnosis for this admission?: Yes (3) SLE (systemic lupus erythematosus related syndrome) Is this a current diagnosis for this admission?: Yes (4) Encephalopathy Is this a current diagnosis for this admission?: Yes (5) History of urinary retention Is this a current diagnosis for this admission?: Yes (6) Acute respiratory failure Is this a current diagnosis for this admission?: Yes (7) Gram-positive cocci bacteremia Is this a current diagnosis for this admission?: Yes (8) B12 deficiency due to diet Is this a current diagnosis for this admission?: Yes (9) Opiate overdose Is this a current diagnosis for this admission?: Yes (10) Physical deconditioning Is this a current diagnosis for this admission?: Yes (11) Vitamin D deficiency Is this a current diagnosis for this admission?: Yes (12) Pneumonia Is this a current diagnosis for this admission?: Yes (13) Respiratory failure requiring intubation Is this a current diagnosis for this admission?: Yes (14) Cardiopulmonary arrest with successful resuscitation Is this a current diagnosis for this admission?: Yes (15) Suicidal ideation Is this a current diagnosis for this admission?: Yes - Additional Information Resuscitation Status: Do Not Resuscitate Discharge Diet: Regular Discharge Activity: Activity As Tolerated, Balance Activity w/Rest, Slowly Increase Activity, Supervised Activity Referrals: CELSA AKERS MD [NO LOCAL MD] - 12/19/19 9:20 am JULIO CÉSAR AKERS MD [NO LOCAL MD] - 12/19/19 8:45 am Prescriptions: RX: Liothyronine Sodium [Cytomel 25 Mcg Tablet] 50 mcg PO DAILY #60 tablet RX: Prednisone [Deltasone 20 mg Tablet] 20 mg PO ASDIR PRN #18 tablet PRN Reason: RX: Divalproex Sodium [Depakote ER 250 mg Tablet] 250 mg PO BID #60 tab.sr.24h RX: Trazodone HCl [Desyrel 50 mg Tablet] 25 mg PO HSP PRN #30 tablet PRN Reason: RX: Levothyroxine Sodium [Euthyrox] 125 mcg PO DAILY #30 tablet RX: Ferrous Sulfate [Feosol 325 mg Tablet] 325 mg PO DAILY #30 tablet RX: Tamsulosin HCl [Flomax 0.4 mg Cap.sr] 0.4 mg PO PCSUPPER #30 cap.sr.24h RX: Megestrol Acetate [Megace 20 mg Tablet] 40 mg PO DAILY #60 tablet Home Medications: RX: Folic Acid [Folvite 1 mg Tablet] 1 mg PO .ASDIR 12/02/19 RX: Hydroxychloroquine Sulfate [Plaquenil 200 mg Tablet] 200 mg PO BID 12/02/19 RX: Cholecalciferol (Vitamin D3) [Vitamin D3 1000 Unit Tablet] 6,000 unit PO DAILY tablet 12/16/19 RX: Divalproex Sodium [Depakote ER 250 mg Tablet] 250 mg PO BID #60 tab.sr.24h 12/16/19 RX: Ferrous Sulfate [Feosol 325 mg Tablet] 325 mg PO DAILY #30 tablet 12/16/19 RX: Levothyroxine Sodium [Euthyrox] 125 mcg PO DAILY #30 tablet 12/16/19 RX: Liothyronine Sodium [Cytomel 25 Mcg Tablet] 50 mcg PO DAILY #60 tablet 12/16/19 RX: Megestrol Acetate [Megace 20 mg Tablet] 40 mg PO DAILY #60 tablet 12/16/19 RX: Multivitamins W-Iron [Flintstones Chewable Multivit W/Fe Tab] 2 tab PO DAILY #0 tab.chew 12/16/19 RX: Polyethylene Glycol 3350 [Miralax Powder 17 gm/Packet] 17 gm PO DAILY powd.pack 12/16/19 RX: Prednisone [Deltasone 20 mg Tablet] 20 mg PO ASDIR PRN #18 tablet 12/16/19 RX: Tamsulosin HCl [Flomax 0.4 mg Cap.sr] 0.4 mg PO PCSUPPER #30 cap.sr.24h 12/16/19 RX: Trazodone HCl [Desyrel 50 mg Tablet] 25 mg PO HSP PRN #30 tablet 12/16/19 History of Present Illiness History of Present Illness: Per H&P by ALEXANDRA NarayanC: 49 year-old female with a history of SLE, chronic back pain and gastric bypass surgery. She was found on the floor at home by her family and was not breathing. Family initiated CPR and activated EMS. EMS found patient to have a thready pulse but was still not breathing. Patient did vomit a large amount and aspiration is suspected. Patient was intubated on arrival in the emergency department. She had multiple episodes of hypotension and a Levophed drip was started. Critical care was called to evaluate the patient given her acute respiratory failure hypotension. Extensive conversation held with family including the patient's sister, and daughter and who is her next of kin. Family all agree that she would not have wanted to be intubated and they would like her to be extubated this evening. In review of the patient's prior stated wishes as well as a consensus from family members, the decision was made to remove ventilatory support. Family has been permitted to visit during what could be an end-of-life situation. They understand that when extubated, patient may very well survive and the outcome would be unknown. At this time, patient is arousable and remains intubated while awaiting family. Hospital Course Hospital Course: (1) Hypothyroidism Improving. History of thyroid cancer status post thyroidectomy. She has not been taking her levothyroxine for a long time. TSH 98, T4 0.07, T3 0.56. Random cortisol 19.3. Improving TSH 84.3, T4 0.42, T3 2.07 Recheck slightly decreased TSH 91.4, T4 0.46, T3 1.86 TSH panel day of discharge TSH 63.6, T4 0.42, T3 2.41 Continue levothyroxine at 125 mcg daily. (1.6 mcg/kg/day) Increased Cytomel 50 mg daily; rapid improvement following initiation. Follow up appointments with her established furnace tender, Dr. Akers, have been scheduled for morning. (2) Adrenal insufficiency Patient initially required pressor support. Random cortisol 19.3. Placed on high dose steroids. Have gradually weaned. Have transitioned to p.o. prednisone. Continues on gradual prednisone taper with close endocrinology follow up. (3) SLE (systemic lupus erythematosus related syndrome) Does not seem to be acutely exacerbated based on physical examination however patient noted to have visual hallucinations intermittently and was also noted to have some diagnosed on 12/07/2019. Not sure if these are psychiatric manifestation of systemic lupus erythematosus as there are no obvious sources of hallucination and nystagmus. May also be related to profound hypothyroidism or BiPolar diagnosis. CBC and CMP, CT head and ABG are WNL however patient noted to have low B12 and vitamin D level elevated CRP and sed rate. C3, C4 and [id number] DNA antibodies are normal Copper pending SED and CRP are trending down Continue hydroxychloroquine and methotrexate. Outpatient rheumatology follow up on morning. (4) Encephalopathy Resolved. Multifactorial secondary to profound hypothyroidism, SLE, and potentially anoxic brain injury with underlying bipolar disorder. MRI head is benign. Thyroid panel is improved, though not yet within normal ranges. Sed and CRP are trending down. Continue medications as above. Mental Health services have re-visited the patient; no concerns regarding capacity from their perspective. Supportive care. (5) History of urinary retention Resolved; has not required straight cath >48 hrs. History of urinary retention likely complication of SLE. Gordillo is discontinued. Continue Flomax Avoid meds with anticholinergic activity. Outpatient urology follow-up as needed. (6) Acute respiratory failure Resolved. SPO2 WNL on Room Air >48 hrs Acute respiratory failure due to intentional opiate overdose, aspiration pneumonitis or pneumonia. Patient intubated on the scene initially transferred to ICU, extubated on 12/01/2019 and transferred to floor. Received Rocephin x 7 days Continue incentive spirometry and ambulation (7) Gram-positive cocci bacteremia Resolved. Blood culture admission 06/29+ for MSSA and Aerococcus viridans. No sign of systemic infection. Repeat cultures no growth so far. Afebrile. WBC WNL. Received one day of clindamycin. Received 7 days of Rocephin for presumptive aspiration pneumonia/pneumonitis. (8) B12 deficiency due to diet Mostly due to dietary deficiency complicated by gastric bypass. Patient noted to have macrocytic anemia and low normal B12 level. Patient has history of gastric bypass and not sure if he adequately replaced this her vitamins. Pending methylmalonic acid level. Received daily B12 x 3 doses. Will require continued monitoring and monthly outpatient injections Continue folic acid replacement. Daily multivitamins. Registered dietitian has been consulted. (9) Opiate overdose Resolved. Mental Health has cleared patient. Outpatient mental health follow up. (10) Physical deconditioning Improved mobility with physical therapy observed; ~50 feet with FWW and contact guard. Unfortunately patient has very complicated past medical history. As per family patient suffers from very resistant form of SLE has not responded to any medication and has been followed by [facility] radio operator as outpatient. Patient also suffers from bipolar depression, has history of gastric bypass and alpha-1 antitrypsin deficiency. Continue appetite stimulant. Continue replacing B12 and other vitamins. Adjustment to thyroid medications Home Health nursing and Physical therapy has been arranged. (11) Vitamin D deficiency Most likely due to low p.o. intake complicated by history of gastric bypass. Continue daily vitamin D replacement. (12) Pneumonia Resolved. (13) Respiratory failure requiring intubation Resolved. (14) Cardiopulmonary arrest with successful resuscitation This was at home and begun by family. (+) pulse upon EMS arrival Intubated on scene; extubated on arrival to ICU (15) Suicidal ideation Denies any currentsuicidal homicidal ideation. As per psych evaluation patient is not a suicide risk at this point. Does not need to be IVCd. Please refer to psych note. As per admission note patient had intentional opiate overdose and a suicide note was found; patient confirms this was an intentional attempt. Continue supportive measures. Outpatient psychiatry follow-up. Physical Exam Vital Signs: Temp Pulse Resp BP Pulse Ox 98.2 F 68 14 110/67 100 12/16/19 11:07 12/16/19 11:07 12/16/19 11:07 12/16/19 11:07 12/16/19 11:07 Intake & Output 12/15/19 12/16/19 12/17/19 06:59 06:59 06:59 Intake Total 620 975 Balance 620 975 Weight 81.4 kg 81.4 kg General appearance: PRESENT: no acute distress, well-developed, well-nourished Head exam: PRESENT: atraumatic, normocephalic Eye exam: PRESENT: conjunctiva pink, EOMI, PERRLA. ABSENT: scleral icterus Mouth exam: PRESENT: moist, tongue midline Respiratory exam: PRESENT: clear to auscultation rasta, symmetrical, unlabored. ABSENT: rales, rhonchi, wheezes Cardiovascular exam: PRESENT: RRR, +S1, +S2. ABSENT: diastolic murmur, rubs, systolic murmur Pulses: PRESENT: normal dorsalis pedis pul Vascular exam: PRESENT: normal capillary refill GI/Abdominal exam: PRESENT: normal bowel sounds, soft. ABSENT: distended, guarding, mass, organolmegaly, rebound, tenderness Rectal exam: PRESENT: deferred Extremities exam: PRESENT: full ROM. ABSENT: calf tenderness, clubbing, pedal edema Musculoskeletal exam: PRESENT: ambulatory - w/ FWW Neurological exam: PRESENT: alert, awake, oriented to person, oriented to place, oriented to time, oriented to situation, CN II-XII grossly intact. ABSENT: motor sensory deficit Psychiatric exam: PRESENT: appropriate affect, normal mood. ABSENT: homicidal ideation, suicidal ideation Skin exam: PRESENT: dry, intact, warm. ABSENT: cyanosis, rash Results Laboratory Results: WBC 6.1 10^3/uL (4.0-10.5) 12/10/19 04:57 RBC 3.21 10^6/uL (3.72-5.28) L 12/10/19 04:57 Hgb 10.9 g/dL (12.0-15.5) L 12/10/19 04:57 Hct 32.0 % (36.0-47.0) L 12/10/19 04:57 MCV 100 fl (80-97) H 12/10/19 04:57 MCH 33.9 pg (27.0-33.4) H 12/10/19 04:57 MCHC 34.0 g/dL (32.0-36.0) 12/10/19 04:57 RDW 14.7 % (11.5-14.0) H 12/10/19 04:57 Plt Count 250 10^3/uL (150-450) 12/10/19 04:57 Lymph % (Auto) Not Reportable 12/06/19 18:19 [place] % (Auto) Not Reportable 12/06/19 18:19 Eos % (Auto) Not Reportable 12/06/19 18:19 Baso % (Auto) Not Reportable 12/06/19 18:19 Reticulocyte # 0.034 10^6/uL (0.028-0.122) 12/07/19 04:40 Absolute Neuts (auto) Not Reportable 12/06/19 18:19 Absolute Lymphs (auto) Not Reportable 12/06/19 18:19 Absolute Monos (auto) Not Reportable 12/06/19 18:19 Absolute Eos (auto) Not Reportable 12/06/19 18:19 Absolute Basos (auto) Not Reportable 12/06/19 18:19 Total Counted 100 12/06/19 18:19 Seg Neutrophils % Not Reportable 12/06/19 18:19 Seg Neuts % (Manual) 73 % (42-78) 12/06/19 18:19 Band Neutrophils % 2 % (3-5) L 12/06/19 18:19 Lymphocytes % (Manual) 16 % (13-45) 12/06/19 18:19 Monocytes % (Manual) 6 % (3-13) 12/06/19 18:19 Eosinophils % (Manual) 3 % (0-6) 12/06/19 18:19 Basophils % (Manual) 0 % (0-2) 12/06/19 18:19 Abs Neuts (Manual) 4.2 10^3/uL (1.7-8.2) 12/06/19 18:19 Abs Lymphs (Manual) 0.9 10^3/uL (0.5-4.7) 12/06/19 18:19 Abs Monocytes (Manual) 0.3 10^3/uL (0.1-1.4) 12/06/19 18:19 Absolute Eos (Manual) 0.2 10^3/uL (0.0-0.6) 12/06/19 18:19 Abs Basophils (Manual) 0.0 10^3/uL (0.0-0.2) 12/06/19 18:19 Platelet Comment ADEQUATE 12/06/19 18:19 Anisocytosis SLIGHT 12/06/19 18:19 Macrocytosis SLIGHT 12/06/19 18:19 RBC Morph Comment NORMO-CYTIC/CHROMIC 12/06/19 18:19 ESR 75 mm/hr (0-20) H 12/16/19 05:51 Retic Count (auto) 1.14 % (0.66-2.85) 12/07/19 04:40 PT 13.3 SEC (11.4-15.4) 12/01/19 20:22 INR 1.01 12/01/19 20:22 Carbonic Acid 1.22 mmol/L (1.05-1.35) 12/06/19 17:57 HCO3/H2CO3 Ratio 24:1 12/06/19 17:57 ABG pH 7.48 (7.35-7.45) H 12/06/19 17:57 ABG pCO2 40.6 mmHg (35-45) 12/06/19 17:57 ABG pO2 90.9 mmHg (80-100) 12/06/19 17:57 ABG HCO3 29.6 mmol/L (20-24) H 12/06/19 17:57 ABG Total CO2 30.9 mmol/L (21-25) H 12/06/19 17:57 ABG O2 Saturation 97.4 % (94-98) 12/06/19 17:57 ABG Base Excess 5.7 mmol/L 12/06/19 17:57 FiO2 50% 12/06/19 17:57 Sodium 137.7 mmol/L (137-145) 12/10/19 04:57 Potassium 3.6 mmol/L (3.6-5.0) 12/10/19 04:57 Chloride 102 mmol/L (98-107) 12/10/19 04:57 Carbon Dioxide 26 mmol/L (22-30) 12/10/19 04:57 Anion Gap 10 (5-19) 12/10/19 04:57 BUN 5 mg/dL (7-20) L 12/10/19 04:57 Creatinine 0.88 mg/dL (0.52-1.25) 12/10/19 04:57 Est GFR ( Amer) > 60 (>60) 12/10/19 04:57 Est GFR (MDRD) Non-Af > 60 (>60) 12/10/19 04:57 Glucose 191 mg/dL (75-110) H 12/10/19 04:57 POC Glucose 203 mg/dL (70-110) H 12/06/19 18:50 Lactic Acid 2.8 mmol/L (0.7-2.1) H 12/02/19 04:37 Calcium 9.2 mg/dL (8.4-10.2) 12/10/19 04:57 Phosphorus 2.5 mg/dL (2.5-4.5) 12/06/19 18:19 Magnesium 2.0 mg/dL (1.6-2.3) 12/07/19 04:40 Iron 46.8 ug/dL (37-170) 12/07/19 04:40 TIBC 293 ug/dL (250-450) 12/07/19 04:40 % Saturation 16 % 12/07/19 04:40 Transferrin 220.18 mg/dL (206.00-381.00) 12/07/19 04:40 Ferritin 242.00 ng/mL (6.2-137.0) H 12/07/19 04:40 Total Bilirubin 0.5 mg/dL (0.2-1.3) 12/06/19 18:19 Direct Bilirubin 0.1 mg/dL (0.0-0.4) 12/06/19 18:19 Neonat Total Bilirubin Not Reportable 12/06/19 18:19 Neonat Direct Bilirubin Not Reportable 12/06/19 18:19 Neonat Indirect Bili Not Reportable 12/06/19 18:19 AST 28 U/L (14-36) 12/06/19 18:19 ALT 14 U/L (<35) 12/06/19 18:19 Alkaline Phosphatase 98 U/L (38-126) 12/06/19 18:19 Troponin I 0.297 ng/mL 12/03/19 04:12 C-Reactive Protein < 5.0 mg/L (<10.0) 12/16/19 05:51 NT-Pro-B Natriuret Pep 3010 pg/mL (<125) H 12/02/19 04:37 Total Protein 7.2 g/dL (6.3-8.2) 12/06/19 18:19 Albumin 3.9 g/dL (3.5-5.0) 12/06/19 18:19 Vitamin B12 267.0 pg/mL (239-931) 12/07/19 04:40 Methylmalonic Acid 142 nmol/L (0-378) 12/07/19 18:15 MMA Disclaimer Comment (.) 12/07/19 18:15 Vitamin D 25-Hydroxy < 12.8 ng/mL (14.7-68.3) L 12/07/19 18:15 Folate 5.30 ng/mL (>2.76) 12/07/19 04:40 TSH 63.60 uIU/mL (0.47-4.68) H 12/16/19 05:51 Free T4 0.42 ng/dL (0.78-2.19) L 12/16/19 05:51 Free T3 pg/mL 2.41 pg/mL (2.77-5.27) L 12/16/19 05:51 Serum HCG, Qual NEGATIVE (NEGATIVE) 12/01/19 20:22 Random Cortisol 19.30 ug/dL (None Established) 12/02/19 20:39 Urine Color YELLOW 12/01/19 20:09 Urine Appearance CLEAR 12/01/19 20:09 Urine pH 5.0 (5.0-9.0) 12/01/19 20:09 Ur Specific [place] 1.008 12/01/19 20:09 Urine Protein 100 mg/dL (NEGATIVE) H 12/01/19 20:09 Urine Glucose (UA) NEGATIVE mg/dL (NEGATIVE) 12/01/19 20:09 Urine Ketones NEGATIVE mg/dL (NEGATIVE) 12/01/19 20:09 Urine Blood NEGATIVE (NEGATIVE) 12/01/19 20:09 Urine Nitrite (Reflex) NEGATIVE (NEGATIVE) 12/01/19 20:09 Urine Bilirubin NEGATIVE (NEGATIVE) 12/01/19 20:09 Urine Urobilinogen NEGATIVE mg/dL (<2.0) 12/01/19 20:09 Leukocyte Esterase Rfl NEGATIVE (NEGATIVE) 12/01/19 20:09 U Hyaline Cast (Auto) 7 /LPF 12/01/19 20:09 Urine WBC (Reflex) 1 /HPF 12/01/19 20:09 Squamous Epi Cells Auto 1 /HPF 12/01/19 20:09 Urine Mucus (Auto) RARE /LPF 12/01/19 20:09 Urine Ascorbic Acid NEGATIVE (NEGATIVE) 12/01/19 20:09 Salicylates < 1.0 mg/dL (2.0-20.0) L 12/01/19 20:22 Urine Opiates Screen UNCONFIRMED POSITIVE 12/01/19 20:09 Urine Methadone Screen NEGATIVE 12/01/19 20:09 Acetaminophen < 10 ug/mL (10-30) L 12/01/19 20:22 Ur Barbiturates Screen NEGATIVE 12/01/19 20:09 Ur Phencyclidine Scrn NEGATIVE 12/01/19 20:09 Ur Amphetamines Screen NEGATIVE 12/01/19 20:09 U Benzodiazepines Scrn NEGATIVE 12/01/19 20:09 Urine Cocaine Screen NEGATIVE 12/01/19 20:09 U Marijuana (THC) Screen NEGATIVE 12/01/19 20:09 Serum Alcohol < 10 mg/dL (NONE DETECTED) 12/01/19 20:22 Copper 98 ug/dL (72-166) 12/07/19 16:15 Double Strand DNA Ab 1 IU/mL (0-9) 12/07/19 16:15 Complement C3 146 mg/dL (82-167) 12/07/19 18:15 Complement C4 36 mg/dL (14-44) 12/07/19 16:15 12/01/19 12/02/19 12/02/19 20:22 04:37 20:39 Troponin I 0.031 0.382 NT-Pro-B Natriuret Pep 3010 H 12/03/19 04:12 Troponin I 0.297 NT-Pro-B Natriuret Pep Impressions: Chest X-Ray 12/01/19 20:10 IMPRESSION: Clear lungs. Endotracheal tube tip is located within the trachea, approximately 3.4 cm above the parveen. Diffuse dilatation of bowel loops throughout the imaged upper abdomen, indeterminate. copyright 2010 [employer]- All Rights Reserved Cervical Spine X-Ray 12/01/19 22:29 IMPRESSION: No acute displaced fracture is identified of the upper cervical spine. Cervical Spine CT 12/01/19 23:45 IMPRESSION: No acute intracranial process is identified. No acute bony injury is seen to the cervical spine. Head CT 12/02/19 00:29 IMPRESSION: No acute intracranial process is identified. No acute bony injury is seen to the cervical spine. Chest X-Ray 12/05/19 00:00 IMPRESSION: Atelectasis versus recurrent pneumonia left lower lobe status postextubation. Chest X-Ray 12/06/19 00:00 IMPRESSION: Improving aeration in the left lung base. Head CT 12/06/19 00:00 IMPRESSION: No acute intracranial abnormality. Head MRI 12/11/19 00:00 IMPRESSION: NORMAL MRI OF THE BRAIN WITHOUT INTRAVENOUS GADOLINIUM CONTRAST. EVIDENCE OF ACUTE STROKE: NO. Plan Plan of Treatment: Patient is discharged home, in stable condition, into the care of family members. Arrangements have been made for the patient to receive home health nursing and physical therapy services. She is advised to follow-up with her primary care provider within 1 week. Follow-up appointments have been made with both her furnace tender and [employer] radio operator for this . Patient is to also follow-up with her established mental health team. She is instructed to continue her medications as prescribed. Return to emergency department as needed for concerning symptoms. Time Spent: Greater than 30 Minutes Stroke Is this a Stroke Patient?: No Acute Heart Failure - Is this a Heart Failure Patient?: No
== END 2019-12-16 11:53 | disposition home health service (06) | DRG 917 ==
LOC: ER 19:38 → EH 22:04 → ICU 12-02 00:55 → 4S 12-04 00:11
PROVIDERS: ADMIT Internal Medicine Critical Care Medicine; ATTEND Registered Nurse
PROC: 5A1935Z Respiratory Ventilation, Less than 24 Consecutive Hours (ICD-10-PCS; 2019-12-02)
PROC: 5A1955Z Respiratory Ventilation, Greater than 96 Consecutive Hours (ICD-10-PCS; principal; 2019-12-03)
PROC: 0BH17EZ Insertion of Endotracheal Airway into Trachea, Via Natural or Artificial Opening (ICD-10-PCS; 2019-12-03)
PROC: B24BZZ4 Ultrasonography of Heart with Aorta, Transesophageal (ICD-10-PCS; 2019-12-03)
DX: T40.602A Poisoning by unspecified narcotics, intentional self-harm, initial encounter (principal); I46.9 Cardiac arrest, cause unspecified; J69.0 Pneumonitis due to inhalation of food and vomit; J96.01 Acute respiratory failure with hypoxia; J96.02 Acute respiratory failure with hypercapnia; E27.40 Unspecified adrenocortical insufficiency; G93.40 Encephalopathy, unspecified; R45.851 Suicidal ideations; R78.81 Bacteremia; T42.6X2A Poisoning by other antiepileptic and sedative-hypnotic drugs, intentional self-harm, initial encounter; M32.9 Systemic lupus erythematosus, unspecified; E55.9 Vitamin D deficiency, unspecified; M54.9 Dorsalgia, unspecified; I95.9 Hypotension, unspecified; B95.61 Methicillin susceptible Staphylococcus aureus infection as the cause of diseases classified elsewhere; F31.9 Bipolar disorder, unspecified; Z66 Do not resuscitate; G89.29 Other chronic pain; Y92.9 Unspecified place or not applicable; Z78.1 Physical restraint status; E89.0 Postprocedural hypothyroidism; Y83.6 Removal of other organ (partial) (total) as the cause of abnormal reaction of the patient, or of later complication, without mention of misadventure at the time of the procedure; B96.89 Other specified bacterial agents as the cause of diseases classified elsewhere; E11.9 Type 2 diabetes mellitus without complications; F90.9 Attention-deficit hyperactivity disorder, unspecified type; Z85.850 Personal history of malignant neoplasm of thyroid; D51.3 Other dietary vitamin B12 deficiency anemia; Z88.2 Allergy status to sulfonamides; Z98.84 Bariatric surgery status; Z79.899 Other long term (current) drug therapy; Z79.84 Long term (current) use of oral hypoglycemic drugs; Z79.52 Long term (current) use of systemic steroids
CPT/HCPCS: 36415; 36600; 51702; 70450; 70551; 71045; 71046; 72040; 72125; 80048; 80053; 80307; 81001; 82306; 82525; 82533; 82607; 82728; 82746; 82803; 82962; 83540; 83550; 83605; 83735; 83880; 83921; 84100; 84439; 84443; 84466; 84481; 84484; 84703; 85025; 85027; 85045; 85610; 85652; 86140; 86160; 86225; 87040; 87077; 87150; 87186; 93005; 93010; 93306; 94002; 94003; 94640; 94660; 94799; 96365; 96368; 99221; 99291; 99292; C9113; J0330; J0696; J1644; J1720; J2310; J2543; J2920; J3370; J3420; J3480; J3490; J7030; J7042; J7060; J7120; J7512; J7620